=== PATIENT | male | born 1970 | race Caucasian/White ===

== ENCOUNTER → 2018-04-09 | Outpatient (REF) | payer BC | LOC: M WUC 11:04 | DX: N50.82 Scrotal pain (principal) | CPT/HCPCS: 87086 ==

== ENCOUNTER 2018-04-11 15:17 | Emergency (ER) | payer BC ==
[2018-04-11 17:12] LABS: BASO # 0.1 10^3/uL (0.0-0.2); BASO % 1.3 % (0.0-1.0); EOS % 0.3 % (0.0-3.0); HEMATOCRIT 42.7 % (42.0-52.0); HEMOGLOBIN 14.2 g/dl (13.5-17.5); IMMATURE GRANULOCYTE % 0.3 % (0-3.0); LYMPH # 3.1 10^3/uL (1.5-4.5); LYMPH % 41.9 % (24.0-44.0); MEAN CORPUSCULAR HEMOGLOBIN 33.2 pg (27.0-33.0); MEAN CORPUSCULAR HGB CONC 33.3 g/dl (32.0-36.5); MEAN CORPUSCULAR VOLUME 99.8 fl (80.0-96.0); MONO # 0.6 10^3/uL (0.0-0.8); MONO % 8.2 % (0.0-5.0); NEUTROPHILS # 3.6 10^3/uL (1.8-7.7); PLATELET COUNT, AUTOMATED 215 10^3/uL (150-450); RED BLOOD COUNT 4.28 10^6/uL (4.30-6.10); RED CELL DISTRIBUTION WIDTH 13.5 % (11.5-14.5); WHITE BLOOD COUNT 7.4 10^3/uL (4.0-10.0)
[2018-04-11] MEDS: NS 1,000 ML IV (17:20)
[2018-04-11 17:33] LABS: KETONE, URINE AUTO RFX TRACE mg/dL (NEGATIVE); LEUKOCYTE ESTERASE UR AUTO RFX NEGATIVE (NEGATIVE); MUCUS, URINE RFX SMALL (NEGATIVE); NITRITE, URINE AUTO RFX NEGATIVE (NEGATIVE); RBC, URINE AUTO RFX 3 /HPF (0-3); SPECIFIC GRAVITY UR AUTO RFX 1.018 (1.002-1.035); SQUAM EPITHELIAL CELL UR AURFX 1 /HPF (0-6); WBC, URINE AUTO RFX 2 /HPF (0-3)
[2018-04-11 18:44] LABS: ANION GAP 11 MEQ/L (8-16); BLOOD UREA NITROGEN 11 MG/DL (7-18); CALCIUM LEVEL 8.6 MG/DL (8.5-10.1); CARBON DIOXIDE LEVEL 23 MEQ/L (21-32); CHLORIDE LEVEL 109 MEQ/L (98-107); CREATININE FOR GFR 0.64 MG/DL (0.70-1.30); ETHYL ALCOHOL (ETHANOL) 0.281 % (0.000-0.010); GLOMERULAR FILTRATION RATE > 60.0 (>60); GLUCOSE, FASTING 71 MG/DL (70-100); POTASSIUM SERUM 3.7 MEQ/L (3.5-5.1); SODIUM LEVEL 143 MEQ/L (136-145)
[2018-04-11] MEDS: cefTRIAXone SOD 250 MG VIAL (J0696) IM (19:20)
[2018-04-11 21:19] LABS: CHLAMYDIA DNA AMPLIFICATION POSITIVE (NEGATIVE); GC DNA AMPLIFICATION NEGATIVE (NEGATIVE)
== END 2018-04-11 19:21 | disposition home or self-care (01) ==
LOC: M ED 15:17
DX: N45.1 Epididymitis (principal)
CPT/HCPCS: J0696

== ENCOUNTER 2018-06-10 10:26 | Day surgery (SDC) | payer BC ==
[2018-06-10] MEDS ORDERED: PROPOFOL 200 MG/20 ML VIAL As Ordered (10:41)
[2018-06-10] MEDS ORDERED: dexameTHASONE 4 MG/ML 1ML VIAL (J1100) As Ordered (10:42)
[2018-06-10] MEDS ORDERED: ROCURONIUM BROMIDE 50 MG/5 ML VIAL As Ordered ×2 (10:42→12:55)
[2018-06-10] MEDS ORDERED: LIDOCAINE 2% INJ 100 MG/5 ML SDV (FOR ANES.) As Ordered (10:42)
[2018-06-10] MEDS ORDERED: ONDANSETRON 4MG/2ML VIAL (J2405) As Ordered (10:42)
[2018-06-10] MEDS ORDERED: fentaNYL 250 MCG/5 ML INJECTION (J3010) As Ordered (10:43)
[2018-06-10] MEDS ORDERED: MIDAZOLAM INJ 2 MG/2 ML VIAL (J2250) As Ordered (10:43)
[2018-06-10] MEDS: LR 1,000 ML IV ×2 (11:00→13:25)
[2018-06-10] MEDS ORDERED: MIDAZOLAM INJ 2 MG/2 ML VIAL (J2250) IV (11:15)
[2018-06-10] MEDS: ceFAZolin SOD 1 GM in D5W MINI-BAG PLUS 50 ML IV (12:07)
[2018-06-10] MEDS: BUPIVACAINE/EPIN 0.25% 30 ML VIAL As Ordered (12:15)
[2018-06-10] MEDS ORDERED: KETOROLAC 60 MG/2 ML VIAL (J1885) As Ordered (12:20)
[2018-06-10] MEDS ORDERED: SUGAMMADEX SODIUM 500 MG/5 ML VIAL (BRIDION) As Ordered (12:23)
[2018-06-10] MEDS ORDERED: PHENYLephrine HCL 500 MCG/5 ML (100MCG/ML) SYRINGE (J2370) As Ordered (12:26)
[2018-06-10] MEDS ORDERED: ePHEDrine SULFATE 25 MG/5 ML(5MG/ML) SYRINGE As Ordered (13:13)
[2018-06-10] MEDS ORDERED: fentaNYL 100 MCG/2 ML INJECTION (J3010) IV (13:30)
[2018-06-10] MEDS ORDERED: LR 1,000 ML IV (13:30)
[2018-06-10] MEDS ORDERED: PERCOCET 5MG/325MG TAB PO ×2 (13:30→13:45)
[2018-06-10] MEDS ORDERED: ONDANSETRON 4MG/2ML VIAL (J2405) IV ×2 (13:30→13:45)
[2018-06-10] MEDS ORDERED: HYDROMORPHONE HCL 0.5 MG/ 0.5 ML SYRINGE (J1170 PER 1) IV (13:30)
[2018-06-10] MEDS ORDERED: METOCLOPRAMIDE INJ 10MG/2ML VIAL (J2765) IV (13:30)
[2018-06-10] MEDS ORDERED: MORPHINE 4 MG/ML 1ML VIAL/SYRINGE (J2270) IV (13:45)
== END 2018-06-10 15:37 | disposition home or self-care (01) ==
LOC: M SDC 10:26
DX: K40.90 Unilateral inguinal hernia, without obstruction or gangrene, not specified as recurrent (principal); F17.210 Nicotine dependence, cigarettes, uncomplicated; Z79.899 Other long term (current) drug therapy
CPT/HCPCS: 49650

== ENCOUNTER → 2018-11-09 | Outpatient (CLI) | payer BC ==
[~2018-11-09] MED LIST: CIPR500T3 PO; DOXY100C37 PO; HYDR-3715 PO; IBUP-1022 PO; IBUP80TA PO; VIAG100T PO
--- NOTE | 2018-11-09 17:51 | REP ---
Chest two views HISTORY: Cough Comparison: None The lungs are clear. The heart is normal in size. The pulmonary vasculature is normal in appearance. The bony structure is intact. IMPRESSION: No acute disease. Electronically Signed by Dhiraj Dia MD 11/09/2018 05:42 P
[2018-11-09 18:10] LABS: BASO # 0.1 10^3/uL (0.0-0.2); BASO % 1.6 % (0.0-1.0); HEMOGLOBIN 14.5 g/dl (13.5-17.5); LYMPH # 2.7 10^3/uL (1.5-4.5); LYMPH % 33.5 % (24.0-44.0); MEAN CORPUSCULAR HEMOGLOBIN 33.4 pg (27.0-33.0); MEAN CORPUSCULAR HGB CONC 33.7 g/dl (32.0-36.5); MEAN CORPUSCULAR VOLUME 99.1 fl (80.0-96.0); MONO # 0.7 10^3/uL (0.0-0.8); MONO % 8.2 % (0.0-5.0); NEUTROPHILS # 4.5 10^3/uL (1.8-7.7); NEUTROPHILS % 56.4 % (36.0-66.0); PLATELET COUNT, AUTOMATED 223 10^3/uL (150-450); RED BLOOD COUNT 4.34 10^6/uL (4.30-6.10); WHITE BLOOD COUNT 7.9 10^3/uL (4.0-10.0)
[2018-11-09 18:46] LABS: ALBUMIN 4.2 GM/DL (3.2-5.2); ALT/SGPT 129 U/L (12-78); BILIRUBIN,DIRECT 0.2 MG/DL (0.0-0.2); BILIRUBIN,TOTAL 0.7 MG/DL (0.2-1.0); BLOOD UREA NITROGEN 9 MG/DL (7-18); C REACTIVE PROTEIN QUANTITATIV < 0.30 MG/DL (0.00-0.30); CALCIUM LEVEL 8.6 MG/DL (8.5-10.1); CARBON DIOXIDE LEVEL 30 MEQ/L (21-32); CHLORIDE LEVEL 107 MEQ/L (98-107); CREATININE FOR GFR 0.67 MG/DL (0.70-1.30); GLOMERULAR FILTRATION RATE > 60.0 (>56); GLUCOSE, FASTING 76 MG/DL (70-100); MAGNESIUM LEVEL 2.4 MG/DL (1.8-2.4); POTASSIUM SERUM 3.6 MEQ/L (3.5-5.1); SODIUM LEVEL 142 MEQ/L (136-145); TOTAL PROTEIN 8.1 GM/DL (6.4-8.2)
[2018-11-09 18:51] LABS: VITAMIN B12 LEVEL 490 PG/ML (247-911)
[2018-11-09 19:30] LABS: HIV 1&2 SCREEN CENTAUR NEGATIVE (NEGATIVE)
[2018-11-12 00:06] LABS: EBV AB TO NUCLEAR ANTIGEN >600.0 U/mL (0.0-17.9); EBV VIRAL CAPSID AG IgM <36.0 U/mL (0.0-35.9); Lyme Disease IgG/IgM Antibodie <0.91 ISR (0.00-0.90); Lyme Disease IgM Ab Quantitati <0.80 index (0.00-0.79)
== END ==
LOC: M LAB 17:12
PROVIDERS: ATTEND Physician Assistant Medical
DX: R53.83 Other fatigue (principal); R05 Cough; R53.81 Other malaise

== ENCOUNTER → 2019-05-31 | Outpatient (CLI) | payer BC ==
--- NOTE | 2019-06-01 01:45 | REP ---
Clinical: Cough and shortness of breath . Comparison: 11/09/2018 . Technique: PA and lateral. Findings: The mediastinum and cardiac silhouette are normal. The lung [place] are clear and without acute consolidation, effusion, or pneumothorax. The skeletal structures are intact and normal. Impression: 1. No acute cardiopulmonary process. Electronically Signed by Shubham Abbott MD 06/01/2019 01:36 A
== END ==
LOC: M RAD 21:26
PROVIDERS: ATTEND Physician Assistant Medical
DX: R05 Cough (principal); R06.02 Shortness of breath

== ENCOUNTER 2019-08-30 13:58 | Emergency (ER) | payer BC ==
[~2019-08-30] VITALS: Ht 188 cm; Wt 75.7 kg
[2019-08-30] MEDS ORDERED: ALBUTEROL SULFATE 2.5 MG/0.5 ML INH NEB SOLN NEB ONE (15:30)
[2019-08-30 15:47] LABS: BASO # 0.1 10^3/uL (0.0-0.2); BASO % 2.4 % (0.0-1.0); HEMATOCRIT 40.3 % (42.0-52.0); HEMOGLOBIN 13.5 g/dl (13.5-17.5); LYMPH # 1.5 10^3/uL (1.5-5.0); LYMPH % 35.8 % (24.0-44.0); MEAN CORPUSCULAR HEMOGLOBIN 33.5 pg (27.0-33.0); MEAN CORPUSCULAR HGB CONC 33.5 g/dl (32.0-36.5); MONO # 0.5 10^3/uL (0.0-0.8); MONO % 11.4 % (0.0-5.0); NEUTROPHILS # 2.1 10^3/uL (1.5-8.5); NEUTROPHILS % 50.2 % (36.0-66.0); PLATELET COUNT, AUTOMATED 125 10^3/uL (150-450); RED BLOOD COUNT 4.03 10^6/uL (4.30-6.10); WHITE BLOOD COUNT 4.2 10^3/uL (4.0-10.0)
--- NOTE | 2019-08-30 16:04 | REP ---
Clinical: Cough and shortness of breath . Comparison: 05/31/2019 . Technique: PA and lateral. Findings: The mediastinum and cardiac silhouette are normal. No focal consolidation is appreciated although prominent interstitial markings raise the possibility of bronchitis. No effusion. No pneumothorax. The skeletal structures are intact and normal. Impression: 1. Possible bronchitis. No focal consolidation. Electronically Signed by Shubham Abbott MD 08/30/2019 03:56 P
[2019-08-30 16:09] LABS: INFLUENZA A AMPLIFICATION NEGATIVE (NEGATIVE); INFLUENZA B AMPLIFICATION NEGATIVE (NEGATIVE)
[2019-08-30 16:12] LABS: ALBUMIN 4.2 GM/DL (3.2-5.2); ALT/SGPT 154 U/L (12-78); BILIRUBIN,TOTAL 0.6 MG/DL (0.2-1.0); BLOOD UREA NITROGEN 10 MG/DL (7-18); CALCIUM LEVEL 8.3 MG/DL (8.5-10.1); CARBON DIOXIDE LEVEL 26 MEQ/L (21-32); CHLORIDE LEVEL 105 MEQ/L (98-107); CREATININE FOR GFR 0.82 MG/DL (0.70-1.30); GLOMERULAR FILTRATION RATE > 60.0 (>56); GLUCOSE, FASTING 98 MG/DL (70-100); POTASSIUM SERUM 3.7 MEQ/L (3.5-5.1); SODIUM LEVEL 140 MEQ/L (136-145); TOTAL PROTEIN 7.6 GM/DL (6.4-8.2)
--- NOTE | 2019-08-30 16:59 | REP ---
And right upper quadrant sonography: History: Fatigue, elevated LFTs. Findings: Scanning through right upper quadrant of the abdomen demonstrates normal sized thin-walled gallbladder without evidence of stone or polyp. Common bile duct is normal measuring 0.5 cm in greatest diameter. There is increased echogenicity and decreased insonation of the liver diffusely consistent with fatty infiltration. The liver is not enlarged overall. No focal liver lesion is seen. Limited views of the pancreas show no abnormality. There is no evidence of ascites or right renal abnormality. The right kidney measures 13.4 x 6.5 x 4.7 cm. Impression: Findings consistent with fatty infiltration of the liver diffusely. Otherwise negative right upper quadrant sonography. Electronically Signed by Dante Marcum MD 08/30/2019 04:51 P
[2019-08-30 17:13] LABS: INR 0.98; PROTHROMBIN TIME 12.7 SECONDS (11.8-14.0)
[2019-08-30] MEDS ORDERED: IRON65TA2 PO (17:21)
[2019-08-30] MEDS ORDERED: AZIT-10 PO (17:21)
[2019-08-30 17:26] VITALS: BP 133/80
== END 2019-08-30 17:32 | disposition home or self-care (01) ==
LOC: M ED 13:58
DX: J20.9 Acute bronchitis, unspecified (principal); D64.9 Anemia, unspecified; F17.210 Nicotine dependence, cigarettes, uncomplicated

== ENCOUNTER 2020-04-12 18:20 | Emergency (ER) | payer BC ==
[~2020-04-12] VITALS: Ht 188 cm; Wt 74.9 kg
[~2020-04-12 18:20] MED LIST changes: +AZIT-10 PO; +IRON65TA2 PO
[2020-04-12] MEDS ORDERED: IBUP80TA (18:29)
--- NOTE | 2020-04-12 20:09 | REPVR ---
PROCEDURE INFORMATION: Exam: US Scrotum Exam date and time: 04/12/2020 7:45 PM Age: 49 years old Clinical indication: Other: RT groin pain; Prior surgery; Surgery date: 6+ months; Surgery type: Bilateral hernia repair in 2018; Additional info: Right groin pain TECHNIQUE: Imaging protocol: Real-time ultrasound of the scrotum and contents with color Doppler and image documentation. COMPARISON: Pelvis, limited US 04/11/2018 5:27 PM FINDINGS: Right testicle: Normal. No mass. No torsion. Normal vascular flow. Left testicle: Normal. No mass. No torsion. Normal vascular flow. Epididymides: Normal. Scrotum: No hydrocele or varicocele. No hernia. IMPRESSION: No acute sonographic findings. Electronically signed by: Rodo Lee On 04/12/2020 20:09:09 PM
[2020-04-12 20:37] VITALS: BP 175/94
== END 2020-04-12 20:41 | disposition home or self-care (01) ==
LOC: M ED 18:20
DX: S76.811A Strain of other specified muscles, fascia and tendons at thigh level, right thigh, initial encounter (principal); X50.0XXA Overexertion from strenuous movement or load, initial encounter; Y92.89 Other specified places as the place of occurrence of the external cause; Y93.89 Activity, other specified; Y99.8 Other external cause status

== ENCOUNTER 2020-12-31 19:22 | Emergency (ER) | payer BC, SELFPAY ==
[~2020-12-31] VITALS: Ht 188 cm; Wt 84.1 kg
[~2020-12-31 19:22] MED LIST changes: -DOXY100C37 PO; +DOXY1CAP62 PO; +IBUP80TA
[2020-12-31 19:40] VITALS: BP 131/80
== END 2021-01-01 00:25 | disposition left against medical advice (07) ==
LOC: M ED 19:22
DX: Z53.21 Procedure and treatment not carried out due to patient leaving prior to being seen by health care provider (principal)

== ENCOUNTER 2021-05-21 12:15 | Inpatient (IN) | payer BC, SELFPAY ==
[~2021-05-21] VITALS: Ht 188 cm; Wt 84.4 kg
[2021-05-21] VITALS (12 sets, daily range): BP systolic 134–175; BP diastolic 87–99
[2021-05-21] MEDS: PANTOPRAZOLE 40MG TAB (PROTONIX) PO SCH (09:00)
[2021-05-21] MEDS: MOM 30ML SUSPENSION UDC PO SCH (09:00)
[~2021-05-21 12:15] MED LIST changes: +DOXY-443 PO; -DOXY1CAP62 PO
[2021-05-21] MEDS ORDERED: ALBU8.5H INH (12:35)
[2021-05-21] MEDS ORDERED: PERCOCET 5MG/325MG TAB PO PRN (16:55)
[2021-05-21] MEDS ORDERED: ONDANSETRON 4MG/2ML VIAL IV PRN (16:55)
[2021-05-21] MEDS ORDERED: LEVALBUTEROL 1.25 MG/0.5 ML CONCENTRATE NEB NEB PRN (16:55)
[2021-05-21] MEDS ORDERED: BISACODYL 10 MG SUPP PR PRN (16:55)
[2021-05-21] MEDS ORDERED: NORCO, ANEXSIA 5/325MG TABLET (HYDROcodone/ACETAMINOPHEN) PO PRN (16:55)
[2021-05-21] MEDS ORDERED: AZIT-12 PO (17:05)
[2021-05-21] MEDS ORDERED: HOME MED LIST COMPLETE! XX SCH (17:05)
[2021-05-21 17:18] LABS: BASO # 0.1 10^3/uL (0.0-0.2); BASO % 2.2 % (0.0-1.0); HEMATOCRIT 42.8 % (42.0-52.0); HEMOGLOBIN 14.5 g/dl (13.5-17.5); LYMPH # 1.8 10^3/uL (1.5-5.0); LYMPH % 33.8 % (24.0-44.0); MEAN CORPUSCULAR HEMOGLOBIN 35.4 pg (27.0-33.0); MEAN CORPUSCULAR HGB CONC 33.9 g/dl (32.0-36.5); MEAN CORPUSCULAR VOLUME 104.4 fl (80.0-96.0); MONO # 0.6 10^3/uL (0.0-0.8); MONO % 11.2 % (2.0-8.0); NEUTROPHILS # 2.8 10^3/uL (1.5-8.5); NEUTROPHILS % 52.2 % (36.0-66.0); PLATELET COUNT, AUTOMATED 133 10^3/uL (150-450); WHITE BLOOD COUNT 5.4 10^3/uL (4.0-10.0)
[2021-05-21] MEDS ORDERED: MIDAZOLAM INJ 2MG/2ML VIAL (J2250 PER 1MG) As Ordered ONE ×2 (17:19→17:20)
[2021-05-21] MEDS ORDERED: LIDOCAINE 1% MDV 20ML VIAL As Ordered ONE (17:21)
[2021-05-21] MEDS ORDERED: flumazeniL 0.5 MG/5 ML VIAL As Ordered ONE (17:21)
[2021-05-21 17:26] LABS: RSV AMPLIFICATION NEGATIVE (NEGATIVE)
[2021-05-21 17:26] LABS: ABG BASE EXCESS 2.1 (-2.0-2.0); ABG HCO3 25.8 MEQ/L (22.0-26.0); ABG O2 SATURATION 95.3 % (95.0-99.0); ABG PARTIAL PRESSURE CO2 37.3 mmHg (35.0-45.0); ABG PARTIAL PRESSURE O2 77.3 mmHg (75.0-100.0); ABG STANDARD HCO3 26.3 MEQ/L (22.0-26.0); ABG pH (ARTERIAL) 7.458 UNITS (7.350-7.450)
[2021-05-21] MEDS ORDERED: ACETAMINOPHEN TAB 650MG DOSE (2X325MG) PO PRN (17:30)
[2021-05-21] MEDS ORDERED: ALBUTEROL 90 MCG/ACT 8GM HFA INHALER INH PRN (17:30)
[2021-05-21] MEDS ORDERED: HEPARIN SOD (PORCINE) 5000UNITS/ML 1ML VIAL/SYRINGE SC SCH (17:30)
[2021-05-21 17:47] LABS: BLOOD UREA NITROGEN 10 MG/DL (7-18); CALCIUM LEVEL 8.9 MG/DL (8.5-10.1); CARBON DIOXIDE LEVEL 30 MEQ/L (21-32); CHLORIDE LEVEL 102 MEQ/L (98-107); CREATININE FOR GFR 0.65 MG/DL (0.70-1.30); GLOMERULAR FILTRATION RATE > 60.0 (>56); GLUCOSE, FASTING 84 MG/DL (70-100); POTASSIUM SERUM 3.7 MEQ/L (3.5-5.1); SODIUM LEVEL 144 MEQ/L (136-145)
[2021-05-21 17:49] LABS: INR 1.01; PROTHROMBIN TIME 13.7 SECONDS (12.7-14.5)
[2021-05-21] MEDS ORDERED: MIDAZOLAM INJ 2MG/2ML VIAL (J2250 PER 1MG) IV ONE (18:08)
[2021-05-21] MEDS ORDERED: LIDOCAINE 1% MDV 20ML VIAL SC ONE (18:12)
[2021-05-21] MEDS: KETOROLAC 30 MG/ML 1ML VIAL IV SCH (19:18)
[2021-05-21] MEDS: KCL 20MEQ IN D5/NS 1000ML 1,000 ML IV SCH (19:19)
[2021-05-21] MEDS: LEVALBUTEROL 1.25 MG/0.5 ML CONCENTRATE NEB NEB SCH (19:32)
[2021-05-21] MEDS: THIAMINE 100 MG TAB PO SCH (20:34)
[2021-05-21] MEDS: MULTIVITAMINS/MINERALS THERAP 1 TAB PO SCH (20:34)
[2021-05-21] MEDS: FOLIC ACID 1 MG TAB PO SCH (20:34)
[2021-05-21] MEDS: DOCUSATE SODIUM 100MG CAPSULE PO SCH (20:35)
[2021-05-21] MEDS: HEPARIN SOD (PORCINE) 5000UNITS/ML 1ML VIAL/SYRINGE SC SCH (20:35)
[2021-05-21] MEDS: PERCOCET 5MG/325MG TAB PO PRN (20:47)
[2021-05-21] MEDS: LORazepam 2 MG TAB PO PRN (20:47)
[2021-05-21 20:55] LABS: HEMOGLOBIN A1c 4.8 %
[2021-05-22] VITALS (8 sets, daily range): BP systolic 123–153; BP diastolic 74–93
[2021-05-22] MEDS: KETOROLAC 30 MG/ML 1ML VIAL IV SCH ×4 (00:20→18:06)
[2021-05-22] MEDS: LORazepam 2 MG TAB PO PRN ×5 (00:20→20:05)
[2021-05-22] MEDS: LEVALBUTEROL 1.25 MG/0.5 ML CONCENTRATE NEB NEB SCH ×4 (02:29→19:29)
[2021-05-22] MEDS: KCL 20MEQ IN D5/NS 1000ML 1,000 ML IV SCH (05:22)
[2021-05-22 05:49] LABS: BASO # 0.1 10^3/uL (0.0-0.2); BASO % 2.1 % (0.0-1.0); HEMATOCRIT 37.6 % (42.0-52.0); HEMOGLOBIN 12.7 g/dl (13.5-17.5); LYMPH # 1.1 10^3/uL (1.5-5.0); LYMPH % 32.8 % (24.0-44.0); MEAN CORPUSCULAR HEMOGLOBIN 35.2 pg (27.0-33.0); MEAN CORPUSCULAR HGB CONC 33.8 g/dl (32.0-36.5); MEAN CORPUSCULAR VOLUME 104.2 fl (80.0-96.0); MONO # 0.5 10^3/uL (0.0-0.8); MONO % 15.1 % (2.0-8.0); NEUTROPHILS # 1.7 10^3/uL (1.5-8.5); NEUTROPHILS % 49.7 % (36.0-66.0); PLATELET COUNT, AUTOMATED 106 10^3/uL (150-450); RED BLOOD COUNT 3.61 10^6/uL (4.30-6.10); WHITE BLOOD COUNT 3.3 10^3/uL (4.0-10.0)
[2021-05-22 06:33] LABS: ALT/SGPT 48 U/L (12-78); BILIRUBIN,TOTAL 1.4 MG/DL (0.2-1.0); BLOOD UREA NITROGEN 9 MG/DL (7-18); CALCIUM LEVEL 8.1 MG/DL (8.5-10.1); CARBON DIOXIDE LEVEL 28 MEQ/L (21-32); CHLORIDE LEVEL 106 MEQ/L (98-107); CREATININE FOR GFR 0.59 MG/DL (0.70-1.30); GLOMERULAR FILTRATION RATE > 60.0 (>56); GLUCOSE, FASTING 91 MG/DL (70-100); MAGNESIUM LEVEL 1.9 MG/DL (1.8-2.4); POTASSIUM SERUM 3.4 MEQ/L (3.5-5.1); SODIUM LEVEL 143 MEQ/L (136-145); TOTAL PROTEIN 6.8 GM/DL (6.4-8.2)
[2021-05-22] MEDS ORDERED: ISOVUE-370 76% 100ML VIAL As Ordered ONE (07:53)
[2021-05-22] MEDS: THIAMINE 100 MG TAB PO SCH ×2 (08:54→20:05)
[2021-05-22] MEDS: DOCUSATE SODIUM 100MG CAPSULE PO SCH ×2 (08:54→20:05)
[2021-05-22] MEDS: MULTIVITAMINS/MINERALS THERAP 1 TAB PO SCH (08:54)
[2021-05-22] MEDS: PANTOPRAZOLE 40MG TAB (PROTONIX) PO SCH (08:54)
[2021-05-22] MEDS: HEPARIN SOD (PORCINE) 5000UNITS/ML 1ML VIAL/SYRINGE SC SCH ×2 (08:54→20:05)
[2021-05-22] MEDS: FOLIC ACID 1 MG TAB PO SCH (08:54)
[2021-05-22] MEDS: MOM 30ML SUSPENSION UDC PO SCH (08:55)
[2021-05-22] MEDS ORDERED: POTASSIUM CHLORIDE 10MEQ SR TABLET PO ONE (13:00)
[2021-05-22] MEDS: OXAZEPAM 15 MG CAP PO SCH ×2 (13:04→21:16)
[2021-05-22] MEDS: ACETAMINOPHEN TAB 650MG DOSE (2X325MG) PO PRN (21:16)
[2021-05-23] VITALS: BP 165/104
[2021-05-23] MEDS: KETOROLAC 30 MG/ML 1ML VIAL IV SCH ×4 (00:01→19:41)
[2021-05-23] MEDS: LORazepam 2 MG TAB PO PRN (00:07)
[2021-05-23] MEDS: PERCOCET 5MG/325MG TAB PO PRN (00:07)
[2021-05-23] MEDS: LEVALBUTEROL 1.25 MG/0.5 ML CONCENTRATE NEB NEB SCH ×4 (01:24→19:19)
[2021-05-23 04:00] VITALS: BP 148/95
[2021-05-23] MEDS: OXAZEPAM 15 MG CAP PO SCH ×3 (05:19→22:28)
[2021-05-23 05:39] LABS: BASO # 0.1 10^3/uL (0.0-0.2); BASO % 1.6 % (0.0-1.0); HEMATOCRIT 38.7 % (42.0-52.0); HEMOGLOBIN 13.2 g/dl (13.5-17.5); LYMPH # 1.2 10^3/uL (1.5-5.0); LYMPH % 31.3 % (24.0-44.0); MEAN CORPUSCULAR HEMOGLOBIN 35.6 pg (27.0-33.0); MEAN CORPUSCULAR HGB CONC 34.1 g/dl (32.0-36.5); MEAN CORPUSCULAR VOLUME 104.3 fl (80.0-96.0); MONO # 0.6 10^3/uL (0.0-0.8); MONO % 14.5 % (2.0-8.0); NEUTROPHILS % 52.3 % (36.0-66.0); RED BLOOD COUNT 3.71 10^6/uL (4.30-6.10); WHITE BLOOD COUNT 3.8 10^3/uL (4.0-10.0)
[2021-05-23 05:54] LABS: PLATELET COUNT, AUTOMATED 87 10^3/uL (150-450)
[2021-05-23 05:59] LABS: BLOOD UREA NITROGEN 7 MG/DL (7-18); CALCIUM LEVEL 8.6 MG/DL (8.5-10.1); CARBON DIOXIDE LEVEL 27 MEQ/L (21-32); CHLORIDE LEVEL 105 MEQ/L (98-107); CREATININE FOR GFR 0.51 MG/DL (0.70-1.30); GLOMERULAR FILTRATION RATE > 60.0 (>56); GLUCOSE, FASTING 89 MG/DL (70-100); POTASSIUM SERUM 3.3 MEQ/L (3.5-5.1); SODIUM LEVEL 139 MEQ/L (136-145)
[2021-05-23 08:00] VITALS: BP 161/99
[2021-05-23] MEDS: MULTIVITAMINS/MINERALS THERAP 1 TAB PO SCH (08:59)
[2021-05-23] MEDS: FOLIC ACID 1 MG TAB PO SCH (08:59)
[2021-05-23] MEDS: DOCUSATE SODIUM 100MG CAPSULE PO SCH ×2 (08:59→20:54)
[2021-05-23] MEDS: THIAMINE 100 MG TAB PO SCH ×2 (08:59→20:54)
[2021-05-23] MEDS: PANTOPRAZOLE 40MG TAB (PROTONIX) PO SCH (08:59)
[2021-05-23] MEDS: HEPARIN SOD (PORCINE) 5000UNITS/ML 1ML VIAL/SYRINGE SC SCH ×2 (08:59→20:54)
[2021-05-23] MEDS: MOM 30ML SUSPENSION UDC PO SCH (09:00)
[2021-05-23] MEDS ORDERED: POTASSIUM CHLORIDE 10MEQ SR TABLET PO ONE (10:00)
[2021-05-23 12:00] VITALS: BP 153/94
[2021-05-23] MEDS: NICOTINE 21MG/24HR 1 EA TRANSDERMAL TD SCH (12:59)
[2021-05-23 16:00] VITALS: BP 152/106
[2021-05-23 20:00] VITALS: BP 136/87
[2021-05-24] VITALS (10 sets, daily range): BP systolic 131–164; BP diastolic 90–104
[2021-05-24] MEDS: KETOROLAC 30 MG/ML 1ML VIAL IV SCH ×4 (00:21→18:09)
[2021-05-24] MEDS: LEVALBUTEROL 1.25 MG/0.5 ML CONCENTRATE NEB NEB SCH ×4 (02:00→19:42)
[2021-05-24] MEDS: OXAZEPAM 15 MG CAP PO SCH ×3 (05:33→21:14)
[2021-05-24 06:28] LABS: BASO # 0.1 10^3/uL (0.0-0.2); EOS # 0.2 10^3/uL (0.0-0.5); EOS % 3.5 % (0.0-3.0); HEMATOCRIT 42.4 % (42.0-52.0); HEMOGLOBIN 14.3 g/dl (13.5-17.5); LYMPH % 16.5 % (24.0-44.0); MEAN CORPUSCULAR HEMOGLOBIN 34.8 pg (27.0-33.0); MEAN CORPUSCULAR HGB CONC 33.7 g/dl (32.0-36.5); MEAN CORPUSCULAR VOLUME 103.2 fl (80.0-96.0); MONO # 0.7 10^3/uL (0.0-0.8); NEUTROPHILS # 4.3 10^3/uL (1.5-8.5); NEUTROPHILS % 67.5 % (36.0-66.0); PLATELET COUNT, AUTOMATED 102 10^3/uL (150-450); RED BLOOD COUNT 4.11 10^6/uL (4.30-6.10); WHITE BLOOD COUNT 6.3 10^3/uL (4.0-10.0)
[2021-05-24 06:54] LABS: BLOOD UREA NITROGEN 7 MG/DL (7-18); CALCIUM LEVEL 9.5 MG/DL (8.5-10.1); CARBON DIOXIDE LEVEL 27 MEQ/L (21-32); CHLORIDE LEVEL 103 MEQ/L (98-107); CREATININE FOR GFR 0.59 MG/DL (0.70-1.30); GLOMERULAR FILTRATION RATE > 60.0 (>56); GLUCOSE, FASTING 114 MG/DL (70-100); POTASSIUM SERUM 3.9 MEQ/L (3.5-5.1); SODIUM LEVEL 138 MEQ/L (136-145)
[2021-05-24] MEDS: FOLIC ACID 1 MG TAB PO SCH (08:52)
[2021-05-24] MEDS: THIAMINE 100 MG TAB PO SCH (08:52)
[2021-05-24] MEDS: PANTOPRAZOLE 40MG TAB (PROTONIX) PO SCH (08:52)
[2021-05-24] MEDS: MULTIVITAMINS/MINERALS THERAP 1 TAB PO SCH (08:52)
[2021-05-24] MEDS: HEPARIN SOD (PORCINE) 5000UNITS/ML 1ML VIAL/SYRINGE SC SCH ×2 (08:52→21:14)
[2021-05-24] MEDS: DOCUSATE SODIUM 100MG CAPSULE PO SCH ×2 (08:53→21:00)
[2021-05-24] MEDS: NICOTINE 21MG/24HR 1 EA TRANSDERMAL TD SCH (08:53)
[2021-05-24] MEDS: MOM 30ML SUSPENSION UDC PO SCH (08:53)
[2021-05-24 09:21] LABS: MAGNESIUM LEVEL 1.5 MG/DL (1.8-2.4)
[2021-05-24] MEDS ORDERED: MAG SULF 1GM/100ML (MAG RUN) 1 GM in IV 1 EA IV ONE (11:00)
[2021-05-25] VITALS (8 sets, daily range): BP systolic 130–158; BP diastolic 79–103
[2021-05-25] MEDS: KETOROLAC 30 MG/ML 1ML VIAL IV SCH ×4 (00:49→18:03)
[2021-05-25] MEDS: LEVALBUTEROL 1.25 MG/0.5 ML CONCENTRATE NEB NEB SCH ×4 (01:24→19:39)
[2021-05-25] MEDS: OXAZEPAM 15 MG CAP PO SCH ×3 (06:04→21:29)
[2021-05-25 06:09] LABS: BASO # 0.1 10^3/uL (0.0-0.2); EOS # 0.2 10^3/uL (0.0-0.5); EOS % 2.8 % (0.0-3.0); HEMATOCRIT 39.9 % (42.0-52.0); HEMOGLOBIN 13.6 g/dl (13.5-17.5); LYMPH # 1.3 10^3/uL (1.5-5.0); LYMPH % 21.9 % (24.0-44.0); MEAN CORPUSCULAR HEMOGLOBIN 35.6 pg (27.0-33.0); MEAN CORPUSCULAR HGB CONC 34.1 g/dl (32.0-36.5); MEAN CORPUSCULAR VOLUME 104.5 fl (80.0-96.0); MONO # 0.8 10^3/uL (0.0-0.8); MONO % 13.7 % (2.0-8.0); NEUTROPHILS # 3.7 10^3/uL (1.5-8.5); NEUTROPHILS % 59.9 % (36.0-66.0); PLATELET COUNT, AUTOMATED 108 10^3/uL (150-450); RED BLOOD COUNT 3.82 10^6/uL (4.30-6.10); WHITE BLOOD COUNT 6.1 10^3/uL (4.0-10.0)
[2021-05-25 06:27] LABS: BLOOD UREA NITROGEN 13 MG/DL (7-18); CALCIUM LEVEL 8.9 MG/DL (8.5-10.1); CARBON DIOXIDE LEVEL 26 MEQ/L (21-32); CHLORIDE LEVEL 107 MEQ/L (98-107); CREATININE FOR GFR 0.59 MG/DL (0.70-1.30); GLOMERULAR FILTRATION RATE > 60.0 (>56); GLUCOSE, FASTING 103 MG/DL (70-100); POTASSIUM SERUM 3.4 MEQ/L (3.5-5.1); SODIUM LEVEL 139 MEQ/L (136-145)
[2021-05-25] MEDS: NICOTINE 21MG/24HR 1 EA TRANSDERMAL TD SCH (08:19)
[2021-05-25] MEDS: MULTIVITAMINS/MINERALS THERAP 1 TAB PO SCH (08:20)
[2021-05-25] MEDS: FOLIC ACID 1 MG TAB PO SCH (08:20)
[2021-05-25] MEDS: DOCUSATE SODIUM 100MG CAPSULE PO SCH ×2 (08:20→21:00)
[2021-05-25] MEDS: PANTOPRAZOLE 40MG TAB (PROTONIX) PO SCH (08:20)
[2021-05-25] MEDS: HEPARIN SOD (PORCINE) 5000UNITS/ML 1ML VIAL/SYRINGE SC SCH ×2 (08:20→21:28)
[2021-05-25] MEDS: MOM 30ML SUSPENSION UDC PO SCH (08:20)
[2021-05-25] MEDS ORDERED: POTASSIUM CHLORIDE 10MEQ SR TABLET PO ONE (09:50)
[2021-05-25 09:59] LABS: MAGNESIUM LEVEL 1.8 MG/DL (1.8-2.4)
[2021-05-25] MEDS ORDERED: MAG SULF 1GM/100ML (MAG RUN) 1 GM in IV 1 EA IV ONE (10:10)
[2021-05-25] MEDS ORDERED: LORazepam 2 MG TAB PO PRN (21:15)
[2021-05-25] MEDS ORDERED: LORazepam 2 MG/ML VIAL IV STA (21:55)
[2021-05-25] MEDS ORDERED: LORazepam 2 MG TAB XX PRN (22:05)
[2021-05-25] MEDS ORDERED: diazePAM 10MG/2ML SYRINGE (J3360 PER 5MG) IV ONE ×2 (22:10→23:40)
[2021-05-25] MEDS ORDERED: LORazepam 2 MG/ML VIAL IV PRN (22:15)
[2021-05-25] MEDS ORDERED: diazePAM 10MG/2ML SYRINGE (J3360 PER 5MG) As Ordered ONE (22:49)
[2021-05-25] MEDS ORDERED: HALOPERIDOL 5MG/ML VIAL (J1630 PER 1) IV ONE (22:50)
[2021-05-25] MEDS ORDERED: diazePAM 10MG/2ML SYRINGE (J3360 PER 5MG) IV PRN (22:50)
[2021-05-25] MEDS: dexmedeTOMidine 200 MCG in IV 1 EA IV SCH (23:07)
[2021-05-26] VITALS (27 sets, daily range): BP systolic 114–156; BP diastolic 64–99
[2021-05-26] MEDS: dexmedeTOMidine 200 MCG in IV 1 EA IV SCH ×10 (00:31→23:14)
[2021-05-26] MEDS: KETOROLAC 30 MG/ML 1ML VIAL IV SCH ×2 (02:00→07:00)
[2021-05-26] MEDS: LEVALBUTEROL 1.25 MG/0.5 ML CONCENTRATE NEB NEB SCH (02:00)
[2021-05-26] MEDS: diazePAM 10MG/2ML SYRINGE (J3360 PER 5MG) IV PRN ×6 (02:35→23:27)
[2021-05-26] MEDS ORDERED: OXAZEPAM 15 MG CAP PO SCH ×2 (03:00→06:00)
[2021-05-26 05:14] LABS: BASO # 0.1 10^3/uL (0.0-0.2); EOS # 0.2 10^3/uL (0.0-0.5); EOS % 2.6 % (0.0-3.0); HEMATOCRIT 38.8 % (42.0-52.0); LYMPH # 1.1 10^3/uL (1.5-5.0); LYMPH % 18.6 % (24.0-44.0); MEAN CORPUSCULAR HGB CONC 33.5 g/dl (32.0-36.5); MEAN CORPUSCULAR VOLUME 104.6 fl (80.0-96.0); MONO # 1.1 10^3/uL (0.0-0.8); MONO % 17.9 % (2.0-8.0); NEUTROPHILS # 3.5 10^3/uL (1.5-8.5); NEUTROPHILS % 59.4 % (36.0-66.0); PLATELET COUNT, AUTOMATED 118 10^3/uL (150-450); RED BLOOD COUNT 3.71 10^6/uL (4.30-6.10); WHITE BLOOD COUNT 5.9 10^3/uL (4.0-10.0)
[2021-05-26 05:26] LABS: BLOOD UREA NITROGEN 14 MG/DL (7-18); CALCIUM LEVEL 9.1 MG/DL (8.5-10.1); CARBON DIOXIDE LEVEL 25 MEQ/L (21-32); CHLORIDE LEVEL 108 MEQ/L (98-107); CREATININE FOR GFR 0.56 MG/DL (0.70-1.30); GLOMERULAR FILTRATION RATE > 60.0 (>56); GLUCOSE, FASTING 132 MG/DL (70-100); POTASSIUM SERUM 3.8 MEQ/L (3.5-5.1); SODIUM LEVEL 142 MEQ/L (136-145)
[2021-05-26] MEDS: MOM 30ML SUSPENSION UDC PO SCH (09:00)
[2021-05-26] MEDS: DOCUSATE SODIUM 100MG CAPSULE PO SCH ×2 (09:00→19:04)
[2021-05-26] MEDS: MULTIVITAMINS/MINERALS THERAP 1 TAB PO SCH (09:00)
[2021-05-26] MEDS: FOLIC ACID 1 MG TAB PO SCH (09:00)
[2021-05-26] MEDS: PANTOPRAZOLE 40MG TAB (PROTONIX) PO SCH (09:00)
[2021-05-26] MEDS ORDERED: diazePAM 10MG/2ML SYRINGE (J3360 PER 5MG) IV PRN (09:30)
[2021-05-26] MEDS: HEPARIN SOD (PORCINE) 5000UNITS/ML 1ML VIAL/SYRINGE SC SCH ×2 (11:49→20:40)
[2021-05-26] MEDS: NICOTINE 21MG/24HR 1 EA TRANSDERMAL TD SCH (11:50)
[2021-05-26] MEDS ORDERED: diazePAM 10MG/2ML SYRINGE (J3360 PER 5MG) IV STA (13:37)
[2021-05-26] MEDS: NS 1,000 ML IV SCH ×2 (14:38→22:25)
[2021-05-26] MEDS ORDERED: NS 1,000 ML IV ONE (19:25)
[2021-05-26 20:49] LABS: HEMATOCRIT 38.7 % (42.0-52.0); HEMOGLOBIN 13.1 g/dl (13.5-17.5); MEAN CORPUSCULAR HEMOGLOBIN 35.4 pg (27.0-33.0); MEAN CORPUSCULAR HGB CONC 33.9 g/dl (32.0-36.5); MEAN CORPUSCULAR VOLUME 104.6 fl (80.0-96.0); PLATELET COUNT, AUTOMATED 119 10^3/uL (150-450); WHITE BLOOD COUNT 6.2 10^3/uL (4.0-10.0)
[2021-05-26 21:07] LABS: ALBUMIN 2.8 GM/DL (3.2-5.2); ALT/SGPT 39 U/L (12-78); BLOOD UREA NITROGEN 12 MG/DL (7-18); CALCIUM LEVEL 8.2 MG/DL (8.5-10.1); CARBON DIOXIDE LEVEL 25 MEQ/L (21-32); CHLORIDE LEVEL 111 MEQ/L (98-107); CREATININE FOR GFR 0.48 MG/DL (0.70-1.30); GLOMERULAR FILTRATION RATE > 60.0 (>56); GLUCOSE, FASTING 113 MG/DL (70-100); MAGNESIUM LEVEL 1.6 MG/DL (1.8-2.4); POTASSIUM SERUM 3.6 MEQ/L (3.5-5.1); SODIUM LEVEL 142 MEQ/L (136-145); TOTAL PROTEIN 6.4 GM/DL (6.4-8.2); TROPONIN I 0.11 NG/ML (< 0.10)
[2021-05-26] MEDS ORDERED: ASPIRIN 300 MG SUPP PR ONE (21:30)
[2021-05-26 21:54] LABS: NT-PRO BNP 3571 PG/ML (<125)
[2021-05-26] MEDS: MAG SULF 1GM/100ML (MAG RUN) 1 GM in IV 1 EA IV SCH (22:07)
[2021-05-26] MEDS ORDERED: ISOVUE-370 76% 100ML VIAL As Ordered ONE (23:19)
[2021-05-27] VITALS (11 sets, daily range): BP systolic 140–163; BP diastolic 75–95
[2021-05-27] MEDS: MAG SULF 1GM/100ML (MAG RUN) 1 GM in IV 1 EA IV SCH (00:24)
[2021-05-27] MEDS: dexmedeTOMidine 200 MCG in IV 1 EA IV SCH ×5 (00:50→08:45)
[2021-05-27] MEDS: diazePAM 10MG/2ML SYRINGE (J3360 PER 5MG) IV PRN ×3 (01:27→07:15)
[2021-05-27] MEDS: PIPERACILLIN/TAZOBACTAM SOD 4.5 GM in D5W MINI-BAG PLUS 50 ML IV SCH ×4 (01:27→19:28)
[2021-05-27] MEDS: NS 1,000 ML IV SCH (05:59)
[2021-05-27] MEDS: THIAMINE INJection 500 MG in NS 100 ML IV SCH ×3 (05:59→22:17)
[2021-05-27] MEDS: MOM 30ML SUSPENSION UDC PO SCH (07:54)
[2021-05-27] MEDS: PANTOPRAZOLE 40MG TAB (PROTONIX) PO SCH (07:54)
[2021-05-27] MEDS: DOCUSATE SODIUM 100MG CAPSULE PO SCH ×2 (07:54→21:20)
[2021-05-27] MEDS: FOLIC ACID 1 MG TAB PO SCH (07:54)
[2021-05-27] MEDS: MULTIVITAMINS/MINERALS THERAP 1 TAB PO SCH (07:55)
[2021-05-27] MEDS: HEPARIN SOD (PORCINE) 5000UNITS/ML 1ML VIAL/SYRINGE SC SCH ×2 (08:45→21:20)
[2021-05-27] MEDS: NICOTINE 21MG/24HR 1 EA TRANSDERMAL TD SCH (08:46)
[2021-05-27 10:21] LABS: HEMOGLOBIN 13.2 g/dl (13.5-17.5); MEAN CORPUSCULAR HEMOGLOBIN 35.1 pg (27.0-33.0); MEAN CORPUSCULAR HGB CONC 33.8 g/dl (32.0-36.5); MEAN CORPUSCULAR VOLUME 103.7 fl (80.0-96.0); PLATELET COUNT, AUTOMATED 125 10^3/uL (150-450); RED BLOOD COUNT 3.76 10^6/uL (4.30-6.10); WHITE BLOOD COUNT 6.2 10^3/uL (4.0-10.0)
[2021-05-27] MEDS: LORazepam 2 MG/ML VIAL IV SCH ×3 (10:48→22:17)
[2021-05-27 10:54] LABS: ALBUMIN 2.6 GM/DL (3.2-5.2); ALT/SGPT 38 U/L (12-78); BILIRUBIN,TOTAL 1.1 MG/DL (0.2-1.0); BLOOD UREA NITROGEN 6 MG/DL (7-18); CALCIUM LEVEL 8.3 MG/DL (8.5-10.1); CARBON DIOXIDE LEVEL 26 MEQ/L (21-32); CHLORIDE LEVEL 108 MEQ/L (98-107); CREATININE FOR GFR 0.46 MG/DL (0.70-1.30); GLOMERULAR FILTRATION RATE > 60.0 (>56); GLUCOSE, FASTING 106 MG/DL (70-100); POTASSIUM SERUM 3.2 MEQ/L (3.5-5.1); SODIUM LEVEL 140 MEQ/L (136-145); TOTAL PROTEIN 6.5 GM/DL (6.4-8.2)
[2021-05-27] MEDS ORDERED: POTASSIUM CHLORIDE 10MEQ SR TABLET PO ONE (12:00)
[2021-05-27 13:58] LABS: MAGNESIUM LEVEL 1.9 MG/DL (1.8-2.4)
[2021-05-27] MEDS: OXAZEPAM 15 MG CAP PO SCH ×3 (14:02→23:37)
[2021-05-27] MEDS ORDERED: diazePAM 10MG/2ML SYRINGE (J3360 PER 5MG) IV PRN (20:30)
[2021-05-28] VITALS (16 sets, daily range): BP systolic 138–175; BP diastolic 67–98
[2021-05-28] MEDS: PIPERACILLIN/TAZOBACTAM SOD 4.5 GM in D5W MINI-BAG PLUS 50 ML IV SCH ×4 (02:35→20:29)
[2021-05-28 04:31] LABS: HEMATOCRIT 38.8 % (42.0-52.0); HEMOGLOBIN 13.2 g/dl (13.5-17.5); MEAN CORPUSCULAR HEMOGLOBIN 35.3 pg (27.0-33.0); MEAN CORPUSCULAR VOLUME 103.7 fl (80.0-96.0); PLATELET COUNT, AUTOMATED 157 10^3/uL (150-450); RED BLOOD COUNT 3.74 10^6/uL (4.30-6.10)
[2021-05-28 04:55] LABS: BLOOD UREA NITROGEN 6 MG/DL (7-18); CALCIUM LEVEL 8.5 MG/DL (8.5-10.1); CARBON DIOXIDE LEVEL 24 MEQ/L (21-32); CHLORIDE LEVEL 106 MEQ/L (98-107); CREATININE FOR GFR 0.57 MG/DL (0.70-1.30); GLOMERULAR FILTRATION RATE > 60.0 (>56); GLUCOSE, FASTING 94 MG/DL (70-100); MAGNESIUM LEVEL 1.8 MG/DL (1.8-2.4); POTASSIUM SERUM 2.8 MEQ/L (3.5-5.1); SODIUM LEVEL 138 MEQ/L (136-145)
[2021-05-28] MEDS ORDERED: POTASSIUM CHLORIDE 10MEQ SR TABLET PO ONE ×3 (05:10→14:00)
[2021-05-28] MEDS: OXAZEPAM 15 MG CAP PO SCH ×3 (05:26→17:04)
[2021-05-28] MEDS: LORazepam 2 MG/ML VIAL IV SCH ×4 (05:26→22:01)
[2021-05-28] MEDS: THIAMINE INJection 500 MG in NS 100 ML IV SCH ×3 (05:27→22:02)
[2021-05-28] MEDS ORDERED: POTASSIUM CHLORIDE 10% LIQ 20 MEQ/15 ML UDC PO ONE ×2 (08:00→16:30)
[2021-05-28] MEDS: NICOTINE 21MG/24HR 1 EA TRANSDERMAL TD SCH (08:13)
[2021-05-28] MEDS: MOM 30ML SUSPENSION UDC PO SCH (08:13)
[2021-05-28] MEDS: ACETAMINOPHEN TAB 650MG DOSE (2X325MG) PO PRN (08:14)
[2021-05-28] MEDS: HEPARIN SOD (PORCINE) 5000UNITS/ML 1ML VIAL/SYRINGE SC SCH ×2 (08:14→22:02)
[2021-05-28] MEDS: DOCUSATE SODIUM 100MG CAPSULE PO SCH ×2 (08:14→20:28)
[2021-05-28] MEDS: FOLIC ACID 1 MG TAB PO SCH (08:14)
[2021-05-28] MEDS: MULTIVITAMINS/MINERALS THERAP 1 TAB PO SCH (08:14)
[2021-05-28] MEDS: PANTOPRAZOLE 40MG TAB (PROTONIX) PO SCH (08:15)
[2021-05-28] MEDS ORDERED: LORazepam 2 MG/ML VIAL As Ordered ONE ×4 (09:25→22:23)
[2021-05-28] MEDS: LORazepam 2 MG/ML VIAL IV PRN ×2 (13:00→20:28)
[2021-05-28] MEDS ORDERED: LORazepam 2 MG/ML VIAL IV STA ×2 (14:14→23:00)
[2021-05-28 15:14] LABS: BLOOD UREA NITROGEN 8 MG/DL (7-18); CARBON DIOXIDE LEVEL 27 MEQ/L (21-32); CHLORIDE LEVEL 106 MEQ/L (98-107); GLOMERULAR FILTRATION RATE > 60.0 (>56); GLUCOSE, FASTING 146 MG/DL (70-100); MAGNESIUM LEVEL 2.2 MG/DL (1.8-2.4); POTASSIUM SERUM 3.4 MEQ/L (3.5-5.1); SODIUM LEVEL 140 MEQ/L (136-145)
[2021-05-28] MEDS ORDERED: LORazepam 2 MG/ML VIAL IV PRN (22:25)
[2021-05-28] MEDS: dexmedeTOMidine 200 MCG in IV 1 EA IV SCH (23:01)
[2021-05-29] VITALS (29 sets, daily range): BP systolic 79–167; BP diastolic 53–103
[2021-05-29] MEDS ORDERED: PROPOFOL 1,000 MG/100 ML VIAL As Ordered ONE (00:07)
[2021-05-29] MEDS ORDERED: ETOMIDATE INJ 20MG/10ML VIAL As Ordered ONE ×2 (00:07→00:08)
[2021-05-29] MEDS ORDERED: ROCURONIUM BROMIDE 50 MG/5 ML VIAL As Ordered ONE (00:07)
[2021-05-29] MEDS ORDERED: ETOMIDATE INJ 20MG/10ML VIAL IV ONE (00:10)
[2021-05-29] MEDS ORDERED: ROCURONIUM BROMIDE 50 MG/5 ML VIAL IV ONE (00:10)
[2021-05-29] MEDS ORDERED: propofoL 1,000 MG in IV 1 EA IV SCH (00:10)
[2021-05-29] MEDS ORDERED: ACETAMINOPHEN 325 MG/10.15 ML UDC NG PRN (00:40)
[2021-05-29] MEDS ORDERED: ACETAMINOPHEN 325 MG/10.15 ML UDC GT PRN (00:40)
[2021-05-29] MEDS: ACETAMINOPHEN 325 MG/10.15 ML UDC NG PRN (00:54)
[2021-05-29] MEDS: diazePAM 5MG TABLET NG SCH ×5 (01:48→23:06)
[2021-05-29] MEDS: dexmedeTOMidine 200 MCG in IV 1 EA IV SCH ×8 (01:57→22:33)
[2021-05-29 02:01] LABS: VENOUS BASE EXCESS -2.3 (-2.0-2.0); VENOUS HCO3 22.4 MEQ/L (23.0-27.0); VENOUS O2 SATURATION 99.1 % (60.0-80.0); VENOUS PARTIAL PRESSURE CO2 38.7 mmHg (38.0-50.0); VENOUS PARTIAL PRESSURE O2 150.5 mmHg (30.0-50.0); VENOUS PH 7.381 UNITS (7.330-7.430); VENOUS STANDARD HCO3 22.6 MEQ/L; VENOUS TOTAL CO2 23.6 MEQ/L (24.0-28.0)
[2021-05-29] MEDS ORDERED: LR 1,000 ML IV ONE (02:05)
[2021-05-29 02:24] LABS: GLOMERULAR FILTRATION RATE > 60.0 (>56)
[2021-05-29] MEDS ORDERED: REFRIGERATOR IV KEYS XX PRN (02:45)
[2021-05-29] MEDS: MIDAZOLAM INJ 2MG/2ML VIAL (J2250 PER 1MG) IV PRN ×8 (02:49→22:33)
[2021-05-29] MEDS: MIDAZOLAM HCL 100 MG in D5W 80 ML IV SCH ×3 (03:25→18:18)
[2021-05-29 06:12] LABS: HEMATOCRIT 35.9 % (42.0-52.0); MEAN CORPUSCULAR HEMOGLOBIN 34.8 pg (27.0-33.0); MEAN CORPUSCULAR HGB CONC 33.4 g/dl (32.0-36.5); MEAN CORPUSCULAR VOLUME 104.1 fl (80.0-96.0); PLATELET COUNT, AUTOMATED 206 10^3/uL (150-450); RED BLOOD COUNT 3.45 10^6/uL (4.30-6.10); WHITE BLOOD COUNT 8.6 10^3/uL (4.0-10.0)
[2021-05-29 06:39] LABS: BLOOD UREA NITROGEN 9 MG/DL (7-18); CALCIUM LEVEL 8.5 MG/DL (8.5-10.1); CARBON DIOXIDE LEVEL 25 MEQ/L (21-32); CHLORIDE LEVEL 109 MEQ/L (98-107); GLOMERULAR FILTRATION RATE > 60.0 (>56); GLUCOSE, FASTING 112 MG/DL (70-100); POTASSIUM SERUM 3.5 MEQ/L (3.5-5.1); SODIUM LEVEL 141 MEQ/L (136-145)
[2021-05-29 06:40] LABS: ALBUMIN 2.5 GM/DL (3.2-5.2); BILIRUBIN,DIRECT 0.4 MG/DL (0.0-0.2); BILIRUBIN,TOTAL 1.1 MG/DL (0.2-1.0); TOTAL PROTEIN 6.1 GM/DL (6.4-8.2)
[2021-05-29] MEDS ORDERED: MIDAZOLAM INJ 2MG/2ML VIAL (J2250 PER 1MG) IV STA (08:11)
[2021-05-29] MEDS: ENOXAPARIN 40MG/0.4ML SYRINGE (J1650 PER 10MG) SC SCH (09:04)
[2021-05-29] MEDS: PANTOPRAZOLE 40MG VIAL (C9113 PER 1) IV SCH (09:04)
[2021-05-29] MEDS: NICOTINE 21MG/24HR 1 EA TRANSDERMAL TD SCH (09:05)
[2021-05-29] MEDS: FOLIC ACID 1 MG TAB NG SCH (09:05)
[2021-05-29] MEDS: MULTIVITAMINS/MINERALS THERAP 1 TAB NG SCH (09:06)
[2021-05-29] MEDS ORDERED: MIDAZOLAM HCL 100 MG in D5W 80 ML IV SCH (10:31)
[2021-05-30] VITALS (25 sets, daily range): BP systolic 103–154; BP diastolic 70–102
[2021-05-30] MEDS: dexmedeTOMidine 200 MCG in IV 1 EA IV SCH ×10 (02:09→23:08)
[2021-05-30] MEDS: MIDAZOLAM HCL 100 MG in D5W 80 ML IV SCH ×3 (02:53→18:59)
[2021-05-30] MEDS: MIDAZOLAM INJ 2MG/2ML VIAL (J2250 PER 1MG) IV PRN ×7 (02:53→23:08)
[2021-05-30] MEDS: diazePAM 5MG TABLET NG SCH (05:52)
[2021-05-30] MEDS: ACETAMINOPHEN 325 MG/10.15 ML UDC NG PRN ×2 (05:52→19:30)
[2021-05-30 06:28] LABS: HEMATOCRIT 39.5 % (42.0-52.0); HEMOGLOBIN 13.3 g/dl (13.5-17.5); MEAN CORPUSCULAR HEMOGLOBIN 34.8 pg (27.0-33.0); MEAN CORPUSCULAR HGB CONC 33.7 g/dl (32.0-36.5); MEAN CORPUSCULAR VOLUME 103.4 fl (80.0-96.0); PLATELET COUNT, AUTOMATED 262 10^3/uL (150-450); RED BLOOD COUNT 3.82 10^6/uL (4.30-6.10); WHITE BLOOD COUNT 7.7 10^3/uL (4.0-10.0)
[2021-05-30 06:48] LABS: BLOOD UREA NITROGEN 8 MG/DL (7-18); CALCIUM LEVEL 8.4 MG/DL (8.5-10.1); CARBON DIOXIDE LEVEL 24 MEQ/L (21-32); CHLORIDE LEVEL 108 MEQ/L (98-107); CREATININE FOR GFR 0.47 MG/DL (0.70-1.30); GLOMERULAR FILTRATION RATE > 60.0 (>56); GLUCOSE, FASTING 122 MG/DL (70-100); MAGNESIUM LEVEL 1.9 MG/DL (1.8-2.4); POTASSIUM SERUM 3.7 MEQ/L (3.5-5.1); SODIUM LEVEL 140 MEQ/L (136-145)
[2021-05-30] MEDS: MULTIVITAMINS/MINERALS THERAP 1 TAB NG SCH (08:20)
[2021-05-30] MEDS: FOLIC ACID 1 MG TAB NG SCH (08:20)
[2021-05-30] MEDS: ENOXAPARIN 40MG/0.4ML SYRINGE (J1650 PER 10MG) SC SCH (08:20)
[2021-05-30] MEDS: PANTOPRAZOLE 40MG VIAL (C9113 PER 1) IV SCH (08:20)
[2021-05-30] MEDS: NICOTINE 21MG/24HR 1 EA TRANSDERMAL TD SCH (08:21)
[2021-05-30 10:00] LABS: ABG BASE EXCESS 0.5 (-2.0-2.0); ABG HCO3 24.3 MEQ/L (22.0-26.0); ABG O2 SATURATION 98.5 % (95.0-99.0); ABG PARTIAL PRESSURE CO2 36.5 mmHg (35.0-45.0); ABG PARTIAL PRESSURE O2 111.3 mmHg (75.0-100.0); ABG STANDARD HCO3 24.9 MEQ/L (22.0-26.0); ABG TOTAL CO2 25.4 MEQ/L (22.0-29.0); ABG pH (ARTERIAL) 7.441 UNITS (7.350-7.450)
[2021-05-30] MEDS: OXAZEPAM 15 MG CAP PO SCH ×3 (12:06→23:27)
[2021-05-30] MEDS ORDERED: OXAZEPAM 15 MG CAP PO SCH (14:00)
[2021-05-31] VITALS (20 sets, daily range): BP systolic 98–148; BP diastolic 72–98
[2021-05-31] MEDS: dexmedeTOMidine 200 MCG in IV 1 EA IV SCH ×13 (01:21→23:55)
[2021-05-31] MEDS: MIDAZOLAM INJ 2MG/2ML VIAL (J2250 PER 1MG) IV PRN ×11 (03:04→22:44)
[2021-05-31] MEDS: METOCLOPRAMIDE INJ 10MG/2ML VIAL (J2765 PER 1) IV PRN (03:04)
[2021-05-31] MEDS: MIDAZOLAM HCL 100 MG in D5W 80 ML IV SCH ×3 (04:32→18:53)
[2021-05-31 05:47] LABS: ABG BASE EXCESS 0.5 (-2.0-2.0); ABG HCO3 24.7 MEQ/L (22.0-26.0); ABG O2 SATURATION 97.7 % (95.0-99.0); ABG PARTIAL PRESSURE O2 100.4 mmHg (75.0-100.0); ABG TOTAL CO2 25.8 MEQ/L (22.0-29.0)
[2021-05-31] MEDS: OXAZEPAM 15 MG CAP PO SCH ×3 (06:02→17:25)
[2021-05-31] MEDS: PANTOPRAZOLE 40MG VIAL (C9113 PER 1) IV SCH (08:19)
[2021-05-31] MEDS: FOLIC ACID 1 MG TAB NG SCH (08:19)
[2021-05-31] MEDS: MULTIVITAMINS/MINERALS THERAP 1 TAB NG SCH (08:19)
[2021-05-31] MEDS: NICOTINE 21MG/24HR 1 EA TRANSDERMAL TD SCH (08:20)
[2021-05-31] MEDS: ENOXAPARIN 40MG/0.4ML SYRINGE (J1650 PER 10MG) SC SCH (08:20)
[2021-05-31 09:55] LABS: HEMATOCRIT 40.4 % (42.0-52.0); HEMOGLOBIN 13.6 g/dl (13.5-17.5); MEAN CORPUSCULAR HGB CONC 33.7 g/dl (32.0-36.5); MEAN CORPUSCULAR VOLUME 103.9 fl (80.0-96.0); PLATELET COUNT, AUTOMATED 330 10^3/uL (150-450); RED BLOOD COUNT 3.89 10^6/uL (4.30-6.10); WHITE BLOOD COUNT 7.3 10^3/uL (4.0-10.0)
[2021-05-31 10:59] LABS: ALBUMIN 2.2 GM/DL (3.2-5.2); ALT/SGPT 22 U/L (12-78); BILIRUBIN,TOTAL 0.5 MG/DL (0.2-1.0); BLOOD UREA NITROGEN 7 MG/DL (7-18); CALCIUM LEVEL 8.3 MG/DL (8.5-10.1); CARBON DIOXIDE LEVEL 23 MEQ/L (21-32); CHLORIDE LEVEL 110 MEQ/L (98-107); CHOLESTEROL LEVEL 103 MG/DL (< 200); CPK CREATINE PHOSPHOKINASE 147 U/L (39-308); CREATININE FOR GFR 0.46 MG/DL (0.70-1.30); GLOMERULAR FILTRATION RATE > 60.0 (>56); GLUCOSE, FASTING 114 MG/DL (70-100); LDH LACTATE DEHYDROGENASE 356 U/L (87-241); PHOSPHORUS LEVEL 4.4 MG/DL (2.5-4.9); POTASSIUM SERUM 4.5 MEQ/L (3.5-5.1); SODIUM LEVEL 141 MEQ/L (136-145); TOTAL PROTEIN 6.1 GM/DL (6.4-8.2); TRIGLYCERIDES LEVEL 129 MG/DL (<150)
[2021-05-31] MEDS: ACETAMINOPHEN 325 MG/10.15 ML UDC NG PRN ×2 (14:17→21:58)
[2021-05-31] MEDS: diazePAM 10MG/2ML SYRINGE (J3360 PER 5MG) IV PRN (21:20)
[2021-05-31] MEDS: fentaNYL 100 MCG/2 ML INJECTION IV PRN (23:06)
[2021-06-01] VITALS (23 sets, daily range): BP systolic 100–138; BP diastolic 69–93
[2021-06-01] MEDS: dexmedeTOMidine 200 MCG in IV 1 EA IV SCH ×10 (02:06→22:59)
[2021-06-01] MEDS: fentaNYL 100 MCG/2 ML INJECTION IV PRN ×4 (02:41→20:10)
[2021-06-01] MEDS: diazePAM 10MG/2ML SYRINGE (J3360 PER 5MG) IV PRN ×2 (03:15→21:36)
[2021-06-01] MEDS: MIDAZOLAM HCL 100 MG in D5W 80 ML IV SCH ×3 (03:21→18:35)
[2021-06-01] MEDS: MIDAZOLAM INJ 2MG/2ML VIAL (J2250 PER 1MG) IV PRN ×9 (04:06→22:59)
[2021-06-01 05:42] LABS: HEMATOCRIT 39.9 % (42.0-52.0); HEMOGLOBIN 13.3 g/dl (13.5-17.5); MEAN CORPUSCULAR HEMOGLOBIN 34.3 pg (27.0-33.0); MEAN CORPUSCULAR HGB CONC 33.3 g/dl (32.0-36.5); MEAN CORPUSCULAR VOLUME 102.8 fl (80.0-96.0); PLATELET COUNT, AUTOMATED 363 10^3/uL (150-450); RED BLOOD COUNT 3.88 10^6/uL (4.30-6.10); WHITE BLOOD COUNT 8.5 10^3/uL (4.0-10.0)
[2021-06-01 05:55] LABS: ABG BASE EXCESS -0.5 (-2.0-2.0); ABG HCO3 23.6 MEQ/L (22.0-26.0); ABG O2 SATURATION 97.9 % (95.0-99.0); ABG PARTIAL PRESSURE CO2 37.2 mmHg (35.0-45.0); ABG PARTIAL PRESSURE O2 108.7 mmHg (75.0-100.0); ABG STANDARD HCO3 24.1 MEQ/L (22.0-26.0); ABG TOTAL CO2 24.8 MEQ/L (22.0-29.0); ABG pH (ARTERIAL) 7.421 UNITS (7.350-7.450)
[2021-06-01 06:25] LABS: ALBUMIN 2.4 GM/DL (3.2-5.2); ALT/SGPT 20 U/L (12-78); BILIRUBIN,TOTAL 0.4 MG/DL (0.2-1.0); BLOOD UREA NITROGEN 9 MG/DL (7-18); CALCIUM LEVEL 8.8 MG/DL (8.5-10.1); CARBON DIOXIDE LEVEL 27 MEQ/L (21-32); CHLORIDE LEVEL 108 MEQ/L (98-107); CHOLESTEROL LEVEL 113 MG/DL (< 200); CPK CREATINE PHOSPHOKINASE 21 U/L (39-308); CREATININE FOR GFR 0.51 MG/DL (0.70-1.30); GLOMERULAR FILTRATION RATE > 60.0 (>56); GLUCOSE, FASTING 114 MG/DL (70-100); LDH LACTATE DEHYDROGENASE 175 U/L (87-241); MAGNESIUM LEVEL 2.1 MG/DL (1.8-2.4); PHOSPHORUS LEVEL 4.7 MG/DL (2.5-4.9); SODIUM LEVEL 140 MEQ/L (136-145); TOTAL PROTEIN 6.3 GM/DL (6.4-8.2); TRIGLYCERIDES LEVEL 149 MG/DL (<150)
[2021-06-01] MEDS: FOLIC ACID 1 MG TAB NG SCH (09:26)
[2021-06-01] MEDS: NICOTINE 21MG/24HR 1 EA TRANSDERMAL TD SCH (09:26)
[2021-06-01] MEDS: ENOXAPARIN 40MG/0.4ML SYRINGE (J1650 PER 10MG) SC SCH (09:26)
[2021-06-01] MEDS: MULTIVITAMINS/MINERALS THERAP 1 TAB NG SCH (09:26)
[2021-06-01] MEDS: PANTOPRAZOLE 40MG VIAL (C9113 PER 1) IV SCH (09:26)
[2021-06-01] MEDS: CHLORHEXIDINE GLUCONATE 0.12 % 15ML UDC (PERIDEX ORAL RINSE) MT SCH (20:10)
[2021-06-02] VITALS (23 sets, daily range): BP systolic 98–142; BP diastolic 63–94
[2021-06-02] MEDS: dexmedeTOMidine 200 MCG in IV 1 EA IV SCH ×13 (00:37→23:59)
[2021-06-02] MEDS: MIDAZOLAM INJ 2MG/2ML VIAL (J2250 PER 1MG) IV PRN ×14 (02:29→22:40)
[2021-06-02] MEDS: MIDAZOLAM HCL 100 MG in D5W 80 ML IV SCH ×4 (02:49→19:01)
[2021-06-02] MEDS: diazePAM 10MG/2ML SYRINGE (J3360 PER 5MG) IV PRN ×3 (03:17→18:05)
[2021-06-02] MEDS: METOCLOPRAMIDE INJ 10MG/2ML VIAL (J2765 PER 1) IV PRN (04:30)
[2021-06-02] MEDS: fentaNYL 100 MCG/2 ML INJECTION IV PRN ×6 (04:31→22:41)
[2021-06-02 05:22] LABS: HEMATOCRIT 37.5 % (42.0-52.0); HEMOGLOBIN 12.4 g/dl (13.5-17.5); MEAN CORPUSCULAR HEMOGLOBIN 34.5 pg (27.0-33.0); MEAN CORPUSCULAR HGB CONC 33.1 g/dl (32.0-36.5); MEAN CORPUSCULAR VOLUME 104.5 fl (80.0-96.0); PLATELET COUNT, AUTOMATED 359 10^3/uL (150-450); RED BLOOD COUNT 3.59 10^6/uL (4.30-6.10); WHITE BLOOD COUNT 9.9 10^3/uL (4.0-10.0)
[2021-06-02 05:46] LABS: ALBUMIN 2.3 GM/DL (3.2-5.2); ALT/SGPT 20 U/L (12-78); BILIRUBIN,TOTAL 0.5 MG/DL (0.2-1.0); BLOOD UREA NITROGEN 8 MG/DL (7-18); CALCIUM LEVEL 8.5 MG/DL (8.5-10.1); CARBON DIOXIDE LEVEL 27 MEQ/L (21-32); CHLORIDE LEVEL 108 MEQ/L (98-107); CHOLESTEROL LEVEL 100 MG/DL (< 200); CPK CREATINE PHOSPHOKINASE 19 U/L (39-308); CREATININE FOR GFR 0.45 MG/DL (0.70-1.30); GLOMERULAR FILTRATION RATE > 60.0 (>56); GLUCOSE, FASTING 111 MG/DL (70-100); LDH LACTATE DEHYDROGENASE 172 U/L (87-241); MAGNESIUM LEVEL 2.1 MG/DL (1.8-2.4); PHOSPHORUS LEVEL 4.5 MG/DL (2.5-4.9); POTASSIUM SERUM 3.9 MEQ/L (3.5-5.1); SODIUM LEVEL 142 MEQ/L (136-145); TOTAL PROTEIN 5.9 GM/DL (6.4-8.2); TRIGLYCERIDES LEVEL 148 MG/DL (<150)
[2021-06-02 06:19] LABS: ABG HCO3 25.3 MEQ/L (22.0-26.0); ABG O2 SATURATION 98.9 % (95.0-99.0); ABG PARTIAL PRESSURE CO2 39.4 mmHg (35.0-45.0); ABG PARTIAL PRESSURE O2 146.1 mmHg (75.0-100.0); ABG STANDARD HCO3 25.4 MEQ/L (22.0-26.0); ABG TOTAL CO2 26.5 MEQ/L (22.0-29.0); ABG pH (ARTERIAL) 7.426 UNITS (7.350-7.450)
[2021-06-02] MEDS: ENOXAPARIN 40MG/0.4ML SYRINGE (J1650 PER 10MG) SC SCH (09:32)
[2021-06-02] MEDS: NICOTINE 21MG/24HR 1 EA TRANSDERMAL TD SCH (09:33)
[2021-06-02] MEDS: CHLORHEXIDINE GLUCONATE 0.12 % 15ML UDC (PERIDEX ORAL RINSE) MT SCH ×2 (09:33→20:07)
[2021-06-02] MEDS: FOLIC ACID 1 MG TAB NG SCH (09:33)
[2021-06-02] MEDS: PANTOPRAZOLE 40MG VIAL (C9113 PER 1) IV SCH (09:33)
[2021-06-02] MEDS: MULTIVITAMINS/MINERALS THERAP 1 TAB NG SCH (09:33)
[2021-06-02 11:19] LABS: VENOUS BASE EXCESS 2.1 (-2.0-2.0); VENOUS HCO3 26.1 MEQ/L (23.0-27.0); VENOUS O2 SATURATION 99.6 % (60.0-80.0); VENOUS PARTIAL PRESSURE CO2 38.6 mmHg (38.0-50.0); VENOUS PARTIAL PRESSURE O2 225.6 mmHg (30.0-50.0); VENOUS PH 7.448 UNITS (7.330-7.430); VENOUS STANDARD HCO3 26.4 MEQ/L; VENOUS TOTAL CO2 27.3 MEQ/L (24.0-28.0)
[2021-06-02] MEDS: IPRATROPIUM 0.5MG/ALBUTEROL 2.5MG INH SOL UD 3ML (DUONEB) NEB SCH ×2 (15:38→20:00)
[2021-06-02] MEDS: ACETAMINOPHEN 325 MG/10.15 ML UDC NG PRN (19:51)
[2021-06-03] VITALS (41 sets, daily range): BP systolic 89–140; BP diastolic 58–92
[2021-06-03] MEDS: IPRATROPIUM 0.5MG/ALBUTEROL 2.5MG INH SOL UD 3ML (DUONEB) NEB SCH ×6 (00:28→19:50)
[2021-06-03] MEDS: MIDAZOLAM INJ 2MG/2ML VIAL (J2250 PER 1MG) IV PRN ×3 (00:58→07:19)
[2021-06-03] MEDS: fentaNYL 100 MCG/2 ML INJECTION IV PRN ×5 (00:59→16:37)
[2021-06-03] MEDS: dexmedeTOMidine 200 MCG in IV 1 EA IV SCH ×8 (01:40→23:06)
[2021-06-03] MEDS: MIDAZOLAM HCL 100 MG in D5W 80 ML IV SCH ×5 (01:51→23:40)
[2021-06-03] MEDS: diazePAM 10MG/2ML SYRINGE (J3360 PER 5MG) IV PRN ×2 (03:59→17:36)
[2021-06-03] MEDS ORDERED: HALOPERIDOL 5MG/ML VIAL (J1630 PER 1) As Ordered ONE (04:29)
[2021-06-03] MEDS ORDERED: HALOPERIDOL 5MG/ML VIAL (J1630 PER 1) IV PRN (04:30)
[2021-06-03 06:04] LABS: ALBUMIN 2.3 GM/DL (3.2-5.2); ALT/SGPT 19 U/L (12-78); BILIRUBIN,TOTAL 0.4 MG/DL (0.2-1.0); BLOOD UREA NITROGEN 7 MG/DL (7-18); CALCIUM LEVEL 8.5 MG/DL (8.5-10.1); CARBON DIOXIDE LEVEL 27 MEQ/L (21-32); CHLORIDE LEVEL 108 MEQ/L (98-107); CHOLESTEROL LEVEL 100 MG/DL (< 200); CPK CREATINE PHOSPHOKINASE 19 U/L (39-308); CREATININE FOR GFR 0.53 MG/DL (0.70-1.30); GLOMERULAR FILTRATION RATE > 60.0 (>56); GLUCOSE, FASTING 132 MG/DL (70-100); LDH LACTATE DEHYDROGENASE 167 U/L (87-241); MAGNESIUM LEVEL 2.1 MG/DL (1.8-2.4); PHOSPHORUS LEVEL 4.9 MG/DL (2.5-4.9); POTASSIUM SERUM 3.7 MEQ/L (3.5-5.1); SODIUM LEVEL 143 MEQ/L (136-145); TRIGLYCERIDES LEVEL 123 MG/DL (<150)
[2021-06-03 06:07] LABS: ABG BASE EXCESS 2.4 (-2.0-2.0); ABG HCO3 26.8 MEQ/L (22.0-26.0); ABG O2 SATURATION 98.5 % (95.0-99.0); ABG PARTIAL PRESSURE CO2 40.9 mmHg (35.0-45.0); ABG PARTIAL PRESSURE O2 114.8 mmHg (75.0-100.0); ABG STANDARD HCO3 26.6 MEQ/L (22.0-26.0); ABG TOTAL CO2 28.1 MEQ/L (22.0-29.0); ABG pH (ARTERIAL) 7.435 UNITS (7.350-7.450)
[2021-06-03] MEDS: CHLORHEXIDINE GLUCONATE 0.12 % 15ML UDC (PERIDEX ORAL RINSE) MT SCH ×2 (08:19→20:34)
[2021-06-03] MEDS: PANTOPRAZOLE 40MG VIAL (C9113 PER 1) IV SCH (08:19)
[2021-06-03] MEDS: NICOTINE 21MG/24HR 1 EA TRANSDERMAL TD SCH (08:19)
[2021-06-03] MEDS: ENOXAPARIN 40MG/0.4ML SYRINGE (J1650 PER 10MG) SC SCH (08:20)
[2021-06-03] MEDS: FOLIC ACID 1 MG TAB NG SCH (08:20)
[2021-06-03] MEDS: MULTIVITAMINS/MINERALS THERAP 1 TAB NG SCH (08:20)
[2021-06-03] MEDS ORDERED: PROPOFOL 1,000 MG/100 ML VIAL As Ordered ONE (09:56)
[2021-06-03] MEDS: propofoL 1,000 MG in IV 1 EA IV SCH ×5 (10:12→23:22)
[2021-06-03] MEDS: ACETAMINOPHEN 325 MG/10.15 ML UDC NG PRN ×2 (11:41→17:36)
[2021-06-03] MEDS ORDERED: SODIUM CHLORIDE 0.9% 1000ML IV ONE (12:00)
[2021-06-03 16:29] LABS: ABG BASE EXCESS 0.1 (-2.0-2.0); ABG FIO2 25; ABG HCO3 25.8 MEQ/L (22.0-26.0); ABG MODE OF VENT SIMV+PS; ABG O2 SATURATION 93.8 % (95.0-99.0); ABG PARTIAL PRESSURE CO2 46.1 mmHg (35.0-45.0); ABG PARTIAL PRESSURE O2 69.9 mmHg (75.0-100.0); ABG PATIENT RESP RATE 14 /MIN; ABG PEEP 5; ABG STANDARD HCO3 24.5 MEQ/L (22.0-26.0); ABG TIDAL VOLUME 440 cc; ABG TOTAL CO2 27.2 MEQ/L (22.0-29.0); ABG pH (ARTERIAL) 7.366 UNITS (7.350-7.450)
[2021-06-03] MEDS ORDERED: METOPROLOL 5 MG/5 ML VIAL IV STA ×2 (18:36→18:55)
[2021-06-04] VITALS (43 sets, daily range): BP systolic 81–152; BP diastolic 51–94
[2021-06-04] MEDS: IPRATROPIUM 0.5MG/ALBUTEROL 2.5MG INH SOL UD 3ML (DUONEB) NEB SCH ×6 (00:25→19:42)
[2021-06-04] MEDS: dexmedeTOMidine 200 MCG in IV 1 EA IV SCH ×8 (02:44→22:59)
[2021-06-04] MEDS: propofoL 1,000 MG in IV 1 EA IV SCH ×2 (03:48→08:08)
[2021-06-04 04:47] LABS: ALBUMIN 2.4 GM/DL (3.2-5.2); ALT/SGPT 18 U/L (12-78); BILIRUBIN,TOTAL 0.3 MG/DL (0.2-1.0); BLOOD UREA NITROGEN 10 MG/DL (7-18); CARBON DIOXIDE LEVEL 30 MEQ/L (21-32); CHLORIDE LEVEL 107 MEQ/L (98-107); CHOLESTEROL LEVEL 100 MG/DL (< 200); CPK CREATINE PHOSPHOKINASE 18 U/L (39-308); CREATININE FOR GFR 0.55 MG/DL (0.70-1.30); GLOMERULAR FILTRATION RATE > 60.0 (>56); GLUCOSE, FASTING 135 MG/DL (70-100); LDH LACTATE DEHYDROGENASE 216 U/L (87-241); PHOSPHORUS LEVEL 5.4 MG/DL (2.5-4.9); POTASSIUM SERUM 4.4 MEQ/L (3.5-5.1); SODIUM LEVEL 142 MEQ/L (136-145); TOTAL PROTEIN 6.2 GM/DL (6.4-8.2); TRIGLYCERIDES LEVEL 114 MG/DL (<150)
[2021-06-04] MEDS: MIDAZOLAM HCL 100 MG in D5W 80 ML IV SCH (05:29)
[2021-06-04 06:12] LABS: ABG BASE EXCESS -0.3 (-2.0-2.0); ABG HCO3 25.6 MEQ/L (22.0-26.0); ABG O2 SATURATION 92.2 % (95.0-99.0); ABG PARTIAL PRESSURE CO2 47.3 mmHg (35.0-45.0); ABG PARTIAL PRESSURE O2 64.3 mmHg (75.0-100.0); ABG STANDARD HCO3 24.1 MEQ/L (22.0-26.0); ABG TOTAL CO2 27.1 MEQ/L (22.0-29.0); ABG pH (ARTERIAL) 7.352 UNITS (7.350-7.450)
[2021-06-04] MEDS: MULTIVITAMINS/MINERALS THERAP 1 TAB NG SCH (09:11)
[2021-06-04] MEDS: PANTOPRAZOLE 40MG VIAL (C9113 PER 1) IV SCH (09:11)
[2021-06-04] MEDS: CHLORHEXIDINE GLUCONATE 0.12 % 15ML UDC (PERIDEX ORAL RINSE) MT SCH ×2 (09:11→21:07)
[2021-06-04] MEDS: ENOXAPARIN 40MG/0.4ML SYRINGE (J1650 PER 10MG) SC SCH (09:11)
[2021-06-04] MEDS: FOLIC ACID 1 MG TAB NG SCH (09:11)
[2021-06-04] MEDS: NICOTINE 21MG/24HR 1 EA TRANSDERMAL TD SCH (09:12)
[2021-06-04] MEDS ORDERED: MOM 30ML SUSPENSION UDC NG PRN (09:30)
[2021-06-04] MEDS ORDERED: MIDAZOLAM HCL 250 MG in D5W 200 ML IV SCH (10:00)
[2021-06-04] MEDS: METOPROLOL TART 25 MG TABLET GT SCH ×2 (11:00→21:00)
[2021-06-04] MEDS: MIDAZOLAM INJ 2MG/2ML VIAL (J2250 PER 1MG) IV PRN ×8 (12:42→22:47)
[2021-06-04] MEDS: MIDAZOLAM HCL 250 MG in D5W 200 ML IV SCH (13:00)
[2021-06-04] MEDS: fentaNYL 100 MCG/2 ML INJECTION IV PRN ×4 (15:00→22:57)
[2021-06-04] MEDS: DOCUSATE SOD LIQ 100MG/10ML UDC GT SCH (21:07)
[2021-06-04] MEDS: diazePAM 10MG/2ML SYRINGE (J3360 PER 5MG) IV PRN (22:07)
[2021-06-05] VITALS (24 sets, daily range): BP systolic 117–150; BP diastolic 72–95
[2021-06-05] MEDS: IPRATROPIUM 0.5MG/ALBUTEROL 2.5MG INH SOL UD 3ML (DUONEB) NEB SCH ×6 (00:30→19:40)
[2021-06-05] MEDS: dexmedeTOMidine 200 MCG in IV 1 EA IV SCH ×12 (00:48→23:20)
[2021-06-05] MEDS: MIDAZOLAM INJ 2MG/2ML VIAL (J2250 PER 1MG) IV PRN ×8 (00:48→21:21)
[2021-06-05] MEDS: fentaNYL 100 MCG/2 ML INJECTION IV PRN ×4 (00:49→04:14)
[2021-06-05 05:57] LABS: ABG BASE EXCESS 0.3 (-2.0-2.0); ABG HCO3 24.3 MEQ/L (22.0-26.0); ABG O2 SATURATION 95.3 % (95.0-99.0); ABG PARTIAL PRESSURE CO2 36.7 mmHg (35.0-45.0); ABG PARTIAL PRESSURE O2 78.5 mmHg (75.0-100.0); ABG STANDARD HCO3 24.8 MEQ/L (22.0-26.0); ABG TOTAL CO2 25.4 MEQ/L (22.0-29.0); ABG pH (ARTERIAL) 7.438 UNITS (7.350-7.450)
[2021-06-05] MEDS: NICOTINE 21MG/24HR 1 EA TRANSDERMAL TD SCH (08:16)
[2021-06-05] MEDS: METOPROLOL TART 25 MG TABLET GT SCH ×2 (08:17→19:53)
[2021-06-05] MEDS: FOLIC ACID 1 MG TAB NG SCH (08:17)
[2021-06-05] MEDS: DOCUSATE SOD LIQ 100MG/10ML UDC GT SCH ×3 (08:17→22:18)
[2021-06-05] MEDS: ENOXAPARIN 40MG/0.4ML SYRINGE (J1650 PER 10MG) SC SCH (08:17)
[2021-06-05] MEDS: PANTOPRAZOLE 40MG VIAL (C9113 PER 1) IV SCH (08:17)
[2021-06-05] MEDS: MULTIVITAMINS/MINERALS THERAP 1 TAB NG SCH (08:18)
[2021-06-05] MEDS: CHLORHEXIDINE GLUCONATE 0.12 % 15ML UDC (PERIDEX ORAL RINSE) MT SCH ×2 (08:18→19:53)
[2021-06-05 09:25] LABS: ALBUMIN 2.5 GM/DL (3.2-5.2); ALT/SGPT 19 U/L (12-78); BILIRUBIN,TOTAL 0.4 MG/DL (0.2-1.0); BLOOD UREA NITROGEN 8 MG/DL (7-18); CALCIUM LEVEL 8.8 MG/DL (8.5-10.1); CARBON DIOXIDE LEVEL 29 MEQ/L (21-32); CHLORIDE LEVEL 106 MEQ/L (98-107); CHOLESTEROL LEVEL 105 MG/DL (< 200); CPK CREATINE PHOSPHOKINASE 37 U/L (39-308); CREATININE FOR GFR 0.58 MG/DL (0.70-1.30); GLOMERULAR FILTRATION RATE > 60.0 (>56); GLUCOSE, FASTING 126 MG/DL (70-100); LDH LACTATE DEHYDROGENASE 190 U/L (87-241); POTASSIUM SERUM 4.3 MEQ/L (3.5-5.1); SODIUM LEVEL 143 MEQ/L (136-145); TOTAL PROTEIN 6.3 GM/DL (6.4-8.2); TRIGLYCERIDES LEVEL 109 MG/DL (<150)
[2021-06-05] MEDS: MIDAZOLAM HCL 250 MG in D5W 200 ML IV SCH (09:48)
[2021-06-05] MEDS: diazePAM 10MG/2ML SYRINGE (J3360 PER 5MG) IV PRN ×2 (10:44→19:42)
[2021-06-05] MEDS ORDERED: PROPOFOL 1,000 MG/100 ML VIAL As Ordered ONE (11:30)
[2021-06-05] MEDS: propofoL 1,000 MG in IV 1 EA IV SCH ×3 (11:30→19:53)
[2021-06-06] VITALS (30 sets, daily range): BP systolic 86–152; BP diastolic 58–99
[2021-06-06] MEDS: IPRATROPIUM 0.5MG/ALBUTEROL 2.5MG INH SOL UD 3ML (DUONEB) NEB SCH ×7 (00:26→23:07)
[2021-06-06] MEDS: dexmedeTOMidine 200 MCG in IV 1 EA IV SCH ×9 (00:47→22:23)
[2021-06-06] MEDS: MIDAZOLAM HCL 250 MG in D5W 200 ML IV SCH (04:21)
[2021-06-06] MEDS: propofoL 1,000 MG in IV 1 EA IV SCH (04:29)
[2021-06-06 05:37] LABS: ALBUMIN 2.4 GM/DL (3.2-5.2); ALT/SGPT 18 U/L (12-78); BILIRUBIN,TOTAL 0.4 MG/DL (0.2-1.0); BLOOD UREA NITROGEN 8 MG/DL (7-18); CALCIUM LEVEL 9.1 MG/DL (8.5-10.1); CARBON DIOXIDE LEVEL 29 MEQ/L (21-32); CHLORIDE LEVEL 108 MEQ/L (98-107); CHOLESTEROL LEVEL 110 MG/DL (< 200); CPK CREATINE PHOSPHOKINASE 30 U/L (39-308); CREATININE FOR GFR 0.52 MG/DL (0.70-1.30); GLOMERULAR FILTRATION RATE > 60.0 (>56); GLUCOSE, FASTING 145 MG/DL (70-100); LDH LACTATE DEHYDROGENASE 186 U/L (87-241); PHOSPHORUS LEVEL 5.3 MG/DL (2.5-4.9); POTASSIUM SERUM 3.4 MEQ/L (3.5-5.1); SODIUM LEVEL 144 MEQ/L (136-145); TOTAL PROTEIN 7.2 GM/DL (6.4-8.2); TRIGLYCERIDES LEVEL 142 MG/DL (<150)
[2021-06-06 05:47] LABS: ABG BASE EXCESS 0.9 (-2.0-2.0); ABG HCO3 24.5 MEQ/L (22.0-26.0); ABG O2 SATURATION 98.4 % (95.0-99.0); ABG PARTIAL PRESSURE CO2 35.7 mmHg (35.0-45.0); ABG STANDARD HCO3 25.3 MEQ/L (22.0-26.0); ABG TOTAL CO2 25.6 MEQ/L (22.0-29.0); ABG pH (ARTERIAL) 7.454 UNITS (7.350-7.450)
[2021-06-06] MEDS ORDERED: THIAMINE 100 MG TAB GT SCH (09:00)
[2021-06-06] MEDS: CHLORHEXIDINE GLUCONATE 0.12 % 15ML UDC (PERIDEX ORAL RINSE) MT SCH ×2 (09:27→20:27)
[2021-06-06] MEDS: METOPROLOL TART 25 MG TABLET GT SCH (09:28)
[2021-06-06] MEDS: NICOTINE 21MG/24HR 1 EA TRANSDERMAL TD SCH (09:28)
[2021-06-06] MEDS: FOLIC ACID 1 MG TAB NG SCH (09:28)
[2021-06-06] MEDS: MULTIVITAMINS/MINERALS THERAP 1 TAB NG SCH (09:28)
[2021-06-06] MEDS: DOCUSATE SOD LIQ 100MG/10ML UDC GT SCH ×2 (09:29→20:26)
[2021-06-06] MEDS: ENOXAPARIN 40MG/0.4ML SYRINGE (J1650 PER 10MG) SC SCH (09:29)
[2021-06-06] MEDS: PANTOPRAZOLE 40MG VIAL (C9113 PER 1) IV SCH (09:29)
[2021-06-06] MEDS: diazePAM 10MG/2ML SYRINGE (J3360 PER 5MG) IV PRN (11:32)
[2021-06-06] MEDS ORDERED: diazePAM 10MG/2ML SYRINGE (J3360 PER 5MG) IV ONE (11:55)
[2021-06-06] MEDS ORDERED: cloNIDine 0.2 MG TAB PO ONE (13:20)
[2021-06-06 13:35] LABS: BASO # 0.3 10^3/uL (0.0-0.2); BASO % 1.7 % (0.0-1.0); EOS # 0.1 10^3/uL (0.0-0.5); EOS % 0.5 % (0.0-3.0); HEMATOCRIT 44.1 % (42.0-52.0); HEMOGLOBIN 13.4 g/dl (13.5-17.5); LYMPH # 1.2 10^3/uL (1.5-5.0); LYMPH % 7.6 % (24.0-44.0); MEAN CORPUSCULAR HEMOGLOBIN 34.5 pg (27.0-33.0); MEAN CORPUSCULAR HGB CONC 30.4 g/dl (32.0-36.5); MEAN CORPUSCULAR VOLUME 113.7 fl (80.0-96.0); MONO # 1.4 10^3/uL (0.0-0.8); MONO % 8.4 % (2.0-8.0); NEUTROPHILS # 13.1 10^3/uL (1.5-8.5); NEUTROPHILS % 81.4 % (36.0-66.0); PLATELET COUNT, AUTOMATED 478 10^3/uL (150-450); RED BLOOD COUNT 3.88 10^6/uL (4.30-6.10); WHITE BLOOD COUNT 16.1 10^3/uL (4.0-10.0)
[2021-06-06] MEDS: OXAZEPAM 15 MG CAP PO SCH ×2 (13:37→21:58)
[2021-06-06] MEDS ORDERED: diazePAM 10MG/2ML SYRINGE (J3360 PER 5MG) IV PRN ×2 (15:05)
[2021-06-06] MEDS: D5W/LR 1,000 ML IV SCH (15:16)
[2021-06-06] MEDS: cloNIDine 0.2 MG TAB PO SCH (20:27)
[2021-06-07] VITALS (9 sets, daily range): BP systolic 112–153; BP diastolic 74–93
[2021-06-07] MEDS: dexmedeTOMidine 200 MCG in IV 1 EA IV SCH ×2 (02:16→05:52)
[2021-06-07] MEDS: IPRATROPIUM 0.5MG/ALBUTEROL 2.5MG INH SOL UD 3ML (DUONEB) NEB SCH ×2 (03:36→07:17)
[2021-06-07] MEDS: D5W/LR 1,000 ML IV SCH (04:09)
[2021-06-07] MEDS: OXAZEPAM 15 MG CAP PO SCH (05:44)
[2021-06-07 06:05] LABS: BASO # 0.2 10^3/uL (0.0-0.2); BASO % 1.7 % (0.0-1.0); EOS # 0.1 10^3/uL (0.0-0.5); EOS % 0.4 % (0.0-3.0); HEMOGLOBIN 12.4 g/dl (13.5-17.5); LYMPH # 1.6 10^3/uL (1.5-5.0); LYMPH % 12.4 % (24.0-44.0); MEAN CORPUSCULAR HEMOGLOBIN 34.5 pg (27.0-33.0); MEAN CORPUSCULAR HGB CONC 32.6 g/dl (32.0-36.5); MEAN CORPUSCULAR VOLUME 105.8 fl (80.0-96.0); MONO # 1.2 10^3/uL (0.0-0.8); MONO % 9.1 % (2.0-8.0); NEUTROPHILS # 9.6 10^3/uL (1.5-8.5); NEUTROPHILS % 75.8 % (36.0-66.0); PLATELET COUNT, AUTOMATED 470 10^3/uL (150-450); RED BLOOD COUNT 3.59 10^6/uL (4.30-6.10); WHITE BLOOD COUNT 12.7 10^3/uL (4.0-10.0)
[2021-06-07 07:04] LABS: ALBUMIN 2.6 GM/DL (3.2-5.2); ALT/SGPT 19 U/L (12-78); BILIRUBIN,TOTAL 0.4 MG/DL (0.2-1.0); BLOOD UREA NITROGEN 8 MG/DL (7-18); CALCIUM LEVEL 9.3 MG/DL (8.5-10.1); CARBON DIOXIDE LEVEL 30 MEQ/L (21-32); CHLORIDE LEVEL 107 MEQ/L (98-107); CHOLESTEROL LEVEL 113 MG/DL (< 200); CPK CREATINE PHOSPHOKINASE 32 U/L (39-308); CREATININE FOR GFR 0.56 MG/DL (0.70-1.30); GLOMERULAR FILTRATION RATE > 60.0 (>56); GLUCOSE, FASTING 131 MG/DL (70-100); LDH LACTATE DEHYDROGENASE 178 U/L (87-241); POTASSIUM SERUM 4.1 MEQ/L (3.5-5.1); SODIUM LEVEL 143 MEQ/L (136-145); TOTAL PROTEIN 6.8 GM/DL (6.4-8.2); TRIGLYCERIDES LEVEL 104 MG/DL (<150)
[2021-06-07] MEDS: DOCUSATE SOD LIQ 100MG/10ML UDC GT SCH (08:09)
[2021-06-07] MEDS: PANTOPRAZOLE 40MG VIAL (C9113 PER 1) IV SCH (08:09)
[2021-06-07] MEDS: cloNIDine 0.2 MG TAB PO SCH (08:11)
[2021-06-07] MEDS: FOLIC ACID 1 MG TAB NG SCH (08:11)
[2021-06-07] MEDS: ENOXAPARIN 40MG/0.4ML SYRINGE (J1650 PER 10MG) SC SCH (08:12)
[2021-06-07] MEDS: MULTIVITAMINS/MINERALS THERAP 1 TAB NG SCH (08:12)
[2021-06-07] MEDS: NICOTINE 21MG/24HR 1 EA TRANSDERMAL TD SCH (08:12)
[2021-06-07] MEDS ORDERED: PILL CUTTER 1 EACH XX PRN (08:25)
[2021-06-07] MEDS ORDERED: cloNIDine 0.2 MG TAB PO SCH (16:00)
[2021-06-12] MEDS ORDERED: OMEP-173 PO (13:46)
== END 2021-06-07 11:25 | disposition left against medical advice (07) | DRG 130 ==
LOC: M ED 12:15 → ENRESERV 17:12 → M PCU 17:27
PROVIDERS: ADMIT Internal Medicine; ATTEND Internal Medicine Pulmonary Disease
PROC: 0W9B30Z Drainage of Left Pleural Cavity with Drainage Device, Percutaneous Approach (ICD-10-PCS; principal; 2021-05-21)
PROC: 0BH17EZ Insertion of Endotracheal Airway into Trachea, Via Natural or Artificial Opening (ICD-10-PCS; 2021-05-29)
PROC: 5A1955Z Respiratory Ventilation, Greater than 96 Consecutive Hours (ICD-10-PCS; 2021-05-29)
DX: J93.11 Primary spontaneous pneumothorax (principal); I47.2 Ventricular tachycardia; F10.231 Alcohol dependence with withdrawal delirium; D69.59 Other secondary thrombocytopenia; E46 Unspecified protein-calorie malnutrition; G31.2 Degeneration of nervous system due to alcohol; E83.42 Hypomagnesemia; F10.26 Alcohol dependence with alcohol-induced persisting amnestic disorder; F17.210 Nicotine dependence, cigarettes, uncomplicated; J96.00 Acute respiratory failure, unspecified whether with hypoxia or hypercapnia; J43.9 Emphysema, unspecified; R20.0 Anesthesia of skin; F41.8 Other specified anxiety disorders; J98.11 Atelectasis; R63.4 Abnormal weight loss; R74.01 Elevation of levels of liver transaminase levels; E87.6 Hypokalemia; I10 Essential (primary) hypertension; K21.9 Gastro-esophageal reflux disease without esophagitis; Z20.822 Contact with and (suspected) exposure to COVID-19

== ENCOUNTER 2021-06-11 10:29 | Inpatient (IN) | payer BC ==
[~2021-06-11] VITALS: Ht 188 cm; Wt 67.8 kg
[~2021-06-11 10:29] MED LIST changes: +ALBU8.5H INH; +AZIT-12 PO; +DOCUSATE SODIUM 100MG CAPSULE PO SCH
[2021-06-11 11:42] LABS: BASO # 0.2 10^3/uL (0.0-0.2); BASO % 1.6 % (0.0-1.0); EOS # 0.2 10^3/uL (0.0-0.5); EOS % 1.3 % (0.0-3.0); HEMOGLOBIN 13.1 g/dl (13.5-17.5); LYMPH # 1.6 10^3/uL (1.5-5.0); LYMPH % 13.1 % (24.0-44.0); MEAN CORPUSCULAR HEMOGLOBIN 33.8 pg (27.0-33.0); MEAN CORPUSCULAR HGB CONC 32.8 g/dl (32.0-36.5); MEAN CORPUSCULAR VOLUME 103.1 fl (80.0-96.0); MONO # 1.2 10^3/uL (0.0-0.8); MONO % 10.1 % (2.0-8.0); NEUTROPHILS % 73.3 % (36.0-66.0); PLATELET COUNT, AUTOMATED 438 10^3/uL (150-450); RED BLOOD COUNT 3.88 10^6/uL (4.30-6.10); WHITE BLOOD COUNT 12.3 10^3/uL (4.0-10.0)
--- OUTSIDE RECORDS SUMMARY | 2021-06-11 11:49 | CCD | Continuity of Care Document ---
Author Author Oseas BOO M.D. Organization Unknown Address [id number] [place] [address] [address] [place] [address] Phone [phone] Care Team Providers Care Hand Driller Name Role Phone Mata Santillan MD @ [facility] [phone] Marvel Gonzales MD [facility] [phone] Problems Description No Information Available Social History Type Date Description Comments Sex Unknown ETOH Use 4 A Week Recreational Drug Use Denies Drug Use Tobacco Use Start: Unknown Patient is a current smoker, smo kes every day 1 PPD Allergies and adverse reactions Description No Known Drug Allergies Medications Active Medications SIG Qnty Indications Ordering Provide r Date Ibuprofen 800mg Tablets 1 by mouth 3 times a day with meals 90tabs Gilberto Allan JR, MD 0 Immunizations Description No Information Available Vital Signs Date Vital Result Comment 04/03/2020 1:21pm BP Systolic 119 mmHg BP Diastolic 83 mmHg Heart Rate 108 /min Height 74 inches 6'2" Weight 168.25 lb BMI (Body Mass Index) 21.6 kg/m2 [place] Body Weight 190 lb Weight 76.318 kg BSA (Body Surface Area) 2.02 m2 06/22/2018 9:29am BP Systolic 115 mmHg LA BP Diastolic 81 mmHg LA Heart Rate 96 /min Height 74 inches 6'2" Weight 172.00 lb BMI (Body Mass Index) 22.1 kg/m2 [place] Body Weight 190 lb Weight 78.019 kg BSA (Body Surface Area) 2.04 m2 Results Test Acquired Date Facility Test Result H/L Range Note Arterial Blood Gas 05/21/2021 [facility] n[facility] Main [facility] [address] [place] [address] [phone] ABG pH (Arterial) 7.458 units High 7.350-7.450 ABG Partial Pressure Co2 37.3 mmHg Normal 35.0-45.0 ABG Partial Pressure O2 77.3 mmHg Normal 75.0-100.0 ABG Total Co2 27.0 mEq/L Normal 22.0-29.0 ABG Hco3 25.8 mEq/L Normal 22.0-26.0 ABG Base Excess 2.1 High -2.0-2.0 ABG Standard Hco3 26.3 mEq/L High 22.0-26.0 ABG O2 Saturation 95.3 % Normal 95.0-99.0 Procedures Description No Information Available Medical Devices Description No Information Available Encounters Description No Information Available Assessments Description No Information Available Plan of Treatment 04/03/2020 - Gilberto Allan JR, MD* R10.815 Right lower quadrant abdominal tenderness* Comments:* Patient has some pain in the right groin area and this is very similar to the pain that he had originally with his original injury. Given that he had some improvement of his pain with a hernia repair he feels that it must be related to a hernia or at least the mesh that is in place. In general if it was a recurrence of trauma to the right inguinal area and the mesh was pulled off the fascia posteriorly there may be some element of discomfort that may take 4-6 weeks for this to improved/resolved however my concern is that this is unrelated to a hernia being recurrent. And since I'm seeing no evidence of a recurrent inguinal hernia and the type of repair is intra-abdominal his pain is much more musculoskeletal externally and leads me to believe that this is more of a musculoskeletal issue in the right hip or right groin area. I'll order him some ibuprofen I've asked him to try some ice or heat to see if that makes a difference with the discomfort. I would like the orthopedic surgeons to evaluate him for additional recommendations possibly x-rays MRI etc. if necessary and if he has ongoing pain we may refer him to the pain clinic for evaluation/trigger point injection. If he still has ongoing pain issues a CT of the pelvis is also warranted to rule out any other unusual presentations for this pain. Unfortunately if it's a musculoskeletal issue and may take a little while for this to improve and typically 4-6 weeks as the timing of this, I discussed this with him as well. He'll contact the office if he has increasing pain and discomfort or questions. From a hernia repair issue he is able to go back to work however when I see him limping around in significant discomfort, I have questions whether he will be able to tolerate work from a musculoskeletal injury and may need to be at a light duty/off work for some time until this resolves. Functional Status Description No Information Available Mental Status Description No Information Available Referrals Description No Information Available
--- OUTSIDE RECORDS SUMMARY | 2021-06-11 11:49 | CCD ---
Author Author [facility] Organization [facility] Address Unknown Phone Unavailable Care Team Providers Care Active Directory Engineer Name Role Phone Fish, B Gurmeet DUTTA Unavailable Unavailable Fish, B Gurmeet DUTTA Unavailable Unavailable Fish, B Gurmeet DUTTA Unavailable Unavailable Fish, B Gurmeet DUTTA Unavailable Unavailable Fish, B Gurmeet DUTTA Unavailable Unavailable Fish, B Gurmeet DUTTA Unavailable Unavailable Fish, B Gurmeet DUTTA Unavailable Unavailable Fish, B Gurmeet DUTTA Unavailable Unavailable Fish, B Gurmeet DUTTA Unavailable Unavailable Fish, B Gurmeet DUTTA Unavailable Unavailable Fish, B Gurmeet DUTTA Unavailable Unavailable Fish, B Gurmeet DUTTA Unavailable Unavailable Fish, B Gurmeet DUTTA Unavailable Unavailable Fish, B Gurmeet DUTTA Unavailable Unavailable Fish, B Gurmeet DUTTA Unavailable Unavailable Fish, B Gurmeet DUTTA Unavailable Unavailable Fish, B Gurmeet DUTTA Unavailable Unavailable Fish, B Gurmeet DUTTA Unavailable Unavailable Fish, B Gurmeet DUTTA Unavailable Unavailable Fish, B Gurmeet DUTTA Unavailable Unavailable Fish, B Gurmeet DUTTA Unavailable Unavailable Fish, B Gurmeet DUTTA Unavailable Unavailable Fish, B Gurmeet DUTTA Unavailable Unavailable Fish, B Gurmeet DUTTA Unavailable Unavailable Fish, B Gurmeet DUTTA Unavailable Unavailable Fish, B Gurmeet DUTTA Unavailable Unavailable Fish, B Gurmeet DUTTA Unavailable Unavailable Fish, B Gurmeet DUTTA Unavailable Unavailable Fish, B Gurmeet DUTTA Unavailable Unavailable Fish, B Gurmeet DUTTA Unavailable Unavailable Fish, B Gurmeet DUTTA Unavailable Unavailable Fish, B Gurmeet DUTTA Unavailable Unavailable Fish, B Gurmeet DUTTA Unavailable Unavailable Fish, B Gurmeet DUTTA Unavailable Unavailable Fish, B Gurmeet DUTTA Unavailable Unavailable Fish, B Gurmeet DUTTA Unavailable Unavailable Fish, B Gurmeet DUTTA Unavailable Unavailable Fish, B Gurmeet DUTTA Unavailable Unavailable Fish, B Gurmeet DUTTA Unavailable Unavailable Fish, B Gurmeet DUTTA Unavailable Unavailable Fish, B Gurmeet DUTTA Unavailable Unavailable Fish, B Gurmeet DUTTA Unavailable Unavailable Fish, B Gurmeet DUTTA Unavailable Unavailable Fish, B Gurmeet DUTTA Unavailable Unavailable Fish, B Gurmeet DUTTA Unavailable Unavailable Fish, B Gurmeet DUTTA Unavailable Unavailable Fish, B Gurmeet DUTTA Unavailable Unavailable Fish, B Gurmeet DUTTA Unavailable Unavailable Fish, B Gurmeet DUTTA Unavailable Unavailable Fish, B Gurmeet DUTTA Unavailable Unavailable Fish, B Gurmeet DUTTA Unavailable Unavailable Fish, B Gurmeet DUTTA Unavailable Unavailable Fish, B Gurmeet DUTTA Unavailable Unavailable Fish, B Gurmeet DUTTA Unavailable Unavailable Fish, B Gurmeet DUTTA Unavailable Unavailable Fish, B Gurmeet DUTTA Unavailable Unavailable Fish, [facility], PA-C Unavailable Unavailabl e Fish, [facility], PA-C Unavailable Unavailabl e Fish, [facility], PA-C Unavailable Unavailabl e Fish, [facility], PA-C Unavailable Unavailabl e Fish, [facility], PA-C Unavailable Unavailabl e Fish, [facility], PA-C Unavailable Unavailabl e Fish, [facility], PA-C Unavailable Unavailabl e Fish, [facility], PA-C Unavailable Unavailabl e Fish, [facility], PA-C Unavailable Unavailabl e Fish, [facility], PA-C Unavailable Unavailabl e Fish, [facility], PA-C Unavailable Unavailabl e Fish, [facility], PA-C Unavailable Unavailabl e Fish, [facility], PA-C Unavailable Unavailabl e Fish, [facility], PA-C Unavailable Unavailabl e Fish, [facility], PA-C Unavailable Unavailabl e Fish, [facility], PA-C Unavailable Unavailabl e Fish, [facility], PA-C Unavailable Unavailabl e Fish, [facility], PA-C Unavailable Unavailabl e Fish, [facility], PA-C Unavailable Unavailabl e Fish, [facility], PA-C Unavailable Unavailabl e Fish, [facility], PA-C Unavailable Unavailabl e Fish, [facility], PA-C Unavailable Unavailabl e Fish, Gissel Santana MPAS, PA-C Unavailable Unavailabl e Fish, Gissel Santana MPAS, PA-C Unavailable Unavailabl e Fish, Gissel Santana MPAS, PA-C Unavailable Unavailabl e Fish, Gissel Santana MPAS, PA-C Unavailable Unavailabl e Fish, Gissel Santana MPAS, PA-C Unavailable Unavailabl e Fish, Gissel Santana MPAS, PA-C Unavailable Unavailabl e Fish, Gissel Santana MPAS, PA-C Unavailable Unavailabl e Fish, Gissel Santana MPAS, PA-C Unavailable Unavailabl e Fish, Gissel Santana MPAS, PA-C Unavailable Unavailabl e Fish, Gissel Santana MPAS, PA-C Unavailable Unavailabl e Fish, Gissel Santana MPAS, PA-C Unavailable Unavailabl e Fish, Gissel Santana MPAS, PA-C Unavailable Unavailabl e Fish, Gissel Santana MPAS, PA-C Unavailable Unavailabl e Fish, Gissel Santana MPAS, PA-C Unavailable Unavailabl e Re-disclosure Warning The records that you are about to access may contain information from federally-assisted alcohol or drug abuse programs. If such information is present, then the following federally mandated warning applies: This information has been disclosed to you from records protected by federal confidentiality rules (42 CFR part 2). The federal rules prohibit you from making any further disclosure of this information unless further disclosure is expressly permitted by the written consent of the person to whom it pertains or as otherwise permitted by 42 CFR part 2. A general authorization for the release of medical or other information is NOT sufficient for this purpose. The Federal rules restrict any use of the information to criminally investigate or prosecute any alcohol or drug abuse patient.The records that you are about to access may contain highly sensitive health information, the redisclosure of which is protected by Article 27-F of the [facility] Public Health law. If you continue you may have access to information: Regarding HIV / AIDS; Provided by facilities licensed or operated by the [facility] Office of Mental Health; or Provided by the [facility] Office for People With Developmental Disabilities. If such information is present, then the following [facility] mandated warning applies: This information has been disclosed to you from confidential records which are protected by state law. State law prohibits you from making any further disclosure of this information without the specific written consent of the person to whom it pertains, or as otherwise permitted by law. Any unauthorized further disclosure in violation of state law may result in a fine or fci sentence or both. A general authorization for the release of medical or other information is NOT sufficient authorization for further disc losure. Encounters Encounter Providers Location Date Indications Data Source(s ) OFFICE OUTPATIENT VISIT 15 MINUTES Attender: Esther RUSSELL PA-C Physical Therapy 09/04/2020 08:30:00 AM EST [facility] ([facility]) OFFICE OUTPATIENT VISIT 15 MINUTES Attender: Esther RUSSELL PA-C Physical Therapy 06/18/2020 08:30:00 AM EST [facility] ([facility]) OFFICE OUTPATIENT NEW 30 MINUTES Attender: Gurmeet Jean MD Physic al Therapy 04/23/2020 01:30:00 PM EDT [facility] ([facility]) Immunizations Vaccine Date Status Description Data Source(s) COVID-19 VACCINE Pfizer 10/09/2020 12:00:00 AM EDT completed [facility] Vaccine Series Complete: YESThis Data wa s Submitted to [facility] Via [facility]. COVID-19 VACCINE Pfizer 09/18/2020 12:00:00 AM EST completed [facility] Vaccine Series Complete: NOThis Data was Submitted to [facility] Via [employer]. INFLUENZA VIRUS VACCINE QUADRIVAL [id number](6 MOS AND UP)/PF 05/10/2020 12:00:00 AM EDT completed [facility] Medications Medication Brand Name Start Date Product Form Dose Route Admi nistrative Instructions Pharmacy Instructions Status Indications Reaction Description Data Source(s) 90 mcg/actuation 05/16/2021 12:00:00 AM EDT HFA aerosol inha ler 8 INHALE 2 PUFFS BY MOUTH THREE TIMES A DAY FOR 10 DAYS INHALE 2 PUFFS BY MOUTH THREE TIMES A DAY FOR 10 DAYS SOLD: 05/16/2021 [facility] 250 mg 05/16/2021 12:00:00 AM EDT tablet 6 TAKE TWO TABLETS BY MOUTH AT ONCE ON THE FIRST DAY THEN TAKE ONE DAILY THEREAFTER TAKE TWO TABLETS BY MOUTH AT ONCE ON THE FIRST DAY THEN TAKE ONE DAILY THEREAFTER SOLD: 05/16/2021 [facility] 800 mg 04/10/2021 12:00:00 AM EDT tablet 21 TAKE ONE TABLET BY MOUTH THREE TIMES A DAY FOR 7 DAYS TAKE ONE TABLET BY MOUTH THREE TIMES A DAY FOR 7 DAYS SOLD: 04/14/2021 [facility] Medrol Medrol 09/04/2020 12:00:00 AM EST active [facility] ([facility]) 500 mg 08/28/2020 12:00:00 AM EST tablet 20 TAKE ONE TABLET BY MOUTH EVERY 12 HOURS FOR 10 DAYS TAKE ONE TABLET BY MOUTH EVERY 12 HOURS FOR 10 DAYS SO LD: 08/28/2020 [facility] 800 mg 04/04/2020 12:00:00 AM EDT tablet 90 TAKE ONE TABLET BY MOUTH THREE TIMES A DAY WITH MEALS TAKE ONE TABLET BY MOUTH THREE TIMES A DAY WITH MEALS SOLD: 06/14/2020 [facility] Insurance Providers Payer name Policy type / Coverage type Policy ID Covered democrat ID Covered democrat's relationship to palmer Policy Palmer Plan Information [employer] [place]/307 [id number] SP [id number] [employer] [place]/307 [id number] SP [id number] [employer] [place]/307 [id number] SP [id number] [employer] [place]/307 [id number] SP [id number] [employer] [place]/307 [id number] SP [id number] [employer] [place]/307 [id number] SP [id number] [employer] [place]/307 [id number] SP [id number] [employer] [place]/307 [id number] SP [id number] [employer] B [id number] S [id number] [employer] BCBS B [id number] S [id number] SELF PAY ONLY [id number] SP [id number] [employer]BS B [id number] S [id number] [employer] [place]/307 [id number] SP [id number] [employer]LL[employer] BCBS B [id number] S [id number] [employer] [place]/307 [id number] SP [id number] Problems, Conditions, and Diagnoses No Information Surgeries/Procedures Procedure Description Date Indications Data Source(s) X-Ray Hip Unilateral With Pelvis 2-3 Views 04/23/2020 12:00:00 AM EDT [facility] ([facility]) Results ID Date Data Source [id number] 05/21/2021 05:14:00 PM EST [facility] ([facility]) Name Value Range Interpretation Code Description Data Meena rce(s) Supporting Document(s) ABG pH (Arterial) 7.458 units 7.350-7.450 Above high normal [facility] ([facility]) ABG Partial Pressure Co2 37.3 mmHg 35.0-45.0 Normal (applies to non-numeric results) [facility] ([facility]) ABG Partial Pressure O2 77.3 mmHg 75.0-100.0 Normal ( applies to non-numeric results) [facility] ([facility]) ABG Hco3 25.8 meq/L 22.0-26.0 Normal (applies to non-numeric resul ts) [facility] ABG Total Co2 27.0 meq/L 22.0-29.0 Normal (applies to non-numeric re sults) [facility] ([facility]) ABG Base Excess 2.1 Above high normal [facility] ([facility]) ABG Standard Hco3 26.3 meq/L 22.0-26.0 Above high normal [facility] ([facility]) ABG O2 Saturation 95.3 % 95.0-99.0 Normal (applies to non-numeri c results) [facility] ([facility]) ID Date Data Source [id number] 05/21/2021 03:40:00 PM EST [facility] Name Value Range Interpretation Code Description Data Meena rce(s) Supporting Document(s) SARS coronavirus 2 RNA [Presence] in Res piratory specimen by JOAO with probe detection NEGATIVE [facility] This lab was ordered by [facility] a nd reported by [facility]. ID Date Data Source [id number] 08/28/2020 12:00:00 AM EST [facility] Name Value Range Interpretation Code Description Data Meena rce(s) Supporting Document(s) SARS-CoV2 Rapid Antigen Negative [facility] This lab [facility] and reported by [facility]. ID Date Data Source [id number] 08/02/2020 12:00:00 AM EST [facility] Jean Pa-C Patient Name: TRUNG AGUAYO [id number] [facility] Date of : 1970[place], [place] [address]- Date of Exam: 08/02/2020#: Fax: [phone] EXAM: ARTHROCENTESIS RTHIP-ASPIR / INJ STEROID/PAIN MEDSRIGHT HIP INJECTION:The procedure was performed by REBECA Hernandes under the generalsupervision of Dr. Carpenter.The benefits and risks including, but not limited to pain, infection,bleeding, and anaphylaxis were explained to the patient and informedconsent was obtained.The right femoral neck was localized using fluoroscopic guidance. The skinwas prepped and draped in a sterile fashion. 1% Lidocaine was used as alocal anesthetic. Using fluoroscopic guidance, a #22 gauge spinal needlewas inserted and advanced to the femoral neck. 1 cc of Omnipaque 300 wasinjected to verify placement. 5 cc of a solution containing 3 cc of 1%Lidocaine and 2 cc of DepoMedrol 40 mg was injected into the joint space.The needle was then removed.The patient tolerated the procedure well and there were no immediatecomplications.Fluoroscopy time was 2 seconds at 3 pulses/second. This is equal to 0.50seconds continuous fluoroscopy time which is a 75% reduction in radiation.MARQUES Buckley/Francesca greene for referring TRUNG AGUAYO to our office. Electronically Signed - COSMO CARPENTER MD 08/12/20 20:04 Name Value Range Interpretation Code Description Data Meena rce(s) Supporting Document(s) ID Date Data Source [id number] 08/02/2020 12:00:00 AM [facility] Esther Jean Pa-C Patient Name: TRUNG AGUAYO [id number] [facility] Date of : 1970[place] [address]- Date of Exam: 08/02/2020#: Fax: [phone] EXAM: ARTHROCENTESIS RTHIP-ASPIR / INJ STEROID/PAIN MEDSRIGHT HIP INJECTION:The procedure was performed by REBECA Hernandes under the generalsupervision of Dr. Carpenter.The benefits and risks including, but not limited to pain, infection,bleeding, and anaphylaxis were explained to the patient and informedconsent was obtained.The right femoral neck was localized using fluoroscopic guidance. The skinwas prepped and draped in a sterile fashion. 1% Lidocaine was used as alocal anesthetic. Using fluoroscopic guidance, a #22 gauge spinal needlewas inserted and advanced to the femoral neck. 1 cc of Omnipaque 300 wasinjected to verify placement. 5 cc of a solution containing 3 cc of 1%Lidocaine and 2 cc of DepoMedrol 40 mg was injected into the joint space.The needle was then removed.The patient tolerated the procedure well and there were no immediatecomplications.Fluoroscopy time was 2 seconds at 3 pulses/second. This is equal to 0.50seconds continuous fluoroscopy time which is a 75% reduction in radiation.MARQUES Buckley/Francesca you for referring TRUNG AGUAYO to our office. Electronically Signed - COSMO CARPENTER MD 08/12/20 20:04 Name Value Range Interpretation Code Description Data Meena rce(s) Supporting Document(s) ID Date Data Source [id number] 06/10/2020 12:00:00 AM [facility] Gurmeet Jean MD Patient Name: TRUNG AGUAYO [id number] [facility] Date of : 1970[place] [address] Date of Exam: 06/10/2020PH#: Fax: [phone] EXAM: MRI HIP RIGHT WITHOUT CONTRASTCLINICAL INFORMATION: Chronic atraumatic pain.3T multiplanar MRI imaging of the right hip was obtained using varioussequences.There are no prior right hip MRI's for comparison.There is pyuc-ns-hkhfemqg asymmetric hip joint space narrowing bilaterally. The femoral heads are spherical in shape and symmetric in appearance.There is no abnormal focal chondral or subchondral signal seen in thefemoral or acetabular component of either hip. There is slightly moreright hip joint fluid than left without a leanne effusion. There is patchyT2 hypersignal seen in the right hip trochanteric tendinobursal region.Minimal fluid is seen in the left hip trochanteric tendinobursal region.Dedicated small [id number]-[id number] magnified images in the right hip in allthree planes shows some patchy and linear hypersignal changes seen in theanterior superior labrum with mild surface irregularity.The cortical and marrow signal seen throughout the imaged osseous pelvis iswithin normal limits. There is no evidence of a mass or mass effect. Milddegenerative changes are seen involving the imaged portion of thesacroiliac joints.IMPRESSION:1. There is rather advanced appearing right hip trochanterictendinobursitis.2. Minimal fluid collection in the tendinobursal region of the left hip.3. Bilateral hip DJD as described above with slightly increased right hipjoint fluid than left.4. Labral signal changes which are non specific as described above. Iflabral pathology is of clinical concern, consider followup with hip MRIarthrography.Accredited by the [employer] in [place].AMERICA Macias/Francesca you for referring TRUNG AGUAYO to our office. Electronically Signed - JEANE GUZMAN DO 06/10/20 16:26 Name Value Range Interpretation Code Description Data Meena rce(s) Supporting Document(s) Procedure Social History No Information Vital Signs ID Date Data Source UNK Name Value Range Interpretation Code Description Data Source(s) Body temperature 98.9 [degF] 98.9 [degF] [facility] ([facility]) Body temperature 96.2 [degF] 96.2 [degF] [facility] ([facility]) Body height 72 [in_i] 72 [in_i] [facility] ([facility]) 6'0" Body weight 164.50 [lb_av] 164.50 [lb_av] [facility] ([facility]) Body mass index (BMI) [Ratio] 22.3 kg/m2 22.3 k g/m2 [facility] ([facility])
--- NOTE | 2021-06-11 11:52 | REP ---
INDICATION: Drug Overdose. COMPARISON: 04/05/2016. TECHNIQUE: CT brain performed in the axial plane. Coronal reconstruction images are performed. FINDINGS: There is mild chronic atrophy and periventricular small vessel ischemic change. There is no acute intracranial hemorrhage, midline shift or mass effect. No extra-axial fluid collection. Bone window examination is unremarkable. The visualized paranasal sinuses and mastoid air cells are clear. IMPRESSION: Mild chronic changes. No acute intracranial hemorrhage, midline shift or mass effect. <Electronically signed by Ernesto Carpenter > 06/11/21 [id number]
--- NOTE | 2021-06-11 11:57 | REP ---
INDICATION: Drug Overdose. COMPARISON: 04/05/2016. TECHNIQUE: CT cervical spine performed in the axial plane, with sagittal and coronal reconstruction images performed. FINDINGS: There is no acute compression fracture or malalignment. There is no prevertebral soft tissue swelling. Disc spaces are well preserved. There is normal cervical lordosis. There is no abnormal density in the spinal canal. IMPRESSION: No evidence of acute fracture or dislocation. <Electronically signed by Ernesto Carpenter > 06/11/21 [id number]
[2021-06-11 12:12] LABS: ACETAMINOPHEN LEVEL < 2.0 UG/ML (10.0-30.0); ALBUMIN 3.1 GM/DL (3.2-5.2); ALT/SGPT 26 U/L (12-78); BILIRUBIN,DIRECT 0.2 MG/DL (0.0-0.2); BILIRUBIN,TOTAL 0.5 MG/DL (0.2-1.0); BLOOD UREA NITROGEN 19 MG/DL (7-18); CALCIUM LEVEL 9.6 MG/DL (8.5-10.1); CARBON DIOXIDE LEVEL 23 MEQ/L (21-32); CHLORIDE LEVEL 104 MEQ/L (98-107); ETHYL ALCOHOL (ETHANOL) < 0.003 % (0.000-0.010); GLOMERULAR FILTRATION RATE > 60.0 (>56); GLUCOSE, FASTING 134 MG/DL (70-100); POTASSIUM SERUM 4.1 MEQ/L (3.5-5.1); SALICYLATE LEVEL < 1.7 MG/DL (5.0-30.0); SODIUM LEVEL 140 MEQ/L (136-145); TOTAL PROTEIN 7.8 GM/DL (6.4-8.2)
[2021-06-11] MEDS ORDERED: THIAMINE 200MG 2ML VIAL IM ONE (13:10)
[2021-06-11] MEDS ORDERED: LORazepam 2 MG/ML VIAL IV STA (13:41)
[2021-06-11] MEDS ORDERED: LORazepam 2 MG/ML VIAL As Ordered ONE (13:42)
[2021-06-11] MEDS ORDERED: diazePAM 10MG/2ML SYRINGE (J3360 PER 5MG) As Ordered ONE (13:48)
[2021-06-11] MEDS ORDERED: diazePAM 10MG/2ML SYRINGE (J3360 PER 5MG) IV ONE ×2 (13:50→14:05)
[2021-06-11] MEDS ORDERED: MOM 30ML SUSPENSION UDC PO PRN (13:55)
[2021-06-11] MEDS ORDERED: ACETAMINOPHEN TAB 650MG DOSE (2X325MG) PO PRN (13:55)
[2021-06-11] MEDS ORDERED: MAALOX 30 ML SUSP *UDC PO PRN (13:55)
[2021-06-11] MEDS ORDERED: HEPARIN SOD (PORCINE) 5000UNITS/ML 1ML VIAL/SYRINGE SC SCH (14:00)
[2021-06-11 14:09] LABS: RSV AMPLIFICATION NEGATIVE (NEGATIVE)
[2021-06-11] MEDS: OXAZEPAM 15 MG CAP PO SCH ×2 (14:21→18:00)
--- OUTSIDE RECORDS SUMMARY | 2021-06-11 14:23 | CCD ---
Author Author [facility] Organization [facility] Address Unknown Phone Unavailable Care Team Providers Care Ton Container Filler Name Role Phone Fish, B Gurmeet DUTTA [...] Fish, B Gurmeet DUTTA Unavailable Unavailable Fish, [facility], PA-C Unavailable Unavailabl e Fish, [facility], PA-C Unavailable Unavailabl e Fish, [facility], PA-C Unavailable Unavailabl e Fish, [facility], PA-C Unavailable Unavailabl e Fish, [facility], PA-C Unavailable Unavailabl e Fish, [facility], PA-C Unavailable Unavailabl e Fish, [facility], PA-C Unavailable Unavailabl e Fish, [facility], PA-C Unavailable Unavailabl e Fish, [facility], PA-C Unavailable Unavailabl e Fish, [facility], PA-C Unavailable Unavailabl e Fish, [facility], PA-C Unavailable Unavailabl e Fish, [facility], PA-C Unavailable Unavailabl e Fish, [facility], PA-C Unavailable Unavailabl e Fish, [facility], PA-C Unavailable Unavailabl e Fish, [facility], PA-C Unavailable Unavailabl e Fish, [facility], PA-C Unavailable Unavailabl e Fish, [facility], PA-C Unavailable Unavailabl e Fish, [facility], PA-C Unavailable Unavailabl e Fish, [facility], PA-C Unavailable Unavailabl e Fish, [facility], PA-C Unavailable Unavailabl e Fish, [facility], PA-C Unavailable Unavailabl e Fish, [facility], PA-C Unavailable Unavailabl e Fish, Gissel Santana [...] is protected by Article 27-F of the [facility] Public Health law. If you continue you may have access to information: Regarding HIV / AIDS; Provided by facilities licensed or operated by the [facility] Office of Mental Health; or Provided by the [facility] Office for People With Developmental Disabilities. If such information is present, then the following [facility] mandated warning applies: This information has been [...] law may result in a fine or halfway sentence or both. A general authorization for the release of medical or other information is NOT sufficient authorization for further disc losure. Encounters Encounter Providers Location Date Indications Data Source(s ) OFFICE OUTPATIENT VISIT 15 MINUTES Attender: Esther RUSSELL PA-C Physical Therapy 09/04/2020 08:30:00 AM EST [facility] ([facility]) OFFICE OUTPATIENT VISIT 15 MINUTES Attender: Esther RUSSELL PA-C Physical Therapy 06/18/2020 08:30:00 AM EST [facility] ([facility]) OFFICE OUTPATIENT NEW 30 MINUTES Attender: Gurmeet Jean MD Physic al Therapy 04/23/2020 01:30:00 PM EDT [facility] ([facility]) Immunizations Vaccine Date Status Description Data Source(s) COVID-19 VACCINE Pfizer 10/09/2020 12:00:00 AM EDT completed [facility] Vaccine Series Complete: YESThis Data wa s Submitted to [facility] Via [employer]. COVID-19 VACCINE Pfizer 09/18/2020 12:00:00 AM EST completed [facility] Vaccine Series Complete: NOThis Data was Submitted to [facility] Via [employer]. INFLUENZA VIRUS VACCINE QUADRIVAL [id number](6 MOS AND UP)/PF 05/10/2020 12:00:00 AM EDT [...] type / Coverage type Policy ID Covered green party ID Covered green party's relationship to palmer Policy Palmer Plan Information [employer] [place]/307 [id number] SP [id number] [employer] [place]/307 [id number] SP [id number] [employer] [place]/307 [id number] SP [id number] [employer] [place]/307 [id number] SP [id number] [employer] [place]/307 [id number] SP [id number] [employer] [place]/307 [id number] SP [id number] [employer] [place]/307 [id number] SP [id number] [employer] [place]/307 [id number] SP [id number] [employer] B [id number] [employer] B [id number] S [id number] SELF PAY ONLY [id number] SP [id number] [employer] B [id number] S [id number] [employer] [place]/307 [id number] SP [id number] [employer]BS B [id number] S [id number] [employer] [place] P[place]/307 [id number] SP [id number] Problems, Conditions, and Diagnoses No Information Surgeries/Procedures Procedure Description Date Indications Data Source(s) X-Ray Hip Unilateral With Pelvis 2-3 Views 04/23/2020 12:00:00 AM EDT [facility] ([facility]) Results ID Date Data Source [id number] 05/21/2021 05:14:00 PM EST [facility] ([facility]) Name Value Range Interpretation Code Description Data Meena rce(s) Supporting Document(s) ABG pH (Arterial) 7.458 units 7.350-7.450 Above high normal [facility] ([facility]) ABG Partial Pressure Co2 37.3 mmHg 35.0-45.0 Normal (applies to non-numeric results) [facility] ([facility]) ABG Partial Pressure O2 77.3 mmHg 75.0-100.0 Normal ( applies to non-numeric results) [facility] ([facility]) ABG Hco3 25.8 meq/L 22.0-26.0 Normal (applies to non-numeric resul ts) [facility] ABG Total Co2 27.0 meq/L 22.0-29.0 Normal (applies to non-numeric re sults) [facility] ([facility]) ABG Base Excess 2.1 Above high normal [facility] ([facility]) ABG Standard Hco3 26.3 meq/L 22.0-26.0 Above high normal [facility] ([facility]) ABG O2 Saturation 95.3 % 95.0-99.0 Normal (applies to non-numeri c results) [facility] ([facility]) ID Date Data Source [id number] 05/21/2021 03:40:00 PM EST [facility] Name Value Range Interpretation Code Description Data Meena rce(s) Supporting Document(s) SARS coronavirus 2 RNA [Presence] in Res piratory specimen by JOAO with probe detection NEGATIVE [facility] This lab was ordered by [facility] a nd reported by [facility]. ID Date Data Source [id number] 08/28/2020 12:00:00 AM EST [facility] Name Value Range Interpretation Code Description Data Meena rce(s) Supporting Document(s) SARS-CoV2 Rapid Antigen Negative [facility] This lab was [facility] and reported by [facility]. ID Date Data Source [id number] 08/02/2020 12:00:00 AM EST [facility] Esther Jean Pa-C Patient Name: TRUNG AGUAYO [id number] [facility] Date of : 1970[place], [place] [address]- Date of Exam: 08/02/2020#: Fax: [phone] EXAM: [...] rce(s) Supporting Document(s) ID Date Data Source [id number] 08/02/2020 12:00:00 AM [facility] Esther Jean Pa-C Patient Name: TRUNG AGUAYO [id number] [facility] Date of : 1970[place] [address]- Date of Exam: 08/02/2020#: Fax: [phone] EXAM: [...] rce(s) Supporting Document(s) ID Date Data Source [id number] 06/10/2020 12:00:00 AM [facility] Gurmeet Jean MD Patient Name: TRUNG AGUAYO [id number] [facility] Date of : 1970[place] [address] Date of Exam: 06/10/2020PH#: Fax: [phone] EXAM: MRI HIP RIGHT WITHOUT CONTRASTCLINICAL INFORMATION: Chronic atraumatic pain.3T multiplanar MRI imaging of the right hip was obtained using varioussequences.There are no prior right hip MRI's for comparison.There is shlf-pr-censseiy asymmetric hip joint space narrowing bilaterally. The [...] the left hip trochanteric tendinobursal region.Dedicated small [id number] magnified images in the right hip in [...] consider followup with hip MRIarthrography.Accredited by the [employer] [place] [employer] [employer] in MR.AEMRICA Macias/Francesca you for referring TRUNG AGUAYO to our office. Electronically Signed - JEANE GUZMAN DO 06/10/20 16:26 Name Value Range Interpretation Code Description Data Meena rce(s) Supporting Document(s) Procedure Social History No Information Vital Signs ID Date Data Source UNK Name Value Range Interpretation Code Description Data Source(s) Body temperature 98.9 [degF] 98.9 [degF] [facility] ([facility]) Body temperature 96.2 [degF] 96.2 [degF] [facility] ([facility]) Body height 72 [in_i] 72 [in_i] [facility] ([facility]) 6'0" Body weight 164.50 [lb_av] 164.50 [lb_av] [facility] ([facility]) Body mass index (BMI) [Ratio] 22.3 kg/m2 22.3 k g/m2 [facility] ([facility])
--- NOTE | 2021-06-11 14:39 | HPEPDOC ---
[facility] Medical History & Physical Date of Admission Jun 11, 2021 Date of Service: Jun 11, 2021 History and Physical Chief complaint: Who presented to ER after he was witnessed to have a seizure at home History of present illness: Patient is a 50-year-old male with a PMHx of heavy alcohol dependence, nicotine dependence, emphysema, recent history of pneumothorax who presented to the ER after he had a witnessed seizure episode while at home. Patient was recently admitted to [facility] from 05/21 to 06/07 for SOB and was found to have a pneumothorax which had resolved with the chest tube. Patients hospital course was complicated with severe alcohol withdrawal and delirium tremens. Patient required high amounts of benzodiazepines and was eventually intubated and placed on mechanical ventilation started on Propofol, Precedex and Versed drip to help with his severe withdrawal. Patient was ultimately extubated on 06/06 and had opted to leave AGAINST MEDICAL ADVICE on 06/07. I was called by ER provider to evaluate patient in the room after psychiatry had evaluated him earlier and deemed that he does not have the capacity to make any further decisions. For my evaluation this morning while the bedside. Patient was able to converse appropriately.. He was able to answer that he denies recent headache, nausea, vomiting, chest pain, shortness breath, cough, abdominal pain consultation, diarrhea, urinary discomfort or any recent fevers or chills. Patient was oriented to person and place. However, when asking him the date patients eyes had rolled back and began to experience a tonic-clonic seizure. Patient was given 2 mg of Ativan. Entire seizure episode lasted for less than 2 minutes. Patient appears to be post ictal and very confused, unable to recall exactly where he was currently. Past Medical History: Heavy alcohol dependence Nicotine dependence Emphysema Recent history of pneumothorax Past Surgical History: Patient denies any prior surgeries Side chest tube placed recently (05/21/2021) Allergies: See below Medications: See below Family History: - Reviewed and noncontributory Social History: - Denies the use of illicit drugs; patient reports he smokes one pack per day for at least 30 years - Patient has a heavy alcohol abuse history; of note, patient did not have any drinks since his departure from the hospital 06/07 - Denies recent travel or sick contacts - Lives alone - Occupation; patient reports that he worked at [employer] Review of Systems: 10 point review of systems complete, all negative otherwise stated in HPI Physical exam: - Vitals: BP [139/65], HR [139], RR [20], Sat [95%RA], Temp [98.1F] - General: Lying in bed, Speaking in full sentences, Initially was oriented to person / place - HEENT: NC, AT, PERRLA - CVS: Tachycardic, +S1S2, - Murmurs / rubs / gallops - Lungs: Fair air entry bilaterally, No appreciable wheezing / rales / rhonchi - Abdomen: Soft, Non-distended, Non-tender - Extremities: No lower extremity edema, No calf tenderness - Neuro: 5/5 strength at upper and lower extremities bilaterally - Skin: No visible rashes Labs: See below Imaging: CT head 06/11: No evidence of acute fracture or dislocation. CT cervical spine 06/11: Mild chronic changes. No acute intracranial hemorrhage, midline shift or mass effect. EKG: See below Assessment and Plan: Seizure - likely 2/2 benzodiazepine withdrawal, possibly 2/2 alcohol withdrawal - Patient had had a recent prolonged hospital stay from 05/21 to 06/07 for alcohol withdrawal - While in the ER, patient had a tonic-clonic seizure that was witnessed - Patient remains hemodynamically stable and afebrile - Patient is saturating well on room air; will continue to follow continuous pulse oximetry - Imaging noted above - Will start Valium and Serax scheduled - Will continue to watch patient in the intensive care unit given that he continues to seize; case was discussed with pulmonology Heavy alcohol dependence - c/w Telemetry monitoring - Will start thiamine, folate and multivitamins - Will provide banana bag infusion initially followed by normal saline Nicotine dependence - Will provide nicotine patch Emphysema - Recent history of pneumothorax with chest tube placement and removal on prior admission - Patient does not appear to have any shortness of breath - Will do chest x-ray Gastrointestinal prophylaxis - Will start Protonix DVT prophylaxis - Will start Heparin Disposition: - As per patient request; called and updated Ariel Whitehead about plan of care Vital Signs Vital Signs Date Time Temp Pulse Resp B/P (MAP) Pulse Ox O2 Delivery O2 Flow Rate FiO2 06/11/21 14:15 98.1 123 20 139/65 (89) 95 Room Air Laboratory Data Labs 24H Laboratory Tests 2 06/11/21 10:46: Immature Granulocyte % (Auto) 0.6, Neutrophils (%) (Auto) 73.3H, Lymphocytes (%) (Auto) 13.1L, Monocytes (%) (Auto) 10.1H, Eosinophils (%) (Auto) 1.3, Basophils (%) (Auto) 1.6H, Neutrophils # (Auto) 9.0H, Lymphocytes # (Auto) 1.6, Monocytes # (Auto) 1.2H, Eosinophils # (Auto) 0.2, Basophils # (Auto) 0.2, Nucleated Red Blood Cells % (auto) 0.0, Anion Gap 13, Glomerular Filtration Rate > 60.0, Calcium Level 9.6, Total Bilirubin 0.5, Direct Bilirubin 0.2, Aspartate Amino Transf (AST/SGOT) 29, Alanine Aminotransferase (ALT/SGPT) 26, Alkaline P hosphatase 81, Total Creatine Kinase 52, Total Protein 7.8, Albumin 3.1L, Albumin/Globulin Ratio 0.7, Thyroid Stimulating Hormone (TSH) 2.820, Salicylates Level < 1.7L, Acetaminophen Level < 2.0L, Ethyl Alcohol Level < 0.003 06/11/21 10:50: POC Glucose (Misc Panel) 144H, POC Sodium (Misc Panel) 140, POC Potassium (Misc Panel) 3.4L, POC Chloride (Misc Panel) 100, POC Total CO2 (Misc Panel) 29.0H, POC Blood Urea Nitrogen (Misc Panel 21, POC Ionized Calcium (Misc Panel) 4.6, PO C Creatinine (Misc Panel) 0.6, POC Hematocrit (Misc Panel) 42.0 06/11/21 13:06: Coronavirus (COVID-19)(PCR) NEGATIVE, Influenza Type A (RT-PCR) NEGATIVE, Influenza Type B (RT-PCR) NEGATIVE, Respiratory Syncytial Virus (PCR) NEGATIVE 06/11/21 14:30: CBC/BMP Laboratory Tests 06/11/21 10:46 Home Medications Scheduled Folic Acid (Folic Acid) 1 Mg Tablet, 1 MG PO DAILY Levetiracetam (Keppra) 250 Mg Tablet, 750 MG PO BID Multivitamins (Thera M Plus Tablet) 1 Each Tablet, 1 TAB PO QAM Omeprazole (Omeprazole) 20 Mg Capsule.dr, 40 MG PO DAILY Oxazepam (Oxazepam) 15 Mg Capsule, 30 MG PO ASDIRECTED 2 TAB PO TID X 3 DAYS, 2 TAB PO BID X 3 DAYS Thiamine Hcl (Vitamin B-1) 100 Mg Tablet, 100 MG PO DAILY Scheduled PRN Albuterol Sulfate (Albuterol Sulfate Hfa) 8.5 Gm Hfa.aer.ad, 2 PUFFS INH QID PRN for SHORTNESS OF BREATH Allergies Coded Allergies: No Known Drug Allergies (Verified Allergy, Unknown, 06/11/21) CELSO GARCIA MD Jun 11, 2021 14:39
[2021-06-11] MEDS ORDERED: levETIRAcetam INJection 1,000 MG in D5W 100 ML IV ONE (14:45)
[2021-06-11] MEDS ORDERED: PANTOPRAZOLE 40MG VIAL (C9113 PER 1) IV SCH (15:00)
--- NOTE | 2021-06-11 15:13 | REP ---
INDICATION: Cough. COMPARISON: 06/07/2021. TECHNIQUE: Single portable AP view of the chest was performed. FINDINGS: Mild right upper lobe infiltrate is unchanged. No new infiltrate is seen bilaterally. The heart is not enlarged. The mediastinal silhouette is unchanged. IMPRESSION: Stable exam. <Electronically signed by Ernesto Carpenter > 06/11/21 [id number]
[2021-06-11] MEDS ORDERED: MULTIVITAMIN -ADULT INJECTION 10 ML, THIAMINE INJection 100 MG, FOLIC ACID 1 MG in NS 1... IV ONE (16:00)
[2021-06-11] MEDS ORDERED: HOME MED LIST COMPLETE! XX SCH (16:10)
--- NOTE | 2021-06-11 17:39 | MHCR ---
[facility] CONSULTATION DATE: 06/11/2021 The patient is seen via telepsychiatry due to the current coronavirus crisis. HISTORY OF PRESENT ILLNESS: I was asked to evaluate this 50-year-old man who is refusing the treatment recommended by the emergency room doctor, Dr. Dash, stating that he wants to go home. This patient has a longstanding problem with alcohol abuse. He was recently from 05/21/2021 to 06/07/2021. He was admitted for pneumothorax and then had withdrawal from the alcohol and went into delirium tremens. Ultimately, he was stabilized and he eventually left against medical advice. Dr. Dash states that the family has stated that there is somebody with him constantly. The patient has not drank any alcohol, he says for 35 days, but he was admitted to the hospital on May 21, 2021, so that would put him about three weeks. He was brought to the hospital today because he apparently had a seizure. Dr. Dash feels that the patient is still at high risk, since they do not know the etiology of the seizure, since it not now due to alcohol withdrawal. He did allow blood work to be done and a CT scan, but he is refusing any other evaluations and Dr. Dash feels that he needs hospitalization, that he is at risk of having recurrent seizures or possibly or permanent disability, and this is the reason why they asked me to see the patient, to see if he understands the consequences of refusing treatment. Apparently, the patient's sister is very concerned and she does not feel that the patient is mentally able to make any decisions regarding his treatment. I spoke with the patient, who agreed to talk to me. He appeared to be very confused throughout. He would take a very long time to answer any of my questions, like when I asked him what the date was, it took him quite a while. He finally said it was the . When I asked him specifically about the year, he was eventually able to tell me he was at [facility] but he kept insisting that he wanted to go home because he had an appointment at 3:45 today "with a specialist," but he really could not tell me the name of the specialist or what kind of specialist or why he was seeing this person. He often would give me answers that had nothing to do with the question that I had asked him, and even after I had explained to him what the concerns were from Dr. Dash about recurrent seizures, or permanent disability, he was not able to tell me that he understood any of these particular risks. Every time that I asked him what is the concern about going home, he would just say because he needed to go to his appointment today at 3:45. PAST PSYCHIATRIC HISTORY: The patient is not a reliable historian, though he did tell me that he never had psychiatric treatment before and that he never made any suicidal attempts. I was able to review a consultation that was done by Dr. Hadley on 05/27/2021, when he was in the hospital with delirium tremens from the alcohol withdrawal. Again, he was sort of sedated and not a good historian at that point, but he was seen because the patient wanted to go home and it was felt that the patient was still confused and having delirium tremens (DTs). FAMILY HISTORY: Unknown. SUBSTANCE ABUSE HISTORY: This is as indicated above. Apparently, he does have a history of at least one prior inpatient rehabilitation treatment in the past. ABUSE HISTORY: Unable to obtain. MENTAL STATUS EXAMINATION: He is laying in bed. He is cooperative with psychomotor retardation. As I said, he is not spontaneous. He answers with a simple one or two word answer. At times he is coherent, but there is other times his answers to my questions have nothing to do with what I have asked him, and I repeated my questions multiple times. It was not possible to do a full mental status, because he kept on having problems with processing my questions at times. His insight and judgment is poor. He denied any suicidal or homicidal ideations. I did not elicit any psychotic symptoms. DIAGNOSIS: Unspecified delirium Alcohol use disorder TREATMENT PLAN: At this point, the patient appears to be confused. He does not understand the consequences of refusing medical treatment at this point, and so I feel that he cannot sign out against medical advice. The patient insists that he has not drank in 35 days, but he was in the hospital recently and just discharged only five days ago and he left AMA then so may be possible he was still in delirium then. Please reconsult as needed, MTDD
[2021-06-11] MEDS ORDERED: diazePAM 10MG/2ML SYRINGE (J3360 PER 5MG) IV SCH (18:00)
[2021-06-11] MEDS ORDERED: diazePAM 10MG/2ML SYRINGE (J3360 PER 5MG) IV STA (18:10)
[2021-06-11 18:24] VITALS: BP 131/85
[2021-06-11] MEDS ORDERED: diazePAM 10MG/2ML SYRINGE (J3360 PER 5MG) IV PRN (18:40)
[2021-06-11] MEDS: diazePAM 10MG/2ML SYRINGE (J3360 PER 5MG) IV PRN ×2 (19:29→20:12)
[2021-06-11] MEDS ORDERED: levETIRAcetam INJection 750 MG in D5W 100 ML IV SCH (21:00)
--- NOTE | 2021-06-11 22:23 | IPNPDOC ---
Text Note Date of Service The patient was seen on 06/11/21. NOTE Called by nursing to bedside as patient is requesting to leave AMA. Per staff, he was evaluated by psychiatry earlier today and deemed not to have capacity, now however he is stating he no longer wishes to stay because he would like to go home. He is alert and oriented to person, , place, today's date, that he was brought in for seizures, and was able to solve a hypothetical scenario posed to him regarding what he would do if he were driving and had a flat tire. He answered all of these appropriately. We discussed the risks of him leaving including further seizures and possibly , despite this he continues to wish to leave. AMA form filled out and signed. Patient was escorted downstairs by security. Pick-up order for police was passed onto the nursing guard supervisor to have police pick the patient up as per hospital policy. Because patient was seen by psych earlier and deemed not to have capacity, we do feel this could be intermittent and potentially harmful to the patient which is why we are proceeding with the police sweet pickle maker order. This case was discussed with Dr. Alejo who agreed and stated that this was the policy as she understood it as well. The construction project administrator slag production worker was contacted regarding the policy as well, Regina walton, reached out to CLINICAL APPEALS REVIEWER of the hospital Slade Jacobs who stated once the patient was brought back in, the lack of capacity initially discussed with psychiatry should be honored and the patient should be kept until they are mansoor ssessed and deemed to have capacity. Patient was picked up by police in the hospital parking lot and will be admitted directly to the ICU. This was discussed with nursing guard supervisor as well. Called sister and updated her as well. VS,Fishbone, I+O VS, Fishbone, I+O Laboratory Tests 06/11/21 10:46 Vital Signs Date Time Temp Pulse Resp B/P (MAP) Pulse Ox O2 Delivery O2 Flow Rate FiO2 06/11/21 18:24 100.6 100 17 131/85 (100) 98 Room Air GME ATTESTATION GME ATTESTATION My faculty preceptor for this patient encounter was physically present during the encounter and was fully available. All aspects of the patient interview, examination, medical decision making process, and medical care plan development were reviewed and approved by the faculty preceptor. The faculty preceptor is aware and concurs with the plan as stated in the body of this note and will attest to such by his/her cosignature. THONY SAVAGE DO Jun 11, 2021 22:22
[2021-06-12] MEDS ORDERED: NS 1,000 ML IV SCH (02:00)
[2021-06-12] MEDS ORDERED: MULTIVITAMINS/MINERALS THERAP 1 TAB PO SCH (09:00)
[2021-06-12] MEDS ORDERED: THIAMINE 200MG 2ML VIAL IV SCH (09:00)
[2021-06-12] MEDS ORDERED: FOLIC ACID 1 MG in NS 50 ML IV SCH (09:00)
[2021-06-12] MEDS ORDERED: OMEP-218 PO (13:46)
[2021-06-12] MEDS ORDERED: FOLI1TAB11 PO (13:46)
[2021-06-12] MEDS ORDERED: KEPP250T5 PO (13:46)
[2021-06-12] MEDS ORDERED: OXAZ15CA4 PO (13:46)
[2021-06-12] MEDS ORDERED: THIA100TA PO (13:46)
[2021-06-12] MEDS ORDERED: VITMTA PO (14:04)
--- NOTE | 2021-06-12 20:14 | ECGEPIP ---
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
== END 2021-06-11 20:45 | disposition left against medical advice (07) | DRG 53 ==
LOC: M ED 10:29 → EDBD 10:29 → M ED INP 13:53 → ENRESERV 16:40 → M PCU 17:56
PROVIDERS: ADMIT Internal Medicine; ATTEND Internal Medicine
DX: R56.9 Unspecified convulsions (principal); J43.9 Emphysema, unspecified; F10.239 Alcohol dependence with withdrawal, unspecified; F17.200 Nicotine dependence, unspecified, uncomplicated; Z20.822 Contact with and (suspected) exposure to COVID-19; Z79.899 Other long term (current) drug therapy; F13.939 Sedative, hypnotic or anxiolytic use, unspecified with withdrawal, unspecified; R41.0 Disorientation, unspecified

== ENCOUNTER 2021-06-11 22:02 | Inpatient (IN) | payer BC ==
[~2021-06-11] VITALS: Ht 188 cm; Wt 74.2 kg
[2021-06-11] MEDS: DOCUSATE SODIUM 100MG CAPSULE PO SCH (21:00)
[~2021-06-11 22:02] MED LIST changes: -DOCUSATE SODIUM 100MG CAPSULE PO SCH
--- OUTSIDE RECORDS SUMMARY | 2021-06-11 22:07 | CCD ---
Author Author [facility] Organization [facility] Address Unknown Phone Unavailable Care Team Providers Care Vacuum Cleaner Operator Name Role Phone Fish, B Gurmeet DUTTA [...] Fish, B Gurmeet DUTTA Unavailable Unavailable Fish, [facility], PA-C Unavailable Unavailabl e Fish, [facility], PA-C Unavailable Unavailabl e Fish, [facility], PA-C Unavailable Unavailabl e Fish, [facility], PA-C Unavailable Unavailabl e Fish, [facility], PA-C Unavailable Unavailabl e Fish, [facility], PA-C Unavailable Unavailabl e Fish, [facility], PA-C Unavailable Unavailabl e Fish, [facility], PA-C Unavailable Unavailabl e Fish, [facility], PA-C Unavailable Unavailabl e Fish, [facility], PA-C Unavailable Unavailabl e Fish, [facility], PA-C Unavailable Unavailabl e Fish, [facility], PA-C Unavailable Unavailabl e Fish, [facility], PA-C Unavailable Unavailabl e Fish, [facility], PA-C Unavailable Unavailabl e Fish, [facility], PA-C Unavailable Unavailabl e Fish, [facility], PA-C Unavailable Unavailabl e Fish, [facility], PA-C Unavailable Unavailabl e Fish, [facility], PA-C Unavailable Unavailabl e Fish, [facility], PA-C Unavailable Unavailabl e Fish, [facility], PA-C Unavailable Unavailabl e Fish, [facility], PA-C Unavailable Unavailabl e Fish, [facility], PA-C Unavailable Unavailabl e Fish, Gissel [...] is protected by Article 27-F of the [facility] Public Health law. If you continue you may have access to information: Regarding HIV / AIDS; Provided by facilities licensed or operated by the [facility] Office of Mental Health; or Provided by the [facility] Office for People With Developmental Disabilities. If such information is present, then the following [facility] mandated warning applies: This information has [...] law may result in a fine or fpc sentence or both. A general authorization for [...] Complete: YESThis Data wa s Submitted to [facility] Via [employer]. COVID-19 VACCINE Pfizer 09/18/2020 12:00:00 AM EST completed [facility] Vaccine Series Complete: NOThis Data was Submitted to [facility] [employer]. INFLUENZA VIRUS VACCINE QUADRIVAL [id number](6 MOS AND UP)/PF 05/10/2020 12:00:00 AM EDT [...] type / Coverage type Policy ID Covered alliance party ID Covered alliance party's relationship to palmer Policy Palmer Plan Information [employer] [place]/307 [id number] SP [id number] [employer] [place]/307 [id number] SP [id number] [employer] [place]/307 [id number] SP [id number] [employer] [place]/307 [id number] SP [id number] [employer] [place]/307 [id number] SP [id number] [employer] [place]/307 [id number] SP [id number] [employer] [place]/307 [id number] SP [id number] [employer] [place]/307 [id number] SP [id number] [employer]CELL[employer] B [id number] S [id number] [employer] BCBS B [id number] S [id number] SELF PAY ONLY [id number] SP [id number] [employer]LL[employer] BCBS B [id number] S [id number] [employer] [place]/307 [id number] SP [id number] EXCELLUS BCBS B [id number] S [id number] [employer] [place] 302/307 [id number] SP [id number] Problems, Conditions, and Diagnoses No Information Surgeries/Procedures Procedure Description Date Indications Data Source(s) X-Ray Hip Unilateral With Pelvis 2-3 Views 04/23/2020 12:00:00 AM EDT [facility] ([facility]) Results ID Date Data Source [id number] 05/21/2021 05:14:00 PM EST [facility] ([facility]) Name Value Range Interpretation Code Description Data Meena rce(s) Supporting Document(s) ABG pH (Arterial) 7.458 units 7.350-7.450 Above high normal [facility] ([facility]) ABG Partial Pressure Co2 37.3 mmHg 35.0-45.0 Normal (applies to non-numeric results) [facility] ([facility]) ABG Partial Pressure O2 77.3 mmHg 75.0-100.0 Normal ( applies to non-numeric results) [facility] ([facility]) ABG Hco3 25.8 meq/L 22.0-26.0 Normal (applies to non-numeric resul ts) [facility] ABG Total Co2 27.0 meq/L 22.0-29.0 Normal (applies to non-numeric re sults) [facility] ([facility]) ABG Base Excess 2.1 Above high normal [facility] ([facility]) ABG Standard Hco3 26.3 meq/L 22.0-26.0 Above high normal [facility] ([facility]) ABG O2 Saturation 95.3 % 95.0-99.0 Normal (applies to non-numeri c results) [facility] ([facility]) ID Date Data Source [id number] 05/21/2021 03:40:00 PM EST [facility] Name Value Range Interpretation Code Description Data Meena rce(s) Supporting Document(s) SARS coronavirus 2 RNA [Presence] in Res piratory specimen by JOAO with probe detection NEGATIVE [facility] This lab was ordered by [facility] a nd reported by [facility]. ID Date Data Source [id number] 08/28/2020 12:00:00 AM EST [facility] Name Value Range Interpretation Code Description Data Meena rce(s) Supporting Document(s) SARS-CoV2 Rapid Antigen Negative [facility] and reported by [facility]. ID Date Data Source [id number] 08/02/2020 12:00:00 AM EST [facility] Esther Jean Pa-C Patient Name: TRUNG AGUAYO [id number] [facility] Date of : 1970[place], [place] [address]- Date of Exam: 08/02/2020#: Fax: [phone] EXAM: [...] rce(s) Supporting Document(s) ID Date Data Source [id number] 08/02/2020 12:00:00 AM [facility] Esther Jean Pa-C Patient Name: TRUNG AGUAYO [id number] [facility] Date of : 1970[place] [address]- Date of Exam: 08/02/2020#: Fax: [phone] EXAM: [...] rce(s) Supporting Document(s) ID Date Data Source [id number] 06/10/2020 12:00:00 AM [facility] Gurmeet Jean MD Patient Name: TRUNG AGUAYO [id number] [facility] Date of : 1970[place] [address] Date of Exam: 06/10/2020PH#: Fax: [phone] EXAM: MRI HIP RIGHT WITHOUT CONTRASTCLINICAL INFORMATION: Chronic atraumatic pain.3T multiplanar MRI imaging of the right hip was obtained using varioussequences.There are no prior right hip MRI's for comparison.There is [id number] asymmetric hip joint space narrowing bilaterally. The [...] the left hip trochanteric tendinobursal region.Dedicated small pinoi-nc-hssb magnified images in the right hip in [...] consider followup with hip MRIarthrography.Accredited by the [employer] in MR.AMERICA Macias/Francesca you for referring TRUNG AGUAYO to our office. Electronically Signed - JEANE GUZMAN DO 06/10/20 16:26 Name Value Range Interpretation Code Description Data Meena rce(s) Supporting Document(s) Procedure Social History No Information Vital Signs ID Date Data Source UNK Name Value Range Interpretation Code Description Data Source(s) Body temperature 98.9 [degF] 98.9 [degF] [facility] ([facility]) Body temperature 96.2 [degF] 96.2 [degF] [facility] ([facility]) Body height 72 [in_i] 72 [in_i] [facility] ([facility]) 6'0" Body weight 164.50 [lb_av] 164.50 [lb_av] [facility] T ([facility]) Body mass index (BMI) [Ratio] 22.3 kg/m2 22.3 k g/m2 [facility] ([facility])
[2021-06-11] MEDS ORDERED: MOM 30ML SUSPENSION UDC PO PRN (22:40)
[2021-06-11] MEDS ORDERED: MAALOX 30 ML SUSP *UDC PO PRN (22:40)
[2021-06-11] MEDS ORDERED: HOME MED LIST COMPLETE! XX SCH (22:40)
[2021-06-11] MEDS ORDERED: ACETAMINOPHEN TAB 650MG DOSE (2X325MG) PO PRN (22:40)
[2021-06-11] MEDS ORDERED: LORazepam 2 MG/ML VIAL IV PRN ×2 (22:45)
--- NOTE | 2021-06-11 22:59 | HPEPDOC ---
[facility] Medical History & Physical Date of Admission Jun 11, 2021 Date of Service: Jun 11, 2021 Primary Care Physician: Martin Chu MD Attending Physician: THA DE GUZMAN MD History and Physical Chief complaint: Witnessed seizure earlier today, left AMA, police pecan picker History of present illness: Patient is a 50-year-old male who presented to the ED after police pecan picker due to lack of capacity and leaving AMA. We have since received instructions that we are ok to use physical and chemical restraints to ensure he stays here. Family has been updated about this as well. Patient was admitted to [facility] from for spontaneous pneumothorax requiring a chest tube. Shortly after this had resolved he went into severe alcohol withdrawal and delirium tremens ultimately requiring high amounts of benzodiazepines and eventual intubation on mechanical ventilation with propofol, Precedex, and Versed drip to help with severe withdrawal. He was extubated on 06/06 and opted to leave AGAINST MEDICAL ADVICE on 06/07. Patient is able to converse appropriately and denies any complaints at this time. Per his last note the seizure that he experienced lasted less than 2 minutes. Neurology, Dr. Rousseau was consulted and an EEG order was placed which is been placed again. Patient was also started on Keppra. His sister was updated on current status of his care. Denies any fever, chills, chest pain, difficulty breathing, abdominal pain, nausea, vomiting, constipation, diarrhea, swelling in his arms and legs, seizure-like activity, or confusion. Past Medical History: Alcohol use disorder (severe) Nicotine use disorder Emphysema Recent history of pneumothorax Past Surgical History: Chest tube placed recently (05/21/2021) Allergies: See below Medications: See below Family History: Reviewed and noncontributory Social History: 1 pack/day smoker for 30 years Denies illicit drug use including marijuana, heroin, cocaine, PCP. History of heavy alcohol use, apparently patient did not have any drinks following departure from the hospital on 06/07, so last drink was well over a month ago. Lives alone Works at [email or web address] Review of Systems: 10 point review of systems complete, all negative otherwise stated in HPI Physical exam: - Vitals: Temperature 98.9, heart rate 96 and regular, respiratory rate of 19, blood pressure 146/92 saturating 98% on room air GENERAL APPEARANCE: Thin appearing male lying in bed speaking in full sentences in no acute distress HEENT: NC, AT, EOMI, no scleral icterus, moist mucous membranes, no pharyngeal erythema. CARDIOVASCULAR: RRR, normal S1-S2. No murmurs, gallops, rubs. LUNGS: CTAB with full breath sounds, no wheezes, crackles, or rhonchi. ABDOMEN: Soft, nontender, nondistended, bowel sounds present. EXTREMITIES: No swelling or edema NEUROLOGICAL: No focal or sensory deficits. CN II-XII grossly intact. PSYCHIATRIC: Normal mood and affect Imaging: CT head 06/11: No evidence of acute fracture or dislocation. CT cervical spine 06/11: Mild chronic changes. No acute intracranial hemorrhage, midline shift or mass effect. Chest x-ray 06/11: "FINDINGS: Mild right upper lobe infiltrate is unchanged. No new infiltrate is seen bi laterally. The heart is not enlarged. The mediastinal silhouette is unchanged. IMPRESSION: Stable exam." EKG: See below Assessment and Plan: Seizure - likely 2/2 benzodiazepine withdrawal, possibly 2/2 alcohol withdrawal - Patient had had a recent prolonged hospital stay from 05/21 to 06/07 for alcohol withdrawal - While in the ER, patient had a tonic-clonic seizure that was witnessed - Patient remains hemodynamically stable and afebrile - Patient is saturating well on room air; will continue to follow continuous pulse oximetry - Imaging noted above - Will start Ativan and Serax scheduled as there is a low supply of Valium in the hospital; patient received 100 mg of Valium on 06/11 - Will continue to watch patient in the intensive care unit given that he continues to seize; case was discussed with pulmonology - Psych consulted, patient does not have capacity and has left AMA with police pick-up, per hospital policy, ok to use physical and/or chemical restraints at this point, patient should be re-evaluated by psych following resolution and weaning of benzos for his withdrawal. Heavy alcohol dependence - c/w Telemetry monitoring - Will start thiamine, folate and multivitamins - Will continue with normal saline, s/p banana bag Nicotine dependence - Will provide nicotine patch Emphysema - Recent history of pneumothorax with chest tube placement and removal on prior admission - Patient does not appear to have any shortness of breath -Chest x-ray is stable Gastrointestinal prophylaxis -Continue Protonix DVT prophylaxis -Continue heparin Disposition: Pending clinical improvement Vital Signs Vital Signs Date Time Temp Pulse Resp B/P (MAP) Pulse Ox O2 Delivery O2 Flow Rate FiO2 06/11/21 22:16 98.5 110 19 136/89 (105) 97 Laboratory Data Labs 24H Laboratory Tests 2 06/11/21 22:24: Home Medications Scheduled Folic Acid (Folic Acid) 1 Mg Tablet, 1 MG PO DAILY Levetiracetam (Keppra) 250 Mg Tablet, 750 MG PO BID Multivitamins (Thera M Plus Tablet) 1 Each Tablet, 1 TAB PO QAM Omeprazole (Omeprazole) 20 Mg Capsule.dr, 40 MG PO DAILY Oxazepam (Oxazepam) 15 Mg Capsule, 30 MG PO ASDIRECTED 2 TAB PO TID X 3 DAYS, 2 TAB PO BID X 3 DAYS Thiamine Hcl (Vitamin B-1) 100 Mg Tablet, 100 MG PO DAILY Scheduled PRN Albuterol Sulfate (Albuterol Sulfate Hfa) 8.5 Gm Hfa.aer.ad, 2 PUFFS INH QID PRN for SHORTNESS OF BREATH Allergies Coded Allergies: No Known Drug Allergies (Verified Allergy, Unknown, 06/11/21) GME ATTESTATION GME ATTESTATION My faculty preceptor for this patient encounter was physically present during the encounter and was fully available. All aspects of the patient interview, examination, medical decision making process, and medical care plan development were reviewed and approved by the faculty preceptor. The faculty preceptor is aware and concurs with the plan as stated in the body of this note and will attest to such by his/her cosignature. ATTENDING NOTE IHoda, have independently examined this patient and performed my own physical exam, as well as reviewed the documentation and addend when necessary. I have discussed in detail with the resident / student the findings and plan of treatment as documented by the resident / student. I agree with their findings and treatment plan except for any changes as outlined below. THONY SAVAGE DO Jun 11, 2021 22:59 THA DE GUZMAN MD Jun 15, 2021 04:51
--- OUTSIDE RECORDS SUMMARY | 2021-06-11 23:01 | CCD ---
Author Author [facility] Organization [facility] Address Unknown Phone Unavailable Care Team Providers Care Efficiency Manager Name Role Phone Fish, B Gurmeet DUTTA [...] B Gurmeet DUTTA Unavailable Unavailable Fish, B Gumreet DUTTA Unavailable Unavailable Fish, B Gurmeet DUTTA [...] Fish, B Gurmeet DUTTA Unavailable Unavailable Fish, [facility], PA-C Unavailable Unavailabl e Fish, [facility], PA-C Unavailable Unavailabl e Fish, [facility], PA-C Unavailable Unavailabl e Fish, [facility], PA-C Unavailable Unavailabl e Fish, [facility], PA-C Unavailable Unavailabl e Fish, [facility], PA-C Unavailable Unavailabl e Fish, [facility], PA-C Unavailable Unavailabl e Fish, [facility], PA-C Unavailable Unavailabl e Fish, [facility], PA-C Unavailable Unavailabl e Fish, [facility], PA-C Unavailable Unavailabl e Fish, [facility], PA-C Unavailable Unavailabl e Fish, [facility], PA-C Unavailable Unavailabl e Fish, [facility], PA-C Unavailable Unavailabl e Fish, [facility], PA-C Unavailable Unavailabl e Fish, [facility], PA-C Unavailable Unavailabl e Fish, [facility], PA-C Unavailable Unavailabl e Fish, [facility], PA-C Unavailable Unavailabl e Fish, [facility], PA-C Unavailable Unavailabl e Fish, [facility], PA-C Unavailable Unavailabl e Fish, [facility], PA-C Unavailable Unavailabl e Fish, [facility], PA-C Unavailable Unavailabl e Fish, [facility], PA-C Unavailable Unavailabl e Fish, [...] is protected by Article 27-F of the [facility] Public Health law. If you continue you may have access to information: Regarding HIV / AIDS; Provided by facilities licensed or operated by the [facility] Office of Mental Health; or Provided by the [facility] Office for People With Developmental Disabilities. If such information is present, then the following [facility] mandated warning applies: This information has [...] law may result in a fine or nursing home sentence or both. A general authorization for the release of medical or other information is NOT sufficient authorization for further disc losure. Encounters Encounter Providers Location Date Indications Data Source(s ) OFFICE OUTPATIENT VISIT 15 MINUTES Attender: Esther RUSSELL PA-C Physical Therapy 09/04/2020 08:30:00 AM EST [facility] ([facility]) OFFICE OUTPATIENT VISIT 15 MINUTES Attender: Esther RUSSELL PA-C Physical Therapy 06/18/2020 08:30:00 AM EST [facility] ([facility]) OFFICE OUTPATIENT NEW 30 MINUTES Attender: Gurmeet Jean MD Physic al Therapy 04/23/2020 01:30:00 PM EDT [facility] ([facility]) Immunizations Vaccine Date Status Description Data Source(s) COVID-19 VACCINE Pfizer 10/09/2020 12:00:00 AM EDT completed [facility] Vaccine Series Complete: YESThis Data wa s Submitted to [facility] Via [employer]. COVID-19 VACCINE Pfizer 09/18/2020 12:00:00 AM EST completed [facility] Vaccine Series Complete: NOThis Data was Submitted to [facility] Via [employer]. INFLUENZA VIRUS VACCINE QUADRIVAL [id number](6 MOS AND UP)/PF 05/10/2020 12:00:00 AM EDT [...] type / Coverage type Policy ID Covered libertarian ID Covered libertarian's relationship to palmer Policy [place] Plan Information [employer] [place]/307 [id number] SP [id number] [employer] [place]/307 [id number] SP [id number] [employer] [place]/307 [id number] SP [id number] [employer] [place]/307 [id number] SP [id number] [employer] [place]/307 [id number] SP [id number] [employer] [place]/307 [id number] SP [id number] [employer] B [id number] S [id number] SELF PAY ONLY [id number] SP [id number] [employer] B [id number] S [id number] [employer] [place]/307 [id number] SP [id number] [employer] [place]/307 [id number] SP [id number] [employer] [place]/307 [id number] SP [id number] [employer] [place]/307 [id number] SP [id number] [employer] BC[employer] B [id number] S [id number] [facility] [id number] S [id number] Problems, Conditions, and Diagnoses No Information Surgeries/Procedures Procedure Description Date Indications Data Source(s) X-Ray Hip Unilateral With Pelvis 2-3 Views 04/23/2020 12:00:00 AM EDT [facility] ([facility]) Results ID Date Data Source [id number] 05/21/2021 05:14:00 PM EST [facility] ([facility]) Name Value Range Interpretation Code Description Data Meena rce(s) Supporting Document(s) ABG pH (Arterial) 7.458 units 7.350-7.450 Above high normal [facility] ([facility]) ABG Partial Pressure Co2 37.3 mmHg 35.0-45.0 Normal (applies to non-numeric results) [facility] ([facility]) ABG Partial Pressure O2 77.3 mmHg 75.0-100.0 Normal ( applies to non-numeric results) [facility] ([facility]) ABG Hco3 25.8 meq/L 22.0-26.0 Normal (applies to non-numeric resul ts) [facility] ([facility]) ABG Total Co2 27.0 meq/L 22.0-29.0 Normal (applies to non-numeric re sults) [facility] ([facility]) ABG Base Excess 2.1 Above high normal [facility] ([facility]) ABG Standard Hco3 26.3 meq/L 22.0-26.0 Above high normal [facility] ([facility]) ABG O2 Saturation 95.3 % 95.0-99.0 Normal (applies to non-numeri c results) [facility] ([facility]) ID Date Data Source [id number] 05/21/2021 03:40:00 PM EST [facility] Name Value Range Interpretation Code Description Data Meena rce(s) Supporting Document(s) SARS coronavirus 2 RNA [Presence] in Res piratory specimen by JOAO with probe detection NEGATIVE [facility] This lab was ordered by [facility] a nd reported by [facility]. ID Date Data Source [id number] 08/28/2020 12:00:00 AM EST [facility] Name Value Range Interpretation Code Description Data Meena rce(s) Supporting Document(s) SARS-CoV2 Rapid Antigen Negative [facility] This lab [facility] and reported by [facility]. ID Date Data Source [id number] 08/02/2020 12:00:00 AM EST [facility] Esther Jean Pa-C Patient Name: TRUNG AGUAYO [id number] [facility] Date of : 1970[place], [place] [address]- Date of Exam: 08/02/2020#: Fax: [phone] EXAM: [...] rce(s) Supporting Document(s) ID Date Data Source [id number] 08/02/2020 12:00:00 AM [facility] Esther Jean Pa-C Patient Name: TRUNG AGUAYO [id number] [facility] Date of : 1970[place] [address]- Date of Exam: 08/02/2020#: Fax: [phone] EXAM: [...] rce(s) Supporting Document(s) ID Date Data Source [id number] 06/10/2020 12:00:00 AM [facility] Gurmeet Jean MD Patient Name: TRUNG AGUAYO [id number] [facility] Date of : 1970[place] [address] Date of Exam: 06/10/2020PH#: Fax: [phone] EXAM: MRI HIP RIGHT WITHOUT CONTRASTCLINICAL INFORMATION: Chronic atraumatic pain.3T multiplanar MRI imaging of the right hip was obtained using varioussequences.There are no prior right hip MRI's for comparison.There is zurp-aj-tjrftlsj asymmetric hip joint space narrowing bilaterally. The [...] the left hip trochanteric tendinobursal region.Dedicated small jeyha-kp-whal magnified images in the right hip in [...] consider followup with hip MRIarthrography.Accredited by the [employer] in [place]ER[place] Macias/Francesca you for referring TRUNG AGUAYO to our office. Electronically Signed - JEANE GUZMAN DO 06/10/20 16:26 Name Value Range Interpretation Code Description Data Meena rce(s) Supporting Document(s) Procedure Social History No Information Vital Signs ID Date Data Source UNK Name Value Range Interpretation Code Description Data Source(s) Body temperature 98.9 [degF] 98.9 [degF] [facility] ([facility]) Body temperature 96.2 [degF] 96.2 [degF] [facility] ([facility]) Body height 72 [in_i] 72 [in_i] [facility] ([facility]) 6'0" Body weight 164.50 [lb_av] 164.50 [lb_av] [facility] T ([facility]) Body mass index (BMI) [Ratio] 22.3 kg/m2 22.3 k g/m2 [facility] ([facility])
--- OUTSIDE RECORDS SUMMARY | 2021-06-11 23:02 | CCD ---
Author Author [facility] Organization [facility] Address Unknown Phone Unavailable Care Team Providers Care Process Artist Name Role Phone Fish, B Gurmeet DUTTA [...] Fish, B Gurmeet DUTTA Unavailable Unavailable Fish, [facility], PA-C Unavailable Unavailabl e Fish, [facility], PA-C Unavailable Unavailabl e Fish, [facility], PA-C Unavailable Unavailabl e Fish, [facility], PA-C Unavailable Unavailabl e Fish, [facility], PA-C Unavailable Unavailabl e Fish, [facility], PA-C Unavailable Unavailabl e Fish, [facility], PA-C Unavailable Unavailabl e Fish, [facility], PA-C Unavailable Unavailabl e Fish, [facility], PA-C Unavailable Unavailabl e Fish, [facility], PA-C Unavailable Unavailabl e Fish, [facility], PA-C Unavailable Unavailabl e Fish, [facility], PA-C Unavailable Unavailabl e Fish, [facility], PA-C Unavailable Unavailabl e Fish, [facility], PA-C Unavailable Unavailabl e Fish, [facility], PA-C Unavailable Unavailabl e Fish, [facility], PA-C Unavailable Unavailabl e Fish, [facility], PA-C Unavailable Unavailabl e Fish, [facility], PA-C Unavailable Unavailabl e Fish, [facility], PA-C Unavailable Unavailabl e Fish, [facility], PA-C Unavailable Unavailabl e Fish, [facility], PA-C Unavailable Unavailabl e Fish, [facility], PA-C Unavailable Unavailabl e Fish, [...] is protected by Article 27-F of the [facility] Public Health law. If you continue you may have access to information: Regarding HIV / AIDS; Provided by facilities licensed or operated by the [facility] Office of Mental Health; or Provided by the [facility] Office for People With Developmental Disabilities. If such information is present, then the following [facility] mandated warning applies: This information has [...] law may result in a fine or alf sentence or both. A general authorization for the release of medical or other information is NOT sufficient authorization for further disc losure. Encounters Encounter Providers Location Date Indications Data Source(s ) OFFICE OUTPATIENT VISIT 15 MINUTES Attender: Esther RUSSELL PA-C Physical Therapy 09/04/2020 08:30:00 AM EST [facility] ([facility]) OFFICE OUTPATIENT VISIT 15 MINUTES Attender: Esther RUSSELL PA-C Physical Therapy 06/18/2020 08:30:00 AM EST [facility] ([facility]) OFFICE OUTPATIENT NEW 30 MINUTES Attender: Gurmeet Jean MD Physic al Therapy 04/23/2020 01:30:00 PM EDT [facility] ([facility]) Immunizations Vaccine Date Status Description Data Source(s) COVID-19 VACCINE Pfizer 10/09/2020 12:00:00 AM EDT completed [facility] Vaccine Series Complete: YESThis Data wa s Submitted to [facility] Via [employer]. COVID-19 VACCINE Pfizer 09/18/2020 12:00:00 AM EST completed [facility] Vaccine Series Complete: NOThis Data was Submitted to [facility] Via [employer]. INFLUENZA VIRUS VACCINE QUADRIVAL [id number](6 MOS AND UP)/PF 05/10/2020 12:00:00 AM EDT [...] Plan Information [employer] [place]/307 [id number] SP [id number] [employer] [place]/307 [id number] SP [id number] [employer] [place]/307 [id number] SP [id number] [employer] [place] 302/307 [id number] SP [id number] [employer] [place]/307 [id number] SP [id number] [employer] [place]/307 [id number] SP [id number] [employer]LL[employer] BCBS B [id number] S [id number] SELF PAY ONLY [id number] SP [id number] [employer] BCBS B [id number] S [id number] [employer] [place]/307 [id number] SP [id number] [employer] [place]PO 302/307 [id number] SP [id number] [employer] [place] PPO 302/307 [id number] SP [id number] [employer] [place]PO 302/307 [id number] SP [id number] [employer] BCBS B [id number] S [id number] [id number] [facility] [id number] S [id number] Problems, Conditions, and Diagnoses No Information Surgeries/Procedures Procedure Description Date Indications Data Source(s) X-Ray Hip Unilateral With Pelvis 2-3 Views 04/23/2020 12:00:00 AM EDT [facility] ([facility]) Results ID Date Data Source [id number] 05/21/2021 05:14:00 PM EST [facility] ([facility]) Name Value Range Interpretation Code Description Data Meena rce(s) Supporting Document(s) ABG pH (Arterial) 7.458 units 7.350-7.450 Above high normal [facility] ([facility]) ABG Partial Pressure Co2 37.3 mmHg 35.0-45.0 Normal (applies to non-numeric results) [facility] ([facility]) ABG Partial Pressure O2 77.3 mmHg 75.0-100.0 Normal ( applies to non-numeric results) [facility] ([facility]) ABG Hco3 25.8 meq/L 22.0-26.0 Normal (applies to non-numeric resul ts) [facility] ([facility]) ABG Total Co2 27.0 meq/L 22.0-29.0 Normal (applies to non-numeric re sults) [facility] ([facility]) ABG Base Excess 2.1 Above high normal [facility] ([facility]) ABG Standard Hco3 26.3 meq/L 22.0-26.0 Above high normal [facility] ([facility]) ABG O2 Saturation 95.3 % 95.0-99.0 Normal (applies to non-numeri c results) [facility] ([facility]) ID Date Data Source [id number] 05/21/2021 03:40:00 PM EST [facility] Name Value Range Interpretation Code Description Data Meena rce(s) Supporting Document(s) SARS coronavirus 2 RNA [Presence] in Res piratory specimen by JOAO with probe detection NEGATIVE [facility] This lab was ordered by [facility] a nd reported by [facility]. ID Date Data Source [id number] 08/28/2020 12:00:00 AM EST [facility] Name Value Range Interpretation Code Description Data Meena rce(s) Supporting Document(s) SARS-CoV2 Rapid Antigen Negative [facility] and reported by [facility]. ID Date Data Source [id number] 08/02/2020 12:00:00 AM EST [facility] Esther Jean Pa-C Patient Name: TRUNG AGUAYO [id number] [facility] Date of : 1970[place], [place] [address]- Date of Exam: 08/02/2020#: Fax: [phone] EXAM: [...] AGUAYO to our office. Electronically Signed - COSOM CARPENTER MD 08/12/20 20:04 Name Value Range Interpretation Code Description Data Meena rce(s) Supporting Document(s) ID Date Data Source [id number] 08/02/2020 12:00:00 AM [facility] Esther Jean Pa-C Patient Name: TRUNG AGUAYO [id number] [facility] Date of : 1970[place] [address]- Date of Exam: 08/02/2020#: Fax: [phone] EXAM: [...] rce(s) Supporting Document(s) ID Date Data Source [id number] 06/10/2020 12:00:00 AM [facility] Gurmeet Jean MD Patient Name: TRUNG AGUAYO [id number] [facility] Date of : 1970[place] [address] Date of Exam: 06/10/2020PH#: Fax: [phone] EXAM: MRI HIP RIGHT WITHOUT CONTRASTCLINICAL INFORMATION: Chronic atraumatic pain.3T multiplanar MRI imaging of the right hip was obtained using varioussequences.There are no prior right hip MRI's for comparison.There is frgp-ob-agsdatdp asymmetric hip joint space narrowing bilaterally. The [...] the left hip trochanteric tendinobursal region.Dedicated small bqiwh-gy-tdae magnified images in the right hip in [...] consider followup with hip MRIarthrography.Accredited by the [employer] in [place]ER[place] Macias/Francesca you for referring TRUNG AGUAYO to our office. Electronically Signed - JEANE GUZMAN DO 06/10/20 16:26 Name Value Range Interpretation Code Description Data Meena rce(s) Supporting Document(s) Procedure Social History No Information Vital Signs ID Date Data Source UNK Name Value Range Interpretation Code Description Data Source(s) Body temperature 98.9 [degF] 98.9 [degF] [facility] ([facility]) Body temperature 96.2 [degF] 96.2 [degF] [facility] ([facility]) Body height 72 [in_i] 72 [in_i] [facility] ([facility]) 6'0" Body weight 164.50 [lb_av] 164.50 [lb_av] [facility] T ([facility]) Body mass index (BMI) [Ratio] 22.3 kg/m2 22.3 k g/m2 [facility] ([facility])
[2021-06-11 23:09] VITALS: BP 154/82
[2021-06-11] MEDS: NS 1,000 ML IV SCH (23:41)
[2021-06-11] MEDS: OXAZEPAM 15 MG CAP PO SCH (23:42)
[2021-06-12] VITALS (9 sets, daily range): BP systolic 110–146; BP diastolic 58–92
[2021-06-12] MEDS ORDERED: levETIRAcetam INJection 750 MG in D5W 100 ML IV SCH ×2
[2021-06-12] MEDS: HEPARIN SOD (PORCINE) 5000UNITS/ML 1ML VIAL/SYRINGE SC SCH ×2 (05:46→12:53)
[2021-06-12] MEDS: OXAZEPAM 15 MG CAP PO SCH ×2 (05:55→12:20)
[2021-06-12] MEDS: NS 1,000 ML IV SCH (08:45)
[2021-06-12] MEDS ORDERED: THIAMINE 100 MG TAB PO SCH (09:00)
[2021-06-12] MEDS: DOCUSATE SODIUM 100MG CAPSULE PO SCH (09:00)
[2021-06-12] MEDS ORDERED: OMEPRAZOLE 20 MG CAP PO SCH (09:00)
[2021-06-12] MEDS ORDERED: FOLIC ACID 1 MG TAB PO SCH (09:00)
[2021-06-12] MEDS ORDERED: levETIRAcetam 250MG TABLET (KEPPRA) PO SCH (09:00)
[2021-06-12] MEDS ORDERED: NICOTINE 21MG/24HR 1 EA TRANSDERMAL TD SCH (09:00)
[2021-06-12] MEDS ORDERED: PANTOPRAZOLE 40MG VIAL (C9113 PER 1) IV SCH (09:00)
[2021-06-12] MEDS ORDERED: FOLIC ACID 1 MG in NS 50 ML IV SCH (09:00)
[2021-06-12] MEDS ORDERED: THIAMINE 200MG 2ML VIAL IV SCH (09:00)
[2021-06-12] MEDS ORDERED: FOLI1TAB11 PO (13:46)
[2021-06-12] MEDS ORDERED: OMEP-218 PO (13:46)
[2021-06-12] MEDS ORDERED: OXAZ15CA4 PO (13:46)
[2021-06-12] MEDS ORDERED: KEPP250T5 PO (13:46)
[2021-06-12] MEDS ORDERED: THIA100TA PO (13:46)
[2021-06-12] MEDS ORDERED: VITMTA PO (14:04)
--- NOTE | 2021-06-12 18:49 | DS.PDOC ---
Discharge Summary General Date of Admission Jun 11, 2021 at 22:36 Date of Discharge 06/12/2021 Discharge Summary PROCEDURES PERFORMED DURING STAY: [None]. ADMITTING DIAGNOSES / DISCHARGE DIAGNOSES: s/p Seizure - likely 2/2 benzodiazepine withdrawal, less likely 2/2 alcohol withdrawal Heavy alcohol dependence Nicotine dependence Emphysema Gastrointestinal prophylaxis DVT prophylaxis COMPLICATIONS/CHIEF COMPLAINT: Seizure HISTORY OF PRESENT ILLNESS: Patient is a 50-year-old male with a PMHx of heavy alcohol dependence, nicotine dependence, emphysema, recent history of pneumothorax who presented to the ER on 06/11 after he had a witnessed seizure episode while at home. Patient was recently admitted to [facility] from 05/21 to 06/07 for SOB and was found to have a pneumothorax which had resolved with the chest tube. Patients hospital course was complicated with severe alcohol withdrawal and delirium tremens. Patient required high amounts of benzodiazepines and was eventually intubated and placed on mechanical ventilation started on Propofol, Precedex and Versed drip to help with his severe withdrawal. Patient was ultimately extubated on 06/06 and had opted to leave AGAINST MEDICAL ADVICE on 06/07. On 06/11 morning patient had a seizure and was brought in for evaluation. Psychiatry had evaluated him with the use of an iPad that morning and reported no capacity to make decisions. Patient subsequently had a seizure episode upon my examination and he was subsequently admitted to the hospitalist service for further evaluation and treatment. On the evening of 06/11, patient was adamant that he was going to leave. He backed his belongings and walked out, but was brought back to the hospital after a pickup order was issued by ER providers based on the information at hand. Patient was situated back in his ICU room and has been compliant with therapy until this morning, 06/12, when he reported that he would like to leave again. This morning upon my conversation patient, he was oriented to person, place, time and president. He was able to recall events that happened the day prior. He has indicated to me that Ariel, his brother in law was working with him to see a provider as an outpatient. This was later noted to be establishing his PCP with Dr. Chu. Patient was able to problem solving when given hypothetical situations. He denied any intention of harming himself or others. He reports that he has a girlfriend that lives in [place] and he would like to see her. Patient did allow me to contact his sister, who is power of insurance defense attorney, Marta Whitehead. I called and updated her with the plan of care, given that his mentation has had improvement we can no longer hold him here against his wish because he does in fact have capacity to make decisions at the time of this evaluation. Patient has verbalized clear understanding of the series of events that have transpired and wants to sign out AGAINST MEDICAL ADVICE. I have explained to him the risks of such a decision including worsening of medical condition, additional seizures, disability and/or . He has signed AMA paperwork and he has recited back to me what the risks are. I have conferred with nursing staff, charge nurse, nursing supervisors and administration about the series of events. I have called and updated his primary care provider, Dr. Chu and updated him about the series of events and he will continue his management as an outpatient. HOSPITAL COURSE: s/p Seizure - likely 2/2 benzodiazepine withdrawal, less likely 2/2 alcohol withdrawal - Patient had had a recent prolonged hospital stay from 05/21 to 06/07 for alcohol withdrawal and required high amounts of medications to control them - While in the ER on 06/11, patient had a tonic-clonic seizure that was witnessed - He continues to remains hemodynamically stable and afebrile - Saturating well on room air - Imaging noted above - EEG complete; will have outpatient follow up with PCP and Neurology referral - c/w Keppra 750 BID - c/w Serax; will start taper for 6 days; discussed with PCP will continue taper as an outpatient Heavy alcohol dependence - c/w Telemetry monitoring - s/p Banana bag infusion - c/w thiamine, folate and multivitamins as an outpatient Nicotine dependence - Advised cessation Emphysema - Recent history of pneumothorax with chest tube placement and removal on prior admission - Imaging noted above - Patient does not appear to have any shortness of breath Gastrointestinal prophylaxis - c/w Omeprazole on DC DVT prophylaxis - c/w Heparin DISCHARGE MEDICATIONS: Please see below. ALLERGIES: Please see below. PHYSICAL EXAMINATION ON DISCHARGE: Vitals (See below) General: Sitting up in bed, no acute distress, comfortable, AAOx3 HEENT: NC, AT CVS: +S1S2 Lungs: Fair air entry b/l, no evidence of wheezing, rales or rhonchi Abdomen: Soft, Nondistended and nontender Extremities: No evidence of LE edema LABORATORY DATA: Please see below IMAGING: CT head 06/11: No evidence of acute fracture or dislocation. CT cervical spine 06/11: Mild chronic changes. No acute intracranial hemorrhage, midline shift or mass effect. CXR 06/11: Stable exam ACTIVITY: [As tolerated]. DISCHARGE PLAN: Follow-up with primary care provider, Dr. Chu tomorrow afternoon Remain compliant with treatment plan and medications Abstain from the use of alcohol Return to the ER if you experience any problems DISPOSITION: Against Medical Advice. DISCHARGE CONDITION: [Stable]. TIME SPENT ON DISCHARGE: 35 minutes Vital Signs/I&Os Vital Signs Date Time Temp Pulse Resp B/P (MAP) Pulse Ox O2 Delivery O2 Flow Rate FiO2 06/12/21 08:00 95 139/87 (104) 96 Room Air 06/12/21 07:00 19 06/12/21 05:44 1.0 06/12/21 04:00 97.0 I&O- Last 24 Hours up to 6 AM 06/12/21 06:00 Intake Total 852.5 ml Output Total 0 ml Balance 852.5 ml Laboratory Data Labs 24H Laboratory Tests 2 06/11/21 22:24: Ethyl Alcohol Level < 0.003 Discharge Medications Scheduled Folic Acid (Folic Acid) 1 Mg Tablet, 1 MG PO DAILY Levetiracetam (Keppra) 250 Mg Tablet, 750 MG PO BID Multivitamins (Thera M Plus Tablet) 1 Each Tablet, 1 TAB PO QAM Omeprazole (Omeprazole) 20 Mg Capsule.dr, 40 MG PO DAILY Oxazepam (Oxazepam) 15 Mg Capsule, 30 MG PO ASDIRECTED 2 TAB PO TID X 3 DAYS, 2 TAB PO BID X 3 DAYS Thiamine Hcl (Vitamin B-1) 100 Mg Tablet, 100 MG PO DAILY Scheduled PRN Albuterol Sulfate (Albuterol Sulfate Hfa) 8.5 Gm Hfa.aer.ad, 2 PUFFS INH QID PRN for SHORTNESS OF BREATH, (Reported) Allergies Coded Allergies: No Known Drug Allergies (Verified Allergy, Unknown, 06/11/21) CELSO GARCIA MD Jun 12, 2021 16:43
--- NOTE | 2021-06-14 09:52 | EEG ---
ELECTROENCEPHALOGRAM DATE: 06/12/2021 REFERRING PHYSICIAN: THA DE GUZMAN MD DIAGNOSIS: Seizures, history of alcohol abuse. EEG#: [id number] HISTORY: The patient is a 50-year-old man who was admitted at [facility] due to generalized tonic-clonic seizures. He has a history of alcohol abuse and was hospitalized at [facility] recently. He is currently taking folic acid, thiamine, Keppra, oxazepam, etc. TECHNICAL DESCRIPTION: This digital electroencephalogram (EEG) was recorded by 21 scalp, ear, and two electrocardiogram (EKG) electrodes and was reviewed in bipolar and referential montages following reformatting in 10-20 international electrode placement system. INTERPRETATION: The patient was noted to be in awake and drowsy states during this EEG. Resting and awake background rhythm consisted of well-formed posterior dominant rhythm with anterior/posterior gradient comprising of 20 Hz beta activity measuring 10-20 microvolts in amplitude. Beta activity was likely due to medication effect. Attenuation of posterior dominant rhythm was seen during transition to drowsiness. Stage and II sleep were reviewed and were symmetric bilaterally. Hyperventilation was not performed. Photic stimulation remained unremarkable. No focal, lateralizing, or epileptiform abnormalities were seen. No relevant clinical activity was noted. CONCLUSION: This EEG in awake, drowsy states, stage I and II sleep is within normal limits. Excessive beta activity is due to medication effect. MTDD
== END 2021-06-12 13:43 | disposition left against medical advice (07) | DRG 770 ==
LOC: M ED 22:02 → M PCU 22:36
PROVIDERS: ADMIT Family Medicine; ATTEND Internal Medicine
DX: F13.239 Sedative, hypnotic or anxiolytic dependence with withdrawal, unspecified (principal); J43.9 Emphysema, unspecified; R56.9 Unspecified convulsions; F10.20 Alcohol dependence, uncomplicated; F17.200 Nicotine dependence, unspecified, uncomplicated; Z79.899 Other long term (current) drug therapy; F10.239 Alcohol dependence with withdrawal, unspecified

== ENCOUNTER → 2021-06-17 | Outpatient (CLI) | payer BC ==
[~2021-06-17] MED LIST changes: +FOLI1TAB11 PO; +KEPP250T5 PO; +OMEP-218 PO; +OXAZ15CA4 PO; +THIA100TA PO; +VITMTA PO
--- NOTE | 2021-06-17 13:27 | REP ---
INDICATION: VIRAL UPPER RESPIRATORY INFECTION COMPARISON: 06/11/2021 TECHNIQUE: PA and lateral. FINDINGS: The mediastinum and cardiac silhouette are normal. The lung frederick are clear and without acute consolidation, effusion, or pneumothorax. The skeletal structures are intact and normal. IMPRESSION: No acute cardiopulmonary process. <Electronically signed by Shubham Abbott > 06/17/21 [id number]
== END ==
LOC: M ADAMS 11:26
PROVIDERS: ATTEND Family Medicine
DX: J06.9 Acute upper respiratory infection, unspecified (principal)

== ENCOUNTER → 2021-06-17 | Outpatient (REF) | payer BC ==
[2021-06-17 12:46] LABS: HEMATOCRIT 41.1 % (42.0-52.0); HEMOGLOBIN 13.4 g/dl (13.5-17.5); MEAN CORPUSCULAR HEMOGLOBIN 33.8 pg (27.0-33.0); MEAN CORPUSCULAR HGB CONC 32.6 g/dl (32.0-36.5); MEAN CORPUSCULAR VOLUME 103.8 fl (80.0-96.0); PLATELET COUNT, AUTOMATED 309 10^3/uL (150-450); RED BLOOD COUNT 3.96 10^6/uL (4.30-6.10)
[2021-06-17 13:35] LABS: ALBUMIN 3.2 GM/DL (3.2-5.2); ALT/SGPT 15 U/L (12-78); BILIRUBIN,TOTAL 0.6 MG/DL (0.2-1.0); BLOOD UREA NITROGEN 16 MG/DL (7-18); CARBON DIOXIDE LEVEL 28 MEQ/L (21-32); CHLORIDE LEVEL 99 MEQ/L (98-107); FOLATE 21.3 NG/ML (>5.4); FREE T4 1.03 NG/DL (0.76-1.46); GLOMERULAR FILTRATION RATE > 60.0 (>56); GLUCOSE, FASTING 105 MG/DL (70-100); POTASSIUM SERUM 4.3 MEQ/L (3.5-5.1); SODIUM LEVEL 135 MEQ/L (136-145); TOTAL PROTEIN 7.9 GM/DL (6.4-8.2); VITAMIN B12 LEVEL 793 PG/ML (247-911)
== END ==
LOC: M SFHCADAM 11:17
PROVIDERS: ATTEND Family Medicine
DX: E44.1 Mild protein-calorie malnutrition (principal); G57.93 Unspecified mononeuropathy of bilateral lower limbs; R27.0 Ataxia, unspecified

== ENCOUNTER → 2021-07-02 | Outpatient (CLI) | payer BC ==
[~2021-07-02] MED LIST changes: +OMEP-173 PO; -OMEP-218 PO
== END ==
LOC: M OUTALCOH 07:41
PROVIDERS: ATTEND Psychiatry & Neurology Psychiatry
DX: F10.10 Alcohol abuse, uncomplicated (principal); Z72.0 Tobacco use

== ENCOUNTER → 2021-07-02 | Outpatient (CLI) | payer BC ==
[~2021-07-02] MED LIST changes: +PROHANCE 279.3MG/ML 15ML VIAL ONE
== END ==
LOC: M PLAIMG 14:32
PROVIDERS: ATTEND Family Medicine
DX: R27.0 Ataxia, unspecified (principal)
CPT/HCPCS: 70553; A9576

== ENCOUNTER 2021-07-08 13:51 | Outpatient (RCR) | payer BC ==
[~2021-07-08 13:51] MED LIST changes: -OMEP-173 PO; +OMEP-218 PO; -PROHANCE 279.3MG/ML 15ML VIAL ONE
== END 2021-07-11 ==
LOC: M OUTALCOH 13:51
PROVIDERS: ATTEND Psychiatry & Neurology Psychiatry
DX: F10.10 Alcohol abuse, uncomplicated (principal); Z72.0 Tobacco use

== ENCOUNTER 2021-08-05 08:42 | Outpatient (RCR) | payer BC, OTHER ==
[~2021-08-05 08:42] MED LIST changes: +OMEP-173 PO; -OMEP-218 PO
== END 2021-08-11 ==
LOC: M OUTALCOH 08:42
PROVIDERS: ATTEND Psychiatry & Neurology Psychiatry
DX: F10.10 Alcohol abuse, uncomplicated (principal); Z72.0 Tobacco use

== ENCOUNTER 2021-09-02 09:00 | Outpatient (RCR) | payer OTHER | END 2021-09-08 | LOC: M OUTALCOH 09:00 | PROVIDERS: ATTEND Psychiatry & Neurology Psychiatry | DX: F10.10 Alcohol abuse, uncomplicated (principal); Z72.0 Tobacco use ==

== ENCOUNTER 2021-09-09 10:04 | Outpatient (RCR) | payer OTHER | END 2021-10-09 | LOC: M OUTALCOH 10:04 | PROVIDERS: ATTEND Psychiatry & Neurology Psychiatry | DX: F10.10 Alcohol abuse, uncomplicated (principal); Z72.0 Tobacco use ==

== ENCOUNTER → 2022-05-19 | Outpatient (REF) | payer OTHER ==
[2022-05-19 14:20] LABS: HEMATOCRIT 39.2 % (42.0-52.0); HEMOGLOBIN 12.7 g/dl (13.5-17.5); MEAN CORPUSCULAR HEMOGLOBIN 33.5 pg (27.0-33.0); MEAN CORPUSCULAR HGB CONC 32.4 g/dl (32.0-36.5); MEAN CORPUSCULAR VOLUME 103.4 fl (80.0-96.0); PLATELET COUNT, AUTOMATED 121 10^3/uL (150-450); RED BLOOD COUNT 3.79 10^6/uL (4.30-6.10); WHITE BLOOD COUNT 11.7 10^3/uL (4.0-10.0)
[2022-05-19 15:35] LABS: ALBUMIN 3.8 GM/DL (3.2-5.2); ALT/SGPT 27 U/L (12-78); BILIRUBIN,TOTAL 0.7 MG/DL (0.2-1.0); BLOOD UREA NITROGEN 11 MG/DL (7-18); CALCIUM LEVEL 9.3 MG/DL (8.5-10.1); CARBON DIOXIDE LEVEL 28 MEQ/L (21-32); CHLORIDE LEVEL 103 MEQ/L (98-107); CREATININE FOR GFR 0.68 MG/DL (0.70-1.30); FREE T4 0.67 NG/DL (0.76-1.46); GLOMERULAR FILTRATION RATE > 60.0 (>56); GLUCOSE, FASTING 139 MG/DL (70-100); POTASSIUM SERUM 4.8 MEQ/L (3.5-5.1); SODIUM LEVEL 136 MEQ/L (136-145); TOTAL PROTEIN 7.7 GM/DL (6.4-8.2)
== END ==
LOC: M SFHCADAM 09:16
PROVIDERS: ATTEND Family Medicine
DX: G40.909 Epilepsy, unspecified, not intractable, without status epilepticus (principal); F10.20 Alcohol dependence, uncomplicated; G37.2 Central pontine myelinolysis; F41.9 Anxiety disorder, unspecified; E44.1 Mild protein-calorie malnutrition

== ENCOUNTER 2022-07-12 14:14 | Emergency (ER) | payer OTHER, SELFPAY ==
[~2022-07-12] VITALS: Ht 188 cm; Wt 79.4 kg
[2022-07-12 14:16] VITALS: BP 146/85
[2022-07-12] MEDS ORDERED: ACAM0.05 (14:23)
[2022-07-12] MEDS ORDERED: LISI10TA22 (14:23)
== END 2022-07-12 16:45 | disposition home or self-care (01) ==
LOC: M ED 14:14
DX: B34.9 Viral infection, unspecified (principal); I10 Essential (primary) hypertension; F17.200 Nicotine dependence, unspecified, uncomplicated; Z79.899 Other long term (current) drug therapy

== ENCOUNTER → 2022-07-14 | Outpatient (CLI) | payer OTHER, SELFPAY ==
[~2022-07-14] MED LIST changes: +ACAM0.05; +LISI10TA22
== END ==
LOC: M RAD 08:10
PROVIDERS: ATTEND Family Medicine
DX: Z12.2 Encounter for screening for malignant neoplasm of respiratory organs (principal)

== ENCOUNTER 2022-08-30 13:42 | Emergency (ER) | payer BC, OTHER, SELFPAY ==
[~2022-08-30] VITALS: Ht 188 cm; Wt 82.6 kg
[2022-08-30 13:43] VITALS: BP 122/79
== END 2022-08-30 14:22 | disposition home or self-care (01) ==
LOC: M ED 13:42
DX: Z48.02 Encounter for removal of sutures (principal); I10 Essential (primary) hypertension; F17.200 Nicotine dependence, unspecified, uncomplicated

== ENCOUNTER 2022-09-03 17:03 | Emergency (ER) | payer OTHER ==
[~2022-09-03] VITALS: Ht 188 cm; Wt 79.2 kg
[2022-09-03] MEDS ORDERED: METO1TAB87 (17:13)
[2022-09-03] MEDS ORDERED: OXCA600T8 (17:13)
[2022-09-03] MEDS ORDERED: IBUPROFEN 600MG TAB PO ONE (18:45)
[2022-09-03 20:52] VITALS: BP 146/85
== END 2022-09-03 21:01 | disposition home or self-care (01) ==
LOC: M ED 17:03
DX: M17.11 Unilateral primary osteoarthritis, right knee (principal); M25.461 Effusion, right knee; F17.200 Nicotine dependence, unspecified, uncomplicated; Z79.899 Other long term (current) drug therapy

== ENCOUNTER 2022-11-02 07:24 | Day surgery (SDC) | payer OTHER ==
[~2022-11-02] VITALS: Ht 188 cm; Wt 80.3 kg
[~2022-11-02 07:24] MED LIST changes: +CYCLOPENTOLATE 1% OPHTH SOLN 2ML BTL OS SCH; +FLURBIPROFEN 0.03% OPHTH SOLN 2.5 ML OS SCH; +LIDOCAINE 1% SDV 5ML VIAL As Ordered ONE; -LISI10TA22; +LISI10TA22 PO; +LR 1,000 ML IV SCH; +METO1TAB87 PO; +MIDAZOLAM INJ 2MG/2ML VIAL As Ordered ONE; +OXCA600T8 PO; +PHENYLEPHRINE 2.5% OPHTH SOL 2ML OS SCH; +TETRACAINE 0.5% OPHTH SOLN 4ML OS SCH; +fentaNYL 100 MCG/2 ML INJECTION As Ordered ONE
[2022-11-02] MEDS ORDERED: MIDAZOLAM INJ 2MG/2ML VIAL As Ordered ONE (09:17)
[2022-11-02 09:35] VITALS: BP 146/88
== END 2022-11-02 10:00 | disposition home or self-care (01) ==
LOC: M SDC 07:24
PROVIDERS: ATTEND Ophthalmology
DX: H25.12 Age-related nuclear cataract, left eye (principal); R06.83 Snoring; I10 Essential (primary) hypertension; G40.909 Epilepsy, unspecified, not intractable, without status epilepticus; F17.200 Nicotine dependence, unspecified, uncomplicated; Z79.899 Other long term (current) drug therapy
CPT/HCPCS: 66984; J2250; J3010; V2632

== ENCOUNTER 2022-11-30 09:03 | Day surgery (SDC) | payer OTHER ==
[~2022-11-30] VITALS: Ht 188 cm; Wt 74.8 kg
[~2022-11-30 09:03] MED LIST changes: +CYCLOPENTOLATE 1% OPHTH SOLN 2ML BTL OD SCH; -CYCLOPENTOLATE 1% OPHTH SOLN 2ML BTL OS SCH; +FLURBIPROFEN 0.03% OPHTH SOLN 2.5 ML OD SCH; -FLURBIPROFEN 0.03% OPHTH SOLN 2.5 ML OS SCH; -MIDAZOLAM INJ 2MG/2ML VIAL As Ordered ONE; +PHENYLEPHRINE 2.5% OPHTH SOL 2ML OD SCH; -PHENYLEPHRINE 2.5% OPHTH SOL 2ML OS SCH; +TETRACAINE 0.5% OPHTH SOLN 4ML OD SCH; -TETRACAINE 0.5% OPHTH SOLN 4ML OS SCH; -fentaNYL 100 MCG/2 ML INJECTION As Ordered ONE
[2022-11-30] MEDS ORDERED: fentaNYL 100 MCG/2 ML INJECTION As Ordered ONE (12:43)
[2022-11-30] MEDS ORDERED: MIDAZOLAM INJ 2MG/2ML VIAL As Ordered ONE (12:43)
[2022-11-30 13:02] VITALS: BP 130/84
== END 2022-11-30 13:24 | disposition home or self-care (01) ==
LOC: M SDC 09:03
PROVIDERS: ATTEND Ophthalmology
DX: H25.11 Age-related nuclear cataract, right eye (principal); I10 Essential (primary) hypertension; R56.9 Unspecified convulsions; Z79.899 Other long term (current) drug therapy
CPT/HCPCS: 66984; J2250; J3010; V2632

== ENCOUNTER → 2024-06-14 | Outpatient (REF) | payer MEDICAID ==
[~2024-06-14] MED LIST changes: -CYCLOPENTOLATE 1% OPHTH SOLN 2ML BTL OD SCH; +DOXY-441 PO; -DOXY-443 PO; -FLURBIPROFEN 0.03% OPHTH SOLN 2.5 ML OD SCH; -LIDOCAINE 1% SDV 5ML VIAL As Ordered ONE; -LR 1,000 ML IV SCH; -PHENYLEPHRINE 2.5% OPHTH SOL 2ML OD SCH; -TETRACAINE 0.5% OPHTH SOLN 4ML OD SCH
[2024-06-14 13:21] LABS: HEMATOCRIT 37.1 % (42.0-52.0); MEAN CORPUSCULAR HEMOGLOBIN 30.3 pg (27.0-33.0); MEAN CORPUSCULAR HGB CONC 32.3 g/dl (32.0-36.5); MEAN CORPUSCULAR VOLUME 93.7 fl (80.0-96.0); PLATELET COUNT, AUTOMATED 339 10^3/uL (150-450); RED BLOOD COUNT 3.96 10^6/uL (4.30-6.10); WHITE BLOOD COUNT 12.9 10^3/uL (4.0-10.0)
[2024-06-14 13:46] LABS: FREE T4 1.51 NG/DL (0.89-1.76); THYROID STIMULATING HORMONE 1.678 uIU/ML (0.55-4.78)
[2024-06-14 13:48] LABS: ALBUMIN 3.5 G/DL (3.2-5.2); ALKALINE PHOSPHATASE 67 U/L (40-129); ALT/SGPT 28 U/L (7.0-40); AST/SGOT 20 U/L (<34); BILIRUBIN,TOTAL 0.8 MG/DL (0.3-1.2); BLOOD UREA NITROGEN 23 MG/DL (9-23); CALCIUM LEVEL 9.3 MG/DL (8.5-10.1); CARBON DIOXIDE LEVEL 21 MMOL/L (20-31); CHLORIDE LEVEL 97 MMOL/L (98-107); CHOLESTEROL LEVEL 136 MG/DL (<200); CHOLESTEROL RISK RATIO 2.42 (<5); CREATININE FOR GFR 0.77 MG/DL (0.70-1.30); GLOMERULAR FILTRATION RATE > 60.0 (>56); GLUCOSE, FASTING 91 MG/DL (60-100); HDL CHOLESTEROL 56.1 MG/DL (>40); LDL CHOLESTEROL 63.3 MG/DL (<100); NON-HDL-C 79.9 MG/DL; SODIUM LEVEL 134 MMOL/L (136-145); TOTAL PROTEIN 7.1 G/DL (5.7-8.2); TRIGLYCERIDES LEVEL 83 MG/DL (<150)
[2024-06-14 13:49] LABS: VITAMIN B12 LEVEL 556 PG/ML (211-911)
[2024-06-14 13:50] LABS: FOLATE 13.55 NG/ML (>5.4)
== END ==
LOC: M SFHCADAM 10:05
PROVIDERS: ATTEND Family Medicine
DX: I61.5 Nontraumatic intracerebral hemorrhage, intraventricular (principal); S27.1XXS Traumatic hemothorax, sequela; F10.20 Alcohol dependence, uncomplicated; S06.9XAS Unspecified intracranial injury with loss of consciousness status unknown, sequela; I11.9 Hypertensive heart disease without heart failure

== ENCOUNTER → 2024-07-14 | Outpatient (CLI) | payer MEDICAID | LOC: M RAD 13:40 | PROVIDERS: ATTEND Family Medicine | DX: S27.1XXS Traumatic hemothorax, sequela (principal); Y93.9 Activity, unspecified; Y92.9 Unspecified place or not applicable; I25.84 Coronary atherosclerosis due to calcified coronary lesion; J43.8 Other emphysema ==

== ENCOUNTER → 2024-11-14 | Outpatient (CLI) | payer MEDICAID ==
[2024-11-14 08:11] LABS: HEMATOCRIT 41.1 % (42.0-52.0); HEMOGLOBIN 13.3 g/dl (13.5-17.5); MEAN CORPUSCULAR HGB CONC 32.4 g/dl (32.0-36.5); MEAN CORPUSCULAR VOLUME 89.5 fl (80.0-96.0); PLATELET COUNT, AUTOMATED 295 10^3/uL (150-450); RED BLOOD COUNT 4.59 10^6/uL (4.30-6.10); WHITE BLOOD COUNT 8.1 10^3/uL (4.0-10.0)
[2024-11-14 08:34] LABS: ALBUMIN 3.5 G/DL (3.2-5.2); ALKALINE PHOSPHATASE 92 U/L (40-129); ALT/SGPT 10 U/L (7.0-40); AST/SGOT 9 U/L (<34); BILIRUBIN,TOTAL 0.5 MG/DL (0.3-1.2); BLOOD UREA NITROGEN 13 MG/DL (9-23); CALCIUM LEVEL 9.4 MG/DL (8.5-10.1); CARBON DIOXIDE LEVEL 26 MMOL/L (20-31); CHLORIDE LEVEL 103 MMOL/L (98-107); CHOLESTEROL LEVEL 143 MG/DL (<200); CHOLESTEROL RISK RATIO 3.41 (<5); CREATININE FOR GFR 0.85 MG/DL (0.70-1.30); GLOMERULAR FILTRATION RATE > 90.0 (>56); GLUCOSE, FASTING 129 MG/DL (60-100); HDL CHOLESTEROL 41.9 MG/DL (>40); LDL CHOLESTEROL 83.9 MG/DL (<100); NON-HDL-C 101.1 MG/DL; POTASSIUM SERUM 4.2 MMOL/L (3.5-5.1); SODIUM LEVEL 140 MMOL/L (136-145); TOTAL PROTEIN 7.1 G/DL (5.7-8.2); TRIGLYCERIDES LEVEL 86 MG/DL (<150)
== END ==
LOC: M LAB 07:44
PROVIDERS: ATTEND Family Medicine
DX: I61.5 Nontraumatic intracerebral hemorrhage, intraventricular (principal); I25.10 Atherosclerotic heart disease of native coronary artery without angina pectoris; Z12.5 Encounter for screening for malignant neoplasm of prostate

== ENCOUNTER 2025-01-24 13:55 | Inpatient (IN) | payer MEDICAID ==
[~2025-01-24] VITALS: Ht 189.2 cm; Wt 75.4 kg
[~2025-01-24 13:55] MED LIST changes: +KEPP1TAB2 PO; +LACO100T PO; +LISI20TA33 PO; +RISP-106 PO; +TAMS1CAP17 PO; +TRAZ-252 PO; +[UNRECOGNIZED DRUG - OTHER] PO
[2025-01-24 14:12] VITALS: TEMP 97.9
[2025-01-24] MEDS ORDERED: HOME MED LIST COMPLETE! XX SCH (14:25)
[2025-01-24] MEDS: NS (Normal Saline) 0.9% 1,000 ML IV ONE ×2 (14:27→15:04)
[2025-01-24 14:39] LABS: BASO # 0.1 10^3/uL (0.0-0.2); BASO % 1.1 % (0.0-1.0); EOS # 0.2 10^3/uL (0.0-0.5); EOS % 2.4 % (0.0-3.0); LYMPH # 1.4 10^3/uL (1.5-5.0); LYMPH % 15.2 % (24.0-44.0); MONO # 0.8 10^3/uL (0.0-0.8); MONO % 8.6 % (2.0-8.0); NEUTROPHILS # 6.7 10^3/uL (1.5-8.5); NEUTROPHILS % 72.4 % (36.0-66.0); PLATELET COUNT, AUTOMATED 263 10^3/uL (150-450)
[2025-01-24 14:53] LABS: ETHYL ALCOHOL (ETHANOL) < 0.003 % (0.000-0.010)
[2025-01-24 14:55] LABS: ALT/SGPT 11 U/L (7.0-40); AST/SGOT 22 U/L (<34); CALCIUM LEVEL 8.5 MG/DL (8.5-10.1); CARBON DIOXIDE LEVEL 23 MMOL/L (20-31); CHLORIDE LEVEL 106 MMOL/L (98-107); CREATININE FOR GFR 1.34 MG/DL (0.70-1.30); GLOMERULAR FILTRATION RATE 62.2 (>56); POTASSIUM SERUM 4.3 MMOL/L (3.5-5.1); SODIUM LEVEL 140 MMOL/L (136-145)
[2025-01-24 14:56] LABS: INR 1.09
[2025-01-24 15:07] LABS: MAGNESIUM LEVEL 1.6 MG/DL (1.8-2.4)
[2025-01-24] MEDS: MAG SULF 1GM/100ML (MAG RUN) 1 GM in IV 1 EA IV ONE (15:23)
[2025-01-24 15:31] LABS: SALICYLATE LEVEL < 3.0 MG/DL (<30)
[2025-01-24 15:50] LABS: KETONE, URINE AUTO RFX NEGATIVE (NEGATIVE); LEUKOCYTE ESTERASE UR AUTO RFX NEGATIVE (NEGATIVE); MUCUS, URINE RFX SMALL (NEGATIVE); NITRITE, URINE AUTO RFX NEGATIVE (NEGATIVE); RBC, URINE AUTO RFX 0 /HPF (0-3); SQUAM EPITHELIAL CELL UR AURFX 0 /HPF (0-6); WBC, URINE AUTO RFX 0 /HPF (0-3)
[2025-01-24 16:08] LABS: AMPHETAMINES LEVEL URINE NEGATIVE (NEGATIVE); BARBITURATES URINE NEGATIVE (NEGATIVE); BENZODIAZEPINES URINE NEGATIVE (NEGATIVE); CANNABINOIDS URINE NEGATIVE (NEGATIVE); COCAINE METABOLITE URINE NEGATIVE (NEGATIVE); METHADONE URINE NEGATIVE (NEGATIVE); OPIATES URINE NEGATIVE (NEGATIVE); PHENCYCLIDINE URINE NEGATIVE (NEGATIVE)
[2025-01-24 17:15] VITALS: BP 104/65; O2SAT 96
[2025-01-24] MEDS: NS (Normal Saline) 0.9% 1,000 ML IV SCH (17:35)
== END 2025-01-24 18:10 | disposition left against medical advice (07) | DRG 469 ==
LOC: EDBD 13:55 → M ED 13:55 → M ED INP 17:13
PROVIDERS: ADMIT Internal Medicine Nephrology; ATTEND Internal Medicine Nephrology
DX: N17.9 Acute kidney failure, unspecified (principal); I95.9 Hypotension, unspecified; J84.10 Pulmonary fibrosis, unspecified; E86.0 Dehydration; G40.909 Epilepsy, unspecified, not intractable, without status epilepticus; N40.0 Benign prostatic hyperplasia without lower urinary tract symptoms; I10 Essential (primary) hypertension; F10.90 Alcohol use, unspecified, uncomplicated; Z79.899 Other long term (current) drug therapy; F17.200 Nicotine dependence, unspecified, uncomplicated; Z98.41 Cataract extraction status, right eye

== ENCOUNTER → 2025-02-13 | Outpatient (CLI) | payer MEDICAID ==
[2025-02-13 09:35] LABS: CALCIUM LEVEL 9.0 MG/DL (8.5-10.1); CARBON DIOXIDE LEVEL 26 MMOL/L (20-31); CHLORIDE LEVEL 102 MMOL/L (98-107); CREATININE FOR GFR 0.86 MG/DL (0.70-1.30); GLOMERULAR FILTRATION RATE > 90.0 (>56); POTASSIUM SERUM 4.1 MMOL/L (3.5-5.1); SODIUM LEVEL 140 MMOL/L (136-145)
[2025-02-13 10:11] LABS: ESTIMATED AVERAGE GLUCOSE 114.0 MG/DL (60-110)
== END ==
LOC: M LAB 07:54
PROVIDERS: ATTEND Family Medicine
DX: R73.03 Prediabetes (principal)

== ENCOUNTER → 2025-05-16 | Outpatient (CLI) | payer MEDICAID, OTHER ==
[~2025-05-16] MED LIST changes: -IBUP-1022 PO; +IBUP600T42 PO; -LACO100T PO; +LACO100T11 PO
[2025-05-16 11:30] LABS: PLATELET COUNT, AUTOMATED 243 10^3/uL (150-450)
[2025-05-16 12:06] LABS: ALT/SGPT 16 U/L (7.0-40); AST/SGOT 20 U/L (<34); CALCIUM LEVEL 8.8 MG/DL (8.5-10.1); CARBON DIOXIDE LEVEL 28 MMOL/L (20-31); CHLORIDE LEVEL 105 MMOL/L (98-107); CREATININE FOR GFR 0.86 MG/DL (0.70-1.30); FREE T4 1.22 NG/DL (0.89-1.76); GLOMERULAR FILTRATION RATE > 90.0 (>56); POTASSIUM SERUM 4.8 MMOL/L (3.5-5.1); SODIUM LEVEL 141 MMOL/L (136-145)
== END ==
LOC: M LAB 09:41
PROVIDERS: ATTEND Family Medicine
DX: E44.1 Mild protein-calorie malnutrition (principal); F41.9 Anxiety disorder, unspecified

== ENCOUNTER → 2025-05-24 | Outpatient (CLI) | payer MEDICAID, OTHER | LOC: M ADAMS 10:56 | PROVIDERS: ATTEND Family Medicine | DX: M79.89 Other specified soft tissue disorders (principal); M20.11 Hallux valgus (acquired), right foot ==

== ENCOUNTER → 2025-06-22 | Outpatient (CLI) | payer OTHER ==
[~2025-06-22] MED LIST changes: +CLON1TAB8 PO; +METO25TA4 PO; +NALT50TA4 PO
[2025-06-22 08:31] LABS: PLATELET COUNT, AUTOMATED 235 10^3/uL (150-450)
[2025-06-22 08:49] LABS: ALT/SGPT < 9 U/L (7.0-40); AST/SGOT 13 U/L (<34); CALCIUM LEVEL 8.6 MG/DL (8.5-10.1); CARBON DIOXIDE LEVEL 26 MMOL/L (20-31); CHLORIDE LEVEL 112 MMOL/L (98-107); CREATININE FOR GFR 0.90 MG/DL (0.70-1.30); GLOMERULAR FILTRATION RATE > 90.0 (>56); POTASSIUM SERUM 4.0 MMOL/L (3.5-5.1); SODIUM LEVEL 144 MMOL/L (136-145)
[2025-06-22 08:51] LABS: VITAMIN B12 LEVEL 438 PG/ML (211-911)
== END ==
LOC: M LAB 07:48
PROVIDERS: ATTEND Family Medicine
DX: D64.9 Anemia, unspecified (principal); F10.20 Alcohol dependence, uncomplicated; E44.1 Mild protein-calorie malnutrition

== ENCOUNTER 2025-06-25 18:03 | Inpatient (IN) | payer OTHER ==
[~2025-06-25] VITALS: Ht 188 cm; Wt 79.0 kg
[~2025-06-25 18:03] MED LIST changes: -CLON1TAB8 PO; -METO25TA4 PO; -NALT50TA4 PO
[2025-06-25] MEDS: IPRATROPIUM 0.5 MG/ALBUTEROL 2.5 MG INH SOL UD 3 ML NEB ONE (18:41)
[2025-06-25] MEDS: NS (Normal Saline) 0.9% 1,000 ML IV ONE (19:10)
[2025-06-25 19:18] LABS: BASO # 0.1 10^3/uL (0.0-0.2); BASO % 0.8 % (0.0-1.0); EOS # 0.1 10^3/uL (0.0-0.5); EOS % 0.6 % (0.0-3.0); LYMPH # 1.8 10^3/uL (1.5-5.0); LYMPH % 19.9 % (24.0-44.0); MONO # 0.9 10^3/uL (0.0-0.8); MONO % 9.4 % (2.0-8.0); NEUTROPHILS # 6.3 10^3/uL (1.5-8.5); NEUTROPHILS % 69.0 % (36.0-66.0); PLATELET COUNT, AUTOMATED 218 10^3/uL (150-450)
[2025-06-25 19:38] LABS: ETHYL ALCOHOL (ETHANOL) < 0.003 % (0.000-0.010)
[2025-06-25 19:40] LABS: ALT/SGPT 20 U/L (7.0-40); AST/SGOT 50 U/L (<34); CALCIUM LEVEL 9.2 MG/DL (8.5-10.1); CARBON DIOXIDE LEVEL 29 MMOL/L (20-31); CHLORIDE LEVEL 108 MMOL/L (98-107); CREATININE FOR GFR 0.97 MG/DL (0.70-1.30); GLOMERULAR FILTRATION RATE > 90.0 (>56); POTASSIUM SERUM 3.8 MMOL/L (3.5-5.1); SALICYLATE LEVEL < 3.0 MG/DL (<30); SODIUM LEVEL 141 MMOL/L (136-145)
[2025-06-25 19:43] LABS: CPK CREATINE PHOSPHOKINASE 1281 U/L (46-171)
[2025-06-25] MEDS: NICOTINE 21 MG/24 HR 1 EA TRANSDERMAL TD ONE (20:20)
[2025-06-26 00:27] LABS: AMPHETAMINES LEVEL URINE NEGATIVE (NEGATIVE); BARBITURATES URINE NEGATIVE (NEGATIVE); BENZODIAZEPINES URINE NEGATIVE (NEGATIVE); CANNABINOIDS URINE NEGATIVE (NEGATIVE); COCAINE METABOLITE URINE NEGATIVE (NEGATIVE); METHADONE URINE NEGATIVE (NEGATIVE); OPIATES URINE NEGATIVE (NEGATIVE); PHENCYCLIDINE URINE NEGATIVE (NEGATIVE)
[2025-06-26] MEDS ORDERED: IBUPROFEN 400 MG TAB PO PRN (00:50)
[2025-06-26] MEDS ORDERED: MAALOX 30 ML SUSP *UDC PO PRN (00:50)
[2025-06-26] MEDS ORDERED: ACETAMINOPHEN 325 MG TAB PO PRN (00:50)
[2025-06-26] MEDS ORDERED: MOM 30 ML SUSPENSION UDC PO PRN (00:50)
[2025-06-26 03:00] VITALS: BP 118/69; TEMP 97.3; O2SAT 95
[2025-06-26 08:40] VITALS: BP 125/61; TEMP 97.1; O2SAT 98
[2025-06-26] MEDS: NICOTINE 21 MG/24 HR 1 EA TRANSDERMAL TD SCH (09:00)
[2025-06-26] MEDS: FOLIC ACID 1 MG TAB PO SCH (09:17)
[2025-06-26] MEDS: MULTIVITAMINS/MINERALS THERAP 1 TAB PO SCH (09:17)
[2025-06-26] MEDS: THIAMINE 100 MG TAB PO SCH (09:17)
[2025-06-26] MEDS ORDERED: CLON1TAB8 PO (10:12)
[2025-06-26] MEDS ORDERED: NALT50TA4 PO (10:12)
[2025-06-26] MEDS ORDERED: METO25TA4 PO (10:12)
[2025-06-26] MEDS ORDERED: HOME MED LIST COMPLETE! XX SCH (10:15)
[2025-06-26] MEDS ORDERED: traZODone 50 MG TAB PO PRN (16:35)
[2025-06-26 16:39] VITALS: BP 130/78; TEMP 97.3; O2SAT 97
[2025-06-26] MEDS ORDERED: IPRATROPIUM 0.5 MG/ALBUTEROL 2.5 MG INH SOL UD 3 ML NEB PRN (16:50)
[2025-06-26] MEDS: ESCITALOPRAM OXALATE 10 MG TABLET PO SCH (18:04)
[2025-06-26 18:56] VITALS: BP 124/77; TEMP 97.6
[2025-06-26] MEDS: LACOSAMIDE 50 MG TAB PO SCH (20:28)
[2025-06-26] MEDS: METOPROLOL TART 25 MG TABLET PO SCH (20:29)
[2025-06-27 06:28] VITALS: BP 143/74; TEMP 97.1; O2SAT 96
[2025-06-27] MEDS: TAMSULOSIN 0.4 MG CAP PO SCH (08:09)
[2025-06-27] MEDS: NALTREXONE 50 MG TAB PO SCH (08:09)
[2025-06-27] MEDS: FLUZONE VACCINE TRI PF(25-26) 0.5ML SYRINGE IM.IMMUN ONE (08:12)
[2025-06-27 08:15] VITALS: BP 122/69; TEMP 96.8; O2SAT 97
[2025-06-27 15:13] VITALS: BP 148/97; TEMP 97; O2SAT 98
[2025-06-27 16:10] VITALS: BP 120/66; TEMP 98.1; O2SAT 96
[2025-06-28 06:29] VITALS: BP 125/70; TEMP 97.8; O2SAT 95
[2025-06-28 15:16] VITALS: BP 128/76; TEMP 97.2; O2SAT 95
[2025-06-28] MEDS: traZODone 50 MG TAB PO PRN (20:06)
[2025-06-29 06:18] VITALS: BP 150/94; TEMP 97.8; O2SAT 96
[2025-06-29] MEDS ORDERED: LEXA1TAB PO (08:15)
[2025-06-29 08:34] VITALS: BP 94/56
== END 2025-06-29 15:25 | disposition home or self-care (01) | DRG 751 ==
LOC: M ED 18:03 → M ED INP 06-26 00:49 → M PSY 06-26 02:56
PROVIDERS: ADMIT Student in an Organized Health Care Education/Training Program; ATTEND General Practice
DX: F32.2 Major depressive disorder, single episode, severe without psychotic features (principal); Z91.148 Patient's other noncompliance with medication regimen for other reason; I10 Essential (primary) hypertension; F10.20 Alcohol dependence, uncomplicated; N40.0 Benign prostatic hyperplasia without lower urinary tract symptoms; R41.89 Other symptoms and signs involving cognitive functions and awareness; Z87.820 Personal history of traumatic brain injury; Z79.899 Other long term (current) drug therapy; Z56.0 Unemployment, unspecified; T50.902A Poisoning by unspecified drugs, medicaments and biological substances, intentional self-harm, initial encounter